=== PATIENT | male | born 1960 | race Caucasian/White ===

== ENCOUNTER 2018-05-14 10:48 | Emergency (ER) | payer OTHER ==
[~2018-05-14] VITALS: Ht 182.9 cm; Wt 99.8 kg
[2018-05-14] MEDS ORDERED: IBUPROFEN600 MG PO (11:18)
[2018-05-14] MEDS ORDERED: KEFLEX500 MG PO (11:54)
== END 2018-05-14 12:45 | disposition home or self-care (01) ==
LOC: ED 10:48
DX: S61.032A Puncture wound without foreign body of left thumb without damage to nail, initial encounter (principal); F17.200 Nicotine dependence, unspecified, uncomplicated; X58.XXXA Exposure to other specified factors, initial encounter
CPT/HCPCS: 73140; 99283

== ENCOUNTER 2019-04-14 13:32 | Emergency (ER) | payer OTHER ==
[~2019-04-14] VITALS: Ht 182.9 cm; Wt 99.8 kg
[~2019-04-14 13:32] MED LIST: IBUPROFEN600 MG PO; KEFLEX500 MG PO
[2019-04-14] MEDS ORDERED: ASPIR 8181 MG PO (13:52)
[2019-04-14] MEDS ORDERED: LIPITOR80 MG PO (13:53)
[2019-04-14] MEDS ORDERED: AUGMENTIN 875-1 EACH PO (13:54)
[2019-04-14] MEDS ORDERED: AMOXICILLIN500 MG (13:54)
[2019-04-14] MEDS ORDERED: LISINOPRIL20 MG PO (13:54)
== END 2019-04-14 14:12 | disposition home or self-care (01) ==
LOC: ED 13:32
DX: S40.022A Contusion of left upper arm, initial encounter (principal); F17.200 Nicotine dependence, unspecified, uncomplicated; Z79.82 Long term (current) use of aspirin; Z79.899 Other long term (current) drug therapy; X58.XXXA Exposure to other specified factors, initial encounter
CPT/HCPCS: 93005; 93010; 99283-25

== ENCOUNTER 2019-08-11 13:45 | Emergency (ER) | payer SELFPAY ==
[~2019-08-11] VITALS: Ht 182.9 cm; Wt 99.8 kg
--- OUTSIDE RECORDS SUMMARY | ~2019-08-11 | XMS | Encounter Summary ---
Demographics + + + | Address | NEED ADDRESS | | | [place] [address] | + + + | Home Phone | | + + + | Preferred Language | Unknown | + + + | Marital Status | Single | + + + | Restorationism Affiliation | Unknown | + + + | Race | Unknown | + + + | Ethnic Group | Unknown | + + + Author + + + | Author | [facility] | | | and [place] | + + + | Organization | [facility] | | | and [place] | + + + | Address | Unknown | + + + | Phone | Unavailable | + + + Support + + +---------+ + | Name | Relationship | Address | Phone | + + +---------+ + | Deb Beachceci | ECON | Unknown | | + + +---------+ + | Bong Finley | ECON | Unknown | | + + +---------+ + Care Team Providers + +------+ + | Care Cloth Shrinker Name | Role | Phone | + +------+ + | No, Physician | PCP | Unavailable | + +------+ + Reason for Visit + + + | Reason | Comments | + + + | Chest Pain | | + + + | Dizziness | | + + + Encounter Details +--------+ + + + + | Date | Type | Department | Care Team | Description | +--------+ + + + + | 02/12/ | Emergency | [facility] | Walter Retana MD | Near syncope | | 2017 | | [facility] | [address] | (Primary Dx); | | | | CENTER [address] | [place] | Hyperventilation | | | | [place] | [address] | syndrome | | | | [address] | | | | | | [phone] | | | +--------+ + + + + Social History + +-------+ +--------+------+ | Tobacco Use | Types | Packs/Day | Years | Date | | | | | Used | | + +-------+ +--------+------+ | Current Every Day | | | | | | Smoker | | | | | + +-------+ +--------+------+ + + +---------+ + | Alcohol Use | Drinks/Week | oz/Week | Comments | + + +---------+ + | Yes | | | | + + +---------+ + + + + | Sex Assigned at | Date Recorded | | | | + + + | Not on file | | + + + + + + + | Job Start Date | Occupation | Industry | + + + + | Not on file | Not on file | Not on file | + + + + + + + + | Travel History | Travel Start | Travel End | + + + + + + | No recent travel history available. | + + documented as of this encounter Last Filed Vital Signs + + + + + | Vital Sign | Reading | Time Taken | Comments | + + + + + | Blood Pressure | 190/120 | 02/12/2017 12:12 PM | | | | | PDT | | + + + + + | Pulse | 108 | 02/12/2017 12:12 PM | | | | | PDT | | + + + + + | Temperature | 36.9 C (98.5 F) | 02/12/2017 10:00 AM | | | | | PDT | | + + + + + | Respiratory Rate | 20 | 02/12/2017 9:58 AM | | | | | PDT | | + + + + + | Oxygen Saturation | 97% | 02/12/2017 12:12 PM | | | | | PDT | | + + + + + | Inhaled Oxygen | - | - | | | Concentration | | | | + + + + + | Weight | 104.3 kg (230 lb) | 02/12/2017 9:58 AM | | | | | PDT | | + + + + + | Height | 182.9 cm (6') | 02/12/2017 9:58 AM | | | | | PDT | | + + + + + | Body Mass Index | 31.19 | 02/12/2017 9:58 AM | | | | | PDT | | + + + + + documented in this encounter Discharge Instructions Instructions Walter Retana MD - 02/12/2017Rest and fluids Return for worsening symptoms, not improving, the new complaints documented in this encounter Plan of Treatment Not on filedocumented as of this encounter Procedures + +--------+ + + + | Procedure Name | Priori | Date/Time | Associated Diagnosis | Comments | | | ty | | | | + +--------+ + + + | CT ANGIOGRAM | STAT | 02/12/2017 | | Results for this | | PULMONARY | | 11:06 AM | | procedure are in the | | | | PDT | | results section. | + +--------+ + + + | CT HEAD WO CONTRAST | STAT | 02/12/2017 | | Results for this | | | | 11:06 AM | | procedure are in the | | | | PDT | | results section. | + +--------+ + + + | RAINBOW BLOOD PANEL | STAT | 02/12/2017 | | Results for this | | | | 10:41 AM | | procedure are in the | | | | PDT | | results section. | + +--------+ + + + | EXTRA LAVENDER TOP | STAT | 02/12/2017 | | Results for this | | TUBE | | 10:41 AM | | procedure are in the | | | | PDT | | results section. | + +--------+ + + + | CBC W/AUTO | STAT | 02/12/2017 | | Results for this | | DIFFERENTIAL | | 10:35 AM | | procedure are in the | | | | PDT | | results section. | + +--------+ + + + | EXTRA GOLD TOP TUBE | Routin | 02/12/2017 | | Results for this | | | e | 10:35 AM | | procedure are in the | | | | PDT | | results section. | + +--------+ + + + | TROPONIN I | STAT | 02/12/2017 | | Results for this | | | | 10:35 AM | | procedure are in the | | | | PDT | | results section. | + +--------+ + + + | PROTIME INR | STAT | 02/12/2017 | | Results for this | | | | 10:35 AM | | procedure are in the | | | | PDT | | results section. | + +--------+ + + + | COMPREHENSIVE | STAT | 02/12/2017 | | Results for this | | METABOLIC PANEL | | 10:35 AM | | procedure are in the | | | | PDT | | results section. | + +--------+ + + + | ECG 12 LEAD | STAT | 02/12/2017 | | Results for this | | | | 9:57 AM | | procedure are in the | | | | PDT | | results section. | + +--------+ + + + documented in this encounter Results CT Angiogram Pulmonary (02/12/2017 11:06 AM PDT) + + | Specimen | + + | | + + + + + | Narrative | Performed At | + + + | CT ANGIOGRAM PULMONARY 02/12/2017 10:50 AM HISTORY: SOB. | [facility] | | COMPARISON: None. PROTOCOL: Thin section axial images of the chest | | | were obtained after uneventful administration of 55 mL Omnipaque | | | 350. Coronal and sagittal reformations were acquired. FINDINGS: | | | Neck base is normal. The heart is of normal size. Mild coronary | | | calcium is present. There is minimal atherosclerosis of the aorta. | | | The pulmonary arteries are unremarkable. SVC is normal. No | | | enlarged lymph nodes are seen in the mediastinum, yasmeen, or axillae. | | | Trachea and esophagus demonstrate no acute findings. There is | | | mild dependent atelectasis of the bilateral lungs. The upper | | | abdomen demonstrates no acute findings. Chest wall structures are | | | normal. There is mild spondylosis. IMPRESSION - No evidence for | | | pulmonary embolism, no acute findings. Dictated and Signed by: | | | Greg Wilburn MD Electronically signed: 02/12/2017 11:48 AM | | + + + + + | Procedure Note | + + | Kedar, Rad Results In - 02/12/2017 11:[address] ANGIOGRAM PULMONARY 02/12/2017 10:50 | | AMHISTORY: SOB.COMPARISON: None.PROTOCOL: Thin section axial images of the chest were | | obtained after uneventfuladministration of 55 mL Omnipaque 350. Coronal and sagittal | | reformations wereacquired.FINDINGS:Neck base is normal.The heart is of normal size. Mild | | coronary calcium is present. There is minimalatherosclerosis of the aorta. The | | pulmonary arteries are unremarkable. SVC isnormal.No enlarged lymph nodes are seen in | | the mediastinum, yasmeen, or axillae. Tracheaand esophagus demonstrate no acute | | findings.There is mild dependent atelectasis of the bilateral lungs.The upper abdomen | | demonstrates no acute findings.Chest wall structures are normal. There is mild | | spondylosis.IMPRESSION -No evidence for pulmonary embolism, no acute findings.Dictated | | and Signed by: Greg Wilburn MD Electronically signed: 02/12/2017 11:48 AM | |Neck base is normal. | | | |The heart is of normal size. Mild coronary calcium is present. There is minimal | |atherosclerosis of the aorta. The pulmonary arteries are unremarkable. SVC is | |normal. | | | |No enlarged lymph nodes are seen in the mediastinum, yasmeen, or axillae. Trachea | |and esophagus demonstrate no acute findings. | | | |There is mild dependent atelectasis of the bilateral lungs. | | | |The upper abdomen demonstrates no acute findings. | | | |Chest wall structures are normal. There is mild spondylosis. | | | |IMPRESSION - | |No evidence for pulmonary embolism, no acute findings. | | | |Dictated and Signed by: Greg Wilburn MD | | Electronically signed: 02/12/2017 11:48 AM | + + + +---------+ + + | Performing | Address | City/State/Zipcode | Phone Number | | Organization | | | | + +---------+ + + | [facility] | | | | + +---------+ + + CT Head wo Contrast (02/12/2017 11:06 AM PDT) + + | Specimen | + + | | + + + + + | Narrative | Performed At | + + + | CT HEAD WO CONTRAST 02/12/2017 10:50 AM HISTORY: Pain. | [facility] | | COMPARISON: None. PROTOCOL: Axial images of the head were obtained | | | along with coronal and sagittal reformations. FINDINGS: There | | | is minimal periventricular hypodensity consistent with small vessel | | | ischemic disease. The brain parenchyma demonstrates no evidence for | | | acute infarct, mass lesion, or hemorrhage. The brainstem is | | | unremarkable. The cerebellum is normal. The pituitary gland is | | | grossly normal. The ventricles, cisterns, and sulci are of normal | | | size and shape. Mild atherosclerosis is present of the carotid | | | arteries. The orbits show no acute findings. Paranasal sinuses are | | | clear. Mastoid air cells are normal. Calvarium, temporal bones, | | | and skull base structures are unremarkable. IMPRESSION - No acute | | | intracranial findings. Minimal small vessel ischemic disease. | | | Dictated and Signed by: Greg Wilburn MD Electronically signed: | | | 02/12/2017 11:42 AM | | + + + + + | Procedure Note | + + | Kedar, Rad Results In - 02/12/2017 11:[address] HEAD WO CONTRAST 02/12/2017 10:50 AM | | | | HISTORY: Pain. | | | | COMPARISON: None. | | | | PROTOCOL: Axial images of the head were obtained along with coronal and sagittal | | reformations. | | | | FINDINGS: | | There is minimal periventricular hypodensity consistent with small vessel | | ischemic disease. The brain parenchyma demonstrates no evidence for acute | | infarct, mass lesion, or hemorrhage. The brainstem is unremarkable. The | | cerebellum is normal. The pituitary gland is grossly normal. | | | | The ventricles, cisterns, and sulci are of normal size and shape. | | | | Mild atherosclerosis is present of the carotid arteries. | | | | The orbits show no acute findings. Paranasal sinuses are clear. Mastoid air | | cells are normal. | | | | Calvarium, temporal bones, and skull base structures are unremarkable. | | | | IMPRESSION - | | No acute intracranial findings. | | | | Minimal small vessel ischemic disease. | | | | Dictated and Signed by: Greg Wilburn MD | | Electronically signed: 02/12/2017 11:42 AM | + + + +---------+ + + | Performing | Address | City/State/Zipcode | Phone Number | | Organization | | | | + +---------+ + + | [facility] | | | | + +---------+ + + Extra Lavender Top Tube (02/12/2017 10:41 AM PDT) + +-------+ + + + | Component | Value | Ref Range | Performed | Pathologist | | | | | At | Signature | + +-------+ + + + | Extra | Done | | [facility] | | | Lavender | | | [facility] | | | Top Tube | | | MEDICAL | | | | | | CENTER - | | | | | | LABORATORY | | + +-------+ + + + + + | Specimen | + + | Blood | + + + + + + + | Performing | Address | City/State/Zipcode | Phone Number | | Organization | | | | + + + + + | [facility] | [address] | [place] | [phone] | | [facility] | | [address] | | | - LABORATORY | | | | + + + + + Extra Gold Top Tube (02/12/2017 10:35 AM PDT) + +-------+ + + + | Component | Value | Ref Range | Performed | Pathologist | | | | | At | Signature | + +-------+ + + + | Extra Gold | Done | | [facility] | | | Top Tube | | | [facility] | | | | | | MEDICAL | | | | | | CENTER - | | | | | | LABORATORY | | + +-------+ + + + + + | Specimen | + + | Blood | + + + + + + + | Performing | Address | City/State/Zipcode | Phone Number | | Organization | | | | + + + + + | [facility] | [address] | [place] | [phone] | | [facility] | | [address] | | | - LABORATORY | | | | + + + + + Protime INR (02/12/2017 10:35 AM PDT) + + + + + + | Component | Value | Ref Range | Performed | Pathologist | | | | | At | Signature | + + + + + + | Prothrombin | 12.7 | 11.3 - 13.9 | [facility] | | | Time | | seconds | [facility] | | | | | | MEDICAL | | | | | | CENTER - | | | | | | LABORATORY | | + + + + + + | INR | 0.93Comment: Usual Oral | 0.90 - 1.10 | [facility] | | | | Anticoagulation Range: | | [facility] | | | | 2.0 - 3.0High | | MEDICAL | | | | Level Oral | | CENTER - | | | | Anticoagulation Range: | | LABORATORY | | | | 2.5 - 3.5 | | | | + + + + + + + + | Specimen | + + | Blood | + + + + + + + | Performing | Address | City/State/Zipcode | Phone Number | | Organization | | | | + + + + + | [facility] | [address] | [place], [place] | [phone] | | [facility] | | [address] | | | - LABORATORY | | | | + + + + + Troponin I (02/12/2017 10:35 AM PDT) + + + + + + | Component | Value | Ref Range | Performed | Pathologist | | | | | At | Signature | + + + + + + | Troponin I | 0.02Comment: Reference | <0.06 ng/mL | [facility] | | | | Ranges:0.00-0.06 = | | [facility] | | | | NORMAL>0.06 = | | MEDICAL | | | | SUSPICIOUS FOR | | CENTER - | | | | MYOCARDIAL DAMAGE NOTE: | | LABORATORY | | | | Values greater than 0.50 | | | | | | ng/mL have been shown | | | | | | to be strongly | | | | | | associated with acute | | | | | | myocardial infarction. | | | | | | The [employer] | | | | | | Cardiology (ACC) | | | | | | recommends a decision | | | | | | limit of 0.06 ng/mL for | | | | | | this assay. Results | | | | | | greater than 0.06 can | | | | | | reflect a pre-infarct | | | | | | acute coronary syndrome, | | | | | | but can also reflect | | | | | | myocardial necrosis or | | | | | | injury that is not due | | | | | | to coronary artery | | | | | | disease. Some of these | | | | | | causes are sepsis, | | | | | | hypocolemia, atrial | | | | | | fibrillation, heart | | | | | | failure, pulmonary | | | | | | embolism, myocarditis, | | | | | | myocardial contusion, | | | | | | and renal failure. The | | | | | | diagnosis of myocardial | | | | | | infarction should be | | | | | | based on a combination | | | | | | of the patient's | | | | | | clinical presentation | | | | | | and the clinical | | | | | | laboratory test results | | | | | | (especially serial | | | | | | troponin levels). | | | | + + + + + + + + | Specimen | + + | Blood | + + + + + + + | Performing | Address | City/State/Zipcode | Phone Number | | Organization | | | | + + + + + | [facility] | [address] | [place], [place] | [phone] | | [facility] | | [address] | | | - LABORATORY | | | | + + + + + Comprehensive Metabolic Panel (02/12/2017 10:35 AM PDT) + + + + + + | Component | Value | Ref Range | Performed | Pathologist | | | | | At | Signature | + + + + + + | Na | 138 | 136 - 149 | [facility] | | | | | mmol/L | [facility] | | | | | | MEDICAL | | | | | | CENTER - | | | | | | LABORATORY | | + + + + + + | K | 3.5 | 3.5 - 5.1 | [facility] | | | | | mmol/L | [facility] | | | | | | MEDICAL | | | | | | CENTER - | | | | | | LABORATORY | | + + + + + + | Cl | 102 | 98 - 109 mmol/L | [facility] | | | | | | [facility] | | | | | | MEDICAL | | | | | | CENTER - | | | | | | LABORATORY | | + + + + + + | CO2 | 30 | 24 - 31 mmol/L | [facility] | | | | | | [facility] | | | | | | MEDICAL | | | | | | CENTER - | | | | | | LABORATORY | | + + + + + + | Anion Gap | 6 | 3 - 16 mmol/L | [facility] | | | | | | [facility] | | | | | | MEDICAL | | | | | | CENTER - | | | | | | LABORATORY | | + + + + + + | Glucose | 109 | 70 - 109 mg/dL | [facility] | | | | | | [facility] | | | | | | MEDICAL | | | | | | CENTER - | | | | | | LABORATORY | | + + + + + + | BUN | 10 | 7 - 18 mg/dL | [facility] | | | | | | [facility] | | | | | | MEDICAL | | | | | | CENTER - | | | | | | LABORATORY | | + + + + + + | Creatinine | 1.28 | 0.60 - 1.30 | [facility] | | | | | mg/dL | [facility] | | | | | | [facility]ICAL | | | | | | CENTER - | | | | | | LABORATORY | | + + + + + + | eGFR if not | 58 (L)Comment: | >=60 | [facility] | | | | GLOMERULAR FILTRATION | mL/min/1.73m2 | [facility] | | | [place]I | RATE,ESTIMATED | | MEDICAL | | | | mL/min/1.40o9Frvt than | | CENTER - | | | | 60 Chronic kidney | | LABORATORY | | | | disease,if found over a | | | | | | 3-month period.Less than | | | | | | 15 Kidney failureFor | | | | | | | | | | | | Americans,multiply the | | | | | | calculated GFR by 1.21. | | | | | | | | | | + + + + + + | Calcium | 9.0 | 8.3 - 10.5 | [facility] | | | | | mg/dL | [facility] | | | | | | MEDICAL | | | | | | CENTER - | | | | | | LABORATORY | | + + + + + + | Albumin | 4.1 | 3.2 - 5.0 g/dL | [facility] | | | | | | [facility] | | | | | | MEDICAL | | | | | | CENTER - | | | | | | LABORATORY | | + + + + + + | Bilirubin | 1.0 | 0.1 - 1.5 mg/dL | [facility] | | | Total | | | [facility] | | | | | | MEDICAL | | | | | | CENTER - | | | | | | LABORATORY | | + + + + + + | Total | 7.5 | 6.0 - 7.8 g/dL | [facility] | | | Protein | | | [facility] | | | | | | MEDICAL | | | | | | CENTER - | | | | | | LABORATORY | | + + + + + + | AST | 19 | 10 - 42 U/L | [facility] | | | | | | [facility] | | | | | | MEDICAL | | | | | | CENTER - | | | | | | LABORATORY | | + + + + + + | ALT | 20 | 6 - 45 U/L | [facility] | | | | | | [facility] | | | | | | MEDICAL | | | | | | CENTER - | | | | | | LABORATORY | | + + + + + + | Alkaline | 81 | 40 - 110 U/L | [facility] | | | Phosphatase | | | [facility] | | | | | | MEDICAL | | | | | | CENTER - | | | | | | LABORATORY | | + + + + + + | Globulin | 3.4 | 2.1 - 3.8 g/dL | [facility] | | | | | | [facility] | | | | | | MEDICAL | | | | | | CENTER - | | | | | | LABORATORY | | + + + + + + | Albumin/Clara | 1.2 | 0.8 - 2.0 | [facility] | | | bulin Ratio | | | [facility] | | | | | | MEDICAL | | | | | | CENTER - | | | | | | LABORATORY | | + + + + + + | BUN/Creatin | 7.8 | | [facility] | | | ine Ratio | | | [facility] | | | | | | MEDICAL | | | | | | CENTER - | | | | | | LABORATORY | | + + + + + + + + | Specimen | + + | Blood | + + + + + + + | Performing | Address | City/State/Zipcode | Phone Number | | Organization | | | | + + + + + | [facility] | [address] | [place] | [phone] | | [facility] | | [address] | | | - LABORATORY | | | | + + + + + CBC w/ Auto Differential (02/12/2017 10:35 AM PDT) + + + + + + | Component | Value | Ref Range | Performed | Pathologist | | | | | At | Signature | + + + + + + | WBC | 9.9 | 4.0 - 11.0 K/uL | [facility] | | | | | | [facility] | | | | | | MEDICAL | | | | | | CENTER - | | | | | | LABORATORY | | + + + + + + | RBC | 5.31 | 4.30 - 5.70 | [facility] | | | | | M/uL | [facility] | | | | | | MEDICAL | | | | | | CENTER - | | | | | | LABORATORY | | + + + + + + | Hemoglobin | 16.2 | 13.5 - 18.0 | [facility] | | | | | g/dL | [facility] | | | | | | MEDICAL | | | | | | CENTER - | | | | | | LABORATORY | | + + + + + + | Hematocrit | 48.3 | 40.0 - 51.0 % | [facility] | | | | | | [facility] | | | | | | MEDICAL | | | | | | CENTER - | | | | | | LABORATORY | | + + + + + + | MCV | 91.0 | 83.0 - 101.0 fL | [facility] | | | | | | [facility] | | | | | | MEDICAL | | | | | | CENTER - | | | | | | LABORATORY | | + + + + + + | MCH | 30.6 | 28.0 - 35.0 pg | [facility] | | | | | | [facility] | | | | | | MEDICAL | | | | | | CENTER - | | | | | | LABORATORY | | + + + + + + | MCHC | 33.6 | 32.0 - 36.0 | [facility] | | | | | g/dL | [facility] | | | | | | MEDICAL | | | | | | CENTER - | | | | | | LABORATORY | | + + + + + + | RDW-CV | 12.7 | <15.0 % | [facility] | | | | | | [facility] | | | | | | MEDICAL | | | | | | CENTER - | | | | | | LABORATORY | | + + + + + + | Platelet | 199 | 140 - 440 K/uL | [facility] | | | Count | | | [facility] | | | | | | MEDICAL | | | | | | CENTER - | | | | | | LABORATORY | | + + + + + + | MPV | 9.0 | fL | [facility] | | | | | | [facility] | | | | | | MEDICAL | | | | | | CENTER - | | | | | | LABORATORY | | + + + + + + | % | 73.2 | 45.0 - 82.0 % | [facility] | | | Neutrophils | | | [facility] | | | | | | MEDICAL | | | | | | CENTER - | | | | | | LABORATORY | | + + + + + + | % | 17.3 (L) | 20.0 - 45.0 % | [facility] | | | Lymphocytes | | | [facility] | | | | | | MEDICAL | | | | | | CENTER - | | | | | | LABORATORY | | + + + + + + | % Monocytes | 8.4 | 4.0 - 12.0 % | [facility] | | | | | | [facility] | | | | | | MEDICAL | | | | | | CENTER - | | | | | | LABORATORY | | + + + + + + | % | 0.6 | 0.0 - 5.0 % | [facility] | | | Eosinophils | | | [facility] | | | | | | MEDICAL | | | | | | CENTER - | | | | | | LABORATORY | | + + + + + + | % Basophils | 0.5 | 0.0 - 1.0 % | [facility] | | | | | | [facility] | | | | | | MEDICAL | | | | | | CENTER - | | | | | | LABORATORY | | + + + + + + | Absolute | 7.20 | 1.80 - 8.50 | [facility] | | | Neutrophils | | K/uL | [facility] | | | | | | MEDICAL | | | | | | CENTER - | | | | | | LABORATORY | | + + + + + + | Absolute | 1.70 | 0.60 - 3.20 | [facility] | | | Lymphocytes | | K/uL | [facility] | | | | | | MEDICAL | | | | | | CENTER - | | | | | | LABORATORY | | + + + + + + | Absolute | 0.80 | 0.00 - 1.00 | [facility] | | | Monocytes | | K/uL | [facility] | | | | | | MEDICAL | | | | | | CENTER - | | | | | | LABORATORY | | + + + + + + | Absolute | 0.10 | 0.00 - 0.40 | [facility] | | | Eosinophils | | K/uL | [facility] | | | | | | MEDICAL | | | | | | CENTER - | | | | | | LABORATORY | | + + + + + + | Absolute | 0.00 | 0.00 - 0.10 | [facility] | | | Basophils | | K/uL | [facility] | | | | | | MEDICAL | | | | | | CENTER - | | | | | | LABORATORY | | + + + + + + + + | Specimen | + + | Blood | + + + + + + + | Performing | Address | City/State/Zipcode | Phone Number | | Organization | | | | + + + + + | [facility] | [address] | [place] | [phone] | | [facility] | | [address] | | | - LABORATORY | | | | + + + + + ECG 12 lead (02/12/2017 9:57 AM PDT) + + + + + + | Component | Value | Ref Range | Performed | Pathologist | | | | | At | Signature | + + + + + + | VENTRICULAR | 113 | BPM | [facility] | | | RATE EKG | | | | | + + + + + + | ATRIAL RATE | 113 | BPM | [facility] | | + + + + + + | P-R | 130 | ms | [facility] | | | INTERVAL | | | | | + + + + + + | QRS | 84 | ms | [facility] | | | DURATION | | | | | + + + + + + | Q-T | 348 | ms | [facility] | | | INTERVAL | | | | | + + + + + + | Q-T | 477 | ms | [facility] | | | INTERVAL | | | | | | (CORRECTED) | | | | | + + + + + + | P WAVE AXIS | 57 | degrees | [facility] | | + + + + + + | QRS AXIS | -18 | degrees | [facility] | | + + + + + + | T AXIS | 75 | degrees | [facility] | | + + + + + + | INTERPRETAT | Sinus | | [facility] | | | ION TEXT | tachycardiaOtherwise | | | | | | normal ECGNo previous | | | | | | ECGs availableConfirmed | | | | | | by NINFA TORRES MD | | | | | | ([id number]) on 02/13/2017 | | | | | | 6:56:43 AM | | | | + + + + + + + + | Specimen | + + | | + + + + + | Narrative | Performed At | + + + | | | + + + + +---------+ + + | Performing | Address | City/State/Zipcode | Phone Number | | Organization | | | | + +---------+ + + | [facility] | | | | + +---------+ + + documented in this encounter Visit Diagnoses + + | Diagnosis | + + | Near syncope - Primary Syncope and collapse | + + | Hyperventilation syndrome Respiratory malfunction arising from mental factors | + + documented in this encounter Administered Medications + +--------+ +--------+------+------+ | Medication Order | MAR | Action | Dose | Rate | Site | | | Action | Date | | | | + +--------+ +--------+------+------+ | iohexol (OMNIPAQUE 350) 350 | Given | 02/13/20 | 55 mLs | | | | mg/mL injection 55 mL 55 mL, | | 17 11:00 | | | | | Intravenous, ONCE PRN, Other, for | | AM PDT | | | | | imaging CT study, Starting Jeanine | | | | | | | 02/12/17 at 1050, For 1 dose, | | | | | | | Radiology | | | | | | + +--------+ +--------+------+------+ +---+---+ | | | +---+---+ + +-------+ +--------+---+---+ | LORazepam (ATIVAN) injection | Given | 02/13/20 | 0.5 mg | | | | 0.5 mg 0.5 mg, Intravenous, | | 17 10:42 | | | | | ONCE, Jeanine 02/12/17 at 1015, For 1 | | AM PDT | | | | | dose | | | | | | + +-------+ +--------+---+---+ +---+---+ | | | +---+---+ + +---------+ +--------+-------+---+ | sodium chloride 0.9% (NS) bolus | New Bag | 02/13/20 | 1,000 | 1000 | | | 1,000 mL 1,000 mL, Intravenous, | | 17 11:14 | mLs | mL/hr | | | Administer over 1 Hours, ONCE, | | AM PDT | | | | | Jeanine 02/12/17 at 1015, For 1 dose | | | | | | + +---------+ +--------+-------+---+ +---+---+ | | | +---+---+ + +------+ +--------+-------+---+ | sodium chloride 0.9% (NS) bolus | Push | 02/13/20 | 45 mLs | 2700 | | | 45 mL 45 mL, Intravenous, | | 17 11:00 | | mL/hr | | | Administer over 1 Minutes, ONCE | | AM PDT | | | | | PRN, for imaging CT study, | | | | | | | Starting [facility] 02/12/17 at 1050, For | | | | | | | 1 dose, Radiology | | | | | | + +------+ +--------+-------+---+ +---+---+ | | | +---+---+ documented in this encounter"
--- OUTSIDE RECORDS SUMMARY | ~2019-08-11 | XMS | Encounter Summary ---
Demographics + + + | Address | NEED ADDRESS | | | [place] [address] | + + + | Home Phone | | + + + | Preferred Language | Unknown | + + + | Marital Status | Single | + + + | Restoration Affiliation | Unknown | + + + | Race | Unknown | + + + | Ethnic Group | Unknown | + + + Author + + + | Author | [facility] | | | and [place] | + + + | Organization | [facility] | | | and [...] Team Providers + +------+ + | Care Candy Counter Clerk Name | Role | Phone | + +------+ + | No, Physician | PCP | Unavailable | + +------+ + Reason for Visit + + + | Reason | Comments | + + + | Ankle Injury | | + + + Encounter Details +--------+ + + + + | Date | Type | Department | Care Team | Description | +--------+ + + + + | 08/31/ | Emergency | [facility] | [place], | Sprain of right | | 2018 | | [facility] | [address] [address] | medial ankle joint, | | | | CENTER [address] | [place] | initial encounter | | | | [place] | [address] | (Primary Dx) | | | | [address] | | | | | | [phone] | | | +--------+ + + + + Social History + + + +--------+------+ | Tobacco Use | Types | Packs/Day | Years | Date | | | | | Used | | + + + +--------+------+ | Current Every Day | Cigarettes | 0.04 | | | | Smoker | | | | | + + + +--------+------+ + +---+---+---+ | Smokeless Tobacco: | | | | | Never Used | | | | + +---+---+---+ + + +---------+ + | Alcohol Use | Drinks/Week | oz/Week | Comments | + + +---------+ + | Yes | 6 Cans of beer | 6.0 | week | + + +---------+ + + + [...] + + + | Blood Pressure | 155/97 | 08/31/2017 9:01 AM | | | | | PST | | + + + + + | Pulse | 101 | 08/31/2017 9:01 AM | | | | | PST | | + + + + + | Temperature | 36.4 C (97.5 F) | 08/31/2017 9:01 AM | | | | | PST | | + + + + + | Respiratory Rate | 18 | 08/31/2017 9:01 AM | | | | | PST | | + + + + + | Oxygen Saturation | 93% | 08/31/2017 9:01 AM | | | | | PST | | + + + + + | Inhaled Oxygen | - | - | | | Concentration | | | | + + + + + | Weight | 112.5 kg (248 lb) | 08/31/2017 9:01 AM | | | | | PST | | + + + + + | Height | 182.9 cm (6') | 08/31/2017 9:01 AM | | | | | PST | | + + + + + | Body Mass Index | 33.63 | 08/31/2017 9:01 AM | | | | | PST | | + + + + + documented in this encounter Discharge Instructions Instructions [place] MD - 08/31/2017Ice and elevate for 2 days, crutches and no we ight bearing until pain free. Ankle brace for 1 month. Recheck in one week to start rehab and range of motion exercises Tylenol and ibuprofen as needed for pain. We are committed to improving the emergency department experience for our patients, and reese althea love to hear your feedback. If you receive a customer satisfaction survey either by mail or email, please fill it out and let us know how we are doing! We love to hear about any p ositive experiences, and we need to hear about any areas we can improve upon. We appreciate you taking the time to fill out this survey so we can continue to serve our community in th e best way possible. documented in this encounter Medications at Time of Discharge + + + +---------+ + + | Medication | Sig | Dispensed | Refills | Start | End Date | | | | | | Date | | + + + +---------+ + + | lisinopril | Take 1 tablet by | 30 | 3 | 04/07/20 | | | (PRINIVIL, ZESTRIL) | mouth Daily. | tablet | | 17 | 9 | | 10 mg | | | | | | | tabletIndications: | | | | | | | Essential | | | | | | | hypertension with | | | | | | | goal blood pressure | | | | | | | less than 130/80 | | | | | | + + + +---------+ + + documented as of this encounter Plan of Treatment Not on filedocumented as of this encounter Procedures + +--------+ + + + | Procedure Name | Priori | Date/Time | Associated Diagnosis | Comments | | | ty | | | | + +--------+ + + + | XR ANKLE RIGHT 3 + | STAT | 08/31/2017 | | Results for this | | [facility]W | | 9:38 AM | | procedure are in the | | | | PST | | results section. | + +--------+ + + + documented in this encounter Results XR Ankle Right 3 + Vw (08/31/2017 9:38 AM PST) + + | Specimen | + + | | + + + + + | Narrative | Performed At | + + + | EXAM:XR ANKLE RIGHT 3 + [facility]W CLINICAL HISTORY: ANKLE INJURY | [facility] | | COMPARISON: None. FINDINGS: 4 nonweightbearing views of the right | | | ankle. There is diffuse soft tissue swelling. There are multiple | | | radiopaque densities projecting in the soft tissues of the inferior | | | and lateral hindfoot. Irregularities at the distal aspect of the | | | malleoli are consistent with remote trauma. No acute fracture. No | | | current malalignment. There is a small plantar calcaneal spur. | | | IMPRESSION - No acute osseous abnormality. Diffuse soft | | | tissue swelling. Multiple radiopaque densities in the soft tissues | | | of the lateral and inferior hindfoot. Dictated and Signed by: | | | Oskar Gutierrez MD Electronically signed: 08/31/2017 9:44 AM | | + + + + + | Procedure Note | + + | Bennett Thacker Results In - 08/31/2017 9:47 AM PST EXAM:XR ANKLE RIGHT 3 + [facility] | | | | CLINICAL HISTORY: ANKLE INJURY | | | | COMPARISON: None. | | | | FINDINGS: 4 nonweightbearing views of the right ankle. | | | | There is diffuse soft tissue swelling. There are multiple radiopaque densities | | projecting in the soft tissues of the inferior and lateral hindfoot. | | Irregularities at the distal aspect of the malleoli are consistent with remote | | trauma. No acute fracture. No current malalignment. There is a small plantar | | calcaneal spur. | | | | IMPRESSION - | | | | No acute osseous abnormality. | | | | Diffuse soft tissue swelling. | | | | Multiple radiopaque densities in the soft tissues of the lateral and inferior | | hindfoot. | | | | Dictated and Signed by: Oskar Gutierrez MD | | Electronically signed: 08/31/2017 9:44 AM | + + + +---------+ + + | Performing | Address | City/State/Zipcode | Phone Number | | Organization | | | | + +---------+ + + | [facility] | | | | + +---------+ + + documented in this encounter Visit Diagnoses + + | Diagnosis | + + | Sprain of right medial ankle joint, initial encounter - Primary | + + documented in this encounter Administered Medications + +--------+ +--------+------+------+ | Medication Order | MAR | Action | Dose | Rate | Site | | | Action | Date | | | | + +--------+ +--------+------+------+ | acetaminophen (TYLENOL) tablet | Given | 08/31/19 | 650 mg | | | | 650 mg 650 mg, Oral, ONCE PRN, | | 18 9:38 | | | | | Pain, Starting 08/31/17 at | | AM PST | | | | | 0914, For 1 dose | | | | | | + +--------+ +--------+------+------+ +---+---+ | | | +---+---+ + +-------+ +--------+---+---+ | ibuprofen (ADVIL,MOTRIN) tablet | Given | 08/31/19 | 600 mg | | | | 600 mg 600 mg, Oral, ONCE, Mon | | 18 9:38 | | | | | 08/31/17 at 0920, For 1 dose, Give | | AM PST | | | | | with food., | | | | | | + +-------+ +--------+---+---+ +---+---+ | | | +---+---+ documented in this encounter"
--- OUTSIDE RECORDS SUMMARY | ~2019-08-11 | XMS | Encounter Summary ---
Demographics + + + | Address | NEED ADDRESS | | | [place] [address] | + + + | Home Phone | | + + + | Preferred Language | Unknown | + + + | Marital Status | Single | + + + | Faith Affiliation | Unknown | + + + | Race | Unknown | + + + | Ethnic Group | Unknown | + + + Author + + + | Author | [facility] | | | and [place] | + + + | Organization | [facility] | | | and [place] | + + + | Address | Unknown | + + + | Phone | Unavailable | + + + Support + + +---------+ + | Name | Relationship | Address | Phone | + + +---------+ + | Deb Tabares | ECON | Unknown | | + + +---------+ + | Bong Finley | ECON | Unknown | | + + +---------+ + Care Team Providers + +------+ + | Care Chemical Process Operator Name | Role | Phone | + +------+ + | Marshall Sanchez PA-C | PCP | | + +------+ + Reason for Visit + + + | Reason | Comments | + + + | Weakness | | + + + | Slurred Speech | | + + + Auth/Cert +--------+--------+ + + + + | Status | Reason | Specialty | Diagnoses / | Referred By | Referred To | | | | | Procedures | Contact | Contact | +--------+--------+ + + + + | | | | Diagnoses | | | | | | | | | | | | | | Hyperglycemi | | | | | | | a | | | | | | | 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) | | | | | | | | | | | | | | Hypertensive | | | | | | | emergency | | | | | | | Essential | | | | | | | hypertension | | | | | | | with goal | | | | | | | blood | | | | | | | pressure | | | | | | | less than | | | | | | | 130/80 | | | | | | | Cerebrovascu | | | | | | | lar accident | | | | | | | (CVA), | | | | | | | unspecified | | | | | | | mechanism | | | | | | | (HCC) | | | | | | | | | | +--------+--------+ + + + + Encounter Details +--------+ + + + + | Date | Type | Department | Care Team | Description | +--------+ + + + + | 04/05/ | Hospital | [facility] | Greg Rick | Hyperglycemia | | 2019 - | Encounter | [facility] | MD León [address] | (Primary Dx); | | | | [address] | [address] | Cerebrovascular | | 04/12/ | | [place] [address] | [place] [address] | accident (CVA), | | 2019 | | [phone] | [phone] | unspecified | | | | | | mechanism (HCC); | | | | | Rachna Retana MD | Amphetamine abuse | | | | | [address] | (HCC); Hypertensive | | | | | [place], [place] | emergency; Essential | | | | | [id number] | hypertension with | | | | | | goal blood pressure | | | | | | less than 130/80 | +--------+ + + + + Social [...] 6 Cans of beer | 6.0 | | + + +---------+ + + [...] + + + | Blood Pressure | 158/96 | 04/12/2019 7:51 AM | | | | | PDT | | + + + + + | Pulse | 72 | 04/12/2019 7:51 AM | | | | | PDT | | + + + + + | Temperature | 36.4 C (97.5 F) | 04/12/2019 7:51 AM | | | | | PDT | | + + + + + | Respiratory Rate | 18 | 04/12/2019 7:51 AM | | | | | PDT | | + + + + + | Oxygen Saturation | 96% | 04/12/2019 7:51 AM | | | | | PDT | | + + + + + | Inhaled Oxygen | - | - | | | Concentration | | | | + + + + + | Weight | 84.4 kg (186 lb 1.1 | 04/06/2019 2:41 AM | | | | oz) | PDT | | + + + + + | Height | 182.9 cm (6') | 04/06/2019 2:41 AM | | | | | PDT | | + + + + + | Body Mass Index | 25.24 | 04/06/2019 2:41 AM | | | | | PDT | | + + + + + documented in this encounter Discharge Summaries Matthew Davies MD - 04/11/2019 4:06 PM PDTFormatting of this note might be different from t he original. [place], [place] HOSPITALIST DISCHARGE SUMMARY Pt. Name/Age/: Dannie Win 58 y.o. 1960 Date of Admission: 04/05/2019 Date of Discharge: 04/11/2019 Admitting Physician: Rachna Retana MD Primary Care Provider: Marshall Sanchez PA-C Discharging Physician: Matthew Davies MD DISCHARGE DIAGNOSES: Active Hospital Problems Diagnosis Stroke (cerebrum) Resolved Hospital Problems No resolved problems to display. DISCHARGE MEDICATIONS: Discharge Medications New Medications Details amoxicillin-clavulanate 875-125 mg per tablet Take 1 tablet by mouth 2 times daily. Follow up with dentist for extraction of right upper teeth causing right sinusitis Indications: sinusitis dental infection aka: AUGMENTIN aspirin 81 MG EC tablet Take 1 tablet by mouth Daily. For stroke prevention. Follow with family doctor for refills aka: ASPIRIN ADULT LOW STRENGTH atorvaSTATin 80 MG tablet Take 0.5 tablets by mouth Daily. For stroke prevention. Follow with family doctor for refi lls aka: LIPITOR Changed Medications Details lisinopril 20 mg tablet Take 1 tablet by mouth Daily. Follow with family doctor What changed: medication strength how much to take additional instructions aka: [facility] HOSPITAL COURSE: Please refer to the H&P for full details and the most recent rounding rounding (progress) n ote. In short, Dannie Win is a 58 y.o. m w/ Left sided facial droop, slurred speech a nd unable to move or feel left sided extremities, and hypertensive, w/ Meth + on tox screen consistent w/ Right cerebral CVA acute, declined MRI to confirm. Somnolent initially, improv ed throughout hospitalization w/ improved but ongoing left sided/facial weakness, treated w/ ASA/statin. HTN treated w/ increasing home lisinopril. Right maxillary sinusitis likely due to poor right maxillary dentition and communication, f ever/malaise resolved w/ unasyn then discharge w/ augmentin, needs dentist follow up/extract ions to prevent recurrent sinusitis. Patient was ambulating w/ mild limp/tolerating diet with much snacking/having BM prior to d ischarge. Pending SNF placement for ongoing rehab for left sided weakness. In detail Total duration of encounter: 6 days R CVA acute, ongoing stable improving left sided mobility, resolved somnolence Right handed --initial CTA neg and subsequent CT head neg / CTA carotid neg / tele neg Refused MRI / echo w/ bubble negative --hdl41 ldl 48/ A1c 5 --permissive HTN --asa does not take at baseline, started, started statin -- repeat CT w/o expectant acute right ischemia HTN emergency resolved Off nicardipine gtt, s/p labetolol overnight x 1 --resumed home and increased lisinopril Right maxillary sinusitis/bronchittis due to connecting Poor dentition unasyn --> augmentin / prn duonebs Needs dentist for extraction Meth/smoker/ Homelessness Banana bag Untreated hep C DVT prophylaxis - lovenox / Disposition - snf per PT/OT Plan discussed with patient. 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 04/09 ongoing left sided weakness mild, able to ambulate w/ assist in room w/ limp, declined nebs. Discussed nebs to be helpful for sinusitis 04/10 no issues overnight, ambulates w/ limp, continues to refuse duoneb / administration 04/11 ambulated, less weak Treatment log Off nicardipine 2100 04/05 04/07 lisinopril, unasyn 04/08 duonebs BID 04/09 augmentin, dc unasyn 04/10 change nebs to PRN 04/11 no change Most recent weight: Input and output for last 24hrs: Wt Readings from Last 1 Encounters: 04/06/19 84.4 kg (186 lb 1.1 oz) I/O last 24 Hours: In: 940 [P.O.:940] Out: 1275 [Urine:1275] Vitals Ranges: Temp: [35.8 C (96.4 F)-36.4 C (97.5 F)] 35.8 C (96.4 F) Pulse: [70-75] 70 Resp: [16-20] 16 BP: (142-198)/(80-92) 144/92 Vitals: Temp: 35.8 C (96.4 F) BP: (!) 144/92 Pulse: 70 Resp: 16 SpO2: 96 % SpO2 96 % on room air at flow rate L/min Labs last 24 hours No results found for this or any previous visit (from the past 24 hour(s)). Micro results Microbiology Results (72 hrs) No results found for the last 72 hours. Radiology results Echo 04/06/19 1. This is a technically very limited study due to a poor acoustic window. 2. Normal left ventricular size, wall thickness and motion. Preserved left ventricular systolic function. LVEF is 55%. 3. Grade 1 left ventricular diastolic dysfunction. 4. Not well visualized valvular structure. 5. Not able to assess right-sided pressure. 6. Not well visualized IVC. 7. Negative agitated saline bubble study at rest, during Valsalva and coughing maneuver. 04/05/19 CTa No acute intracranial abnormality identified. Negative CTA of the head and neck or any acute occlusion or dissection. 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 Multiple severe/large periapical root abscesses. One of the periapical root abscesses is seen to erode through the floor of the right maxillary sinus and may be a cause for the severe right-sided maxillary sinus and ethmoid air cell mucosal thickening/inflammatory changes. 04/08/19 CT head noncontrast 1. NO EVIDENCE OF EVOLVING ISCHEMIA OR OTHER ACUTE INTRACRANIAL DISEASE. 2. 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 3. SLIGHT IMPROVEMENT IN RIGHT MAXILLARY SINUS OPACIFICATION WITH PERSISTENT ETHMOID SINUS DISEASE AND INCREASED MILD PARANASAL SINUS DISEASE OTHERWISE DESCRIBED. PERIAPICAL LUCENCIES INVOLVING RESIDUAL ERODED MAXILLARY TEETH ARE AGAIN NOTED, AND POTENTIAL COMMUNICATION WITH THE RIGHT MAXILLARY SINUS IS AGAIN SUGGESTED. PROCEDURES AND CONSULTS: albina PENDING RESULTS: na DISPOSITION AND DISCHARGE INSTRUCTIONS: Follow-up Information Marshall Sanchez PA-C. Go on 04/15/2019. 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 Contact information: [address] [place] [phone] Condition: Patient being discharged with condition improved Diet: For your reference, current, active order is: Diet fat and cholesterol modified; dental soft; thin liquids allowed; Effective Now greater than 30 minutes were spent on discharge and coordination of post-hospital care. Electronically signed by: Matthew Davies MD, 04/11/2019 7:58 [facility] documented in this enco unter Medications at Time of Discharge + + + +---------+ + + | Medication | Sig | Dispensed | Refills | Start | End Date | | | | | | Date | | + + + +---------+ + + | | Take 1 tablet by | 10 | 0 | 04/10/20 | | | amoxicillin-clavulan | mouth 2 times daily. | tablet | | 19 | | | ate (AUGMENTIN) | Follow up with | | | | | | 875-125 mg per | dentist for | | | | | | tabletIndications: | extraction of right | | | | | | sinusitis dental | upper teeth causing | | | | | | infection | right sinusitis | | | | | | | Indications: | | | | | | | sinusitis dental | | | | | | | infection | | | | | + + + +---------+ + + | aspirin (ASPIRIN | Take 1 tablet by | 30 | 0 | 04/10/20 | | | ADULT LOW STRENGTH) | mouth Daily. For | tablet | | 19 | | | 81 MG EC tablet | stroke prevention. | | | | | | | Follow with family | | | | | | | doctor for refills | | | | | + + + +---------+ + + | atorvaSTATin | Take 0.5 tablets by | 30 | 0 | 04/11/20 | | | (LIPITOR) 80 MG | mouth Daily. For | tablet | | 19 | | | tablet | stroke prevention. | | | | | | | Follow with family | | | | | | | doctor for refills | | | | | + + + +---------+ + + | lisinopril | Take 1 tablet by | 30 | 0 | 04/11/20 | | | (PRINIVIL, ZESTRIL) | mouth Daily. Follow | tablet | | 19 | | | 20 mg tablet | with family doctor | | | | | + + + +---------+ + + documented as of this encounter Progress Notes Rohan Gaines RN - 04/12/2019 11:17 AM PDTPatient discharge instructions reviewe d, all prescriptions given to and reminded to fill at [facility] in [facility], remin ded to stay off of drugs and alcohol for his health and well being, reminded that she has a follow-up with a new PCP, all questions answered. Electronically signed by: Rohan Hobson RN 04/12/2019 11:19 Matthew Petersen MD - 04/11/2019 4:08 PM PDT [facility] PROGRESS NOTE Patient: Dannie Win : 1960: Age: 58 y.o. MedRec: [id number] Admission date: 04/05/2019 Hospital day # : 5 Physician author: Matthew Davies MD Today: 04/11/2019 Reason for hospitalization Left sided facial droop, slurred speech and unable to move or feel left sided extremities, and hypertensive Meth + Echo 04/06/19 1. This is a technically very limited study due to a poor acoustic window. 2. Normal left ventricular size, wall thickness and motion. Preserved left ventricular sy stolic function. LVEF is 55%. 3. Grade 1 left ventricular diastolic dysfunction. 4. Not well visualized valvular structure. 5. Not able to assess right-sided pressure. 6. Not well visualized IVC. 7. Negative agitated saline bubble study at rest, during Valsalva and coughing maneuver. Assessment and Plan Active Hospital Problems Diagnosis Stroke (cerebrum) Poor dentition Acute recurrent maxillary sinusitis Resolved Hospital Problems No resolved problems to display. Hospital Day: 7 R CVA acute, ongoing stable improving left sided mobility, resolved somnolence Right handed --initial CTA neg and subsequent CT head neg / CTA carotid neg / tele neg Refused MRI / echo w/ bubble negative --hdl41 ldl 48/ A1c 5 --permissive HTN --asa does not take at baseline, started, started statin -- repeat CT w/o expectant acute right ischemia HTN emergency resolved Off nicardipine gtt, s/p labetolol overnight x 1 --resumed home and increased lisinopril Right maxillary sinusitis/bronchittis due to connecting Poor dentition unasyn --> augmentin / prn duonebs Needs dentist for extraction Meth/smoker/ Homelessness Banana bag Untreated hep C DVT prophylaxis - lovenox / Disposition - snf per PT/OT Plan discussed with patient. 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 04/09 ongoing left sided weakness mild, able to ambulate w/ assist in room w/ limp, declined nebs. Discussed nebs to be helpful for sinusitis 04/10 no issues overnight, ambulates w/ limp, continues to refuse duoneb 1/2 administration 04/11 ambulated, less weak Treatment log Off nicardipine 2100 04/05 04/07 lisinopril, unasyn 04/08 duonebs BID 04/09 augmentin, dc unasyn 04/10 change nebs to PRN 04/11 no change Exam On room air General NAD still found awake, tanned skin, poor dentition Cardiac S1 S2 RRR 2+ radial pulses Lung CTAB, coarse coughing, sinus congestion quality of voice Abdominal soft nt nd + BS Neuro no dysarthria, adentulous, 5-/5 left upper/lower extremity, 5/5 right lower/upper ext remity strengths CN2-12 grossly symmetrical intact /ongoing left facial nasolabial weakness, tongue deviate to right, Left visual deficits, left upper dysmetria Extremities no hargrove edema Vitals Ranges: Temp: [35.8 C (96.4 F)-36.4 C (97.5 F)] 35.8 C (96.4 F) Pulse: [67-75] 67 Resp: [16-20] 18 BP: (144-198)/(80-94) 146/94 Vitals: Temp: 35.8 C (96.4 F) BP: (!) 146/94 Pulse: 67 Resp: 18 SpO2: 98 % SpO2 98 % on room air at flow rate L/min Objective Data Point of care glucose Recent Labs Lab 04/10/19 0702 04/09/19 1951 04/08/19 2024 04/08/19 1156 04/08/19 0625 04/07/19 2111 POCGLU 135* 112* 90 108 96 127* Labs last 24 hours No results found for this or any previous visit (from the past 24 hour(s)). Micro results Microbiology Results (72 hrs) No results found for the last 72 hours. Radiology results No results found. Current Medications: Current Facility-Administered Medications Medication Dose Route Frequency Provider Last Rate Last Dose acetaminophen (TYLENOL) tablet 650 mg 650 mg Oral Q4H PRN Matthew Davies MD 650 mg at 04/09/19 0031 amoxicillin-clavulanate (AUGMENTIN) 875-125 mg per tablet 1 tablet 1 tablet Oral BID N Moon Dvaies MD 1 tablet at 04/11/19 0915 aspirin EC tablet 325 mg 325 mg Oral Daily Matthew Davies MD 325 mg at 04/11/19 0916 atorvaSTATin (LIPITOR) tablet 80 mg 80 mg Oral Daily Matthew Davies MD 80 mg at 0915 enoxaparin (LOVENOX) 40 mg/0.4 mL injection 40 mg 40 mg Subcutaneous Daily Matthew Davies MD 40 mg at 04/11/19 0916 famotidine (PEPCID) tablet 20 mg 20 mg Oral BID Matthew Davies MD 20 mg at 04/11/19 09 15 lisinopril (PRINIVIL, ZESTRIL) tablet 20 mg 20 mg Oral Daily Matthew Davies MD 20 mg a t 04/11/19 0915 LORazepam (ATIVAN) injection 1-4 mg 1-4 mg Intravenous PRN Matthew Davies MD polyethylene glycol (MIRALAX) powder 17 g 17 g Oral Daily PRN Matthew Davies MD Current Infusions: Matthew Davies MD 04/11/2019 16:08 [facility] im, MD Matthew - 04/10 11:44 AM PDT [facility] HOSPITALIST PROGRESS NOTE Patient: Dannie Win : 1960: Age: 58 y.o. MedRec: [id number] Admission date: 04/05/2019 Hospital day # : 4 Physician author: Matthew Davies MD Today: 04/10/2019 Reason for hospitalization Left sided facial droop, slurred speech and unable to move or feel left sided extremities, and hypertensive Meth + Echo 04/06/19 1. This is a technically very limited study due to a poor acoustic window. 2. Normal left ventricular size, wall thickness and motion. Preserved left ventricular sy stolic function. LVEF is 55%. 3. Grade 1 left ventricular diastolic dysfunction. 4. Not well visualized valvular structure. 5. Not able to assess right-sided pressure. 6. Not well visualized IVC. 7. Negative agitated saline bubble study at rest, during Valsalva and coughing maneuver. Assessment and Plan Active Hospital Problems Diagnosis Stroke (cerebrum) Resolved Hospital Problems No resolved problems to display. Hospital Day: 6 R CVA/TIA acute, ongoing stable improving left sided mobility, resolved somnolence Right handed --initial CTA neg and subsequent CT head neg / CTA carotid neg / tele neg Refused MRI / echo w/ bubble negative --hdl41 ldl 48/ A1c 5 --permissive HTN --asa does not take at baseline --statin -- repeat CT w/o expectant acute right ischemia HTN emergency resolved Off nicardipine gtt --resumed home and increased lisinopril Right maxillary sinusitis/bronchittis due to connecting Poor dentition unasyn --> augmentin / prn duonebs Needs dentist for extraction Meth/smoker/ Homelessness Banana bag Untreated hep C DVT prophylaxis - lovenox / Disposition - snf per PT/OT Plan discussed with patient. 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 04/09 ongoing left sided weakness mild, able to ambulate w/ assist in room w/ limp, declined nebs. Discussed nebs to be helpful for sinusitis 04/10 no issues overnight, ambulates w/ limp, continues to refuse duoneb 08/25 administration Treatment log Off nicardipine 2100 04/05 04/07 lisinopril, unasyn 04/08 duonebs BID 04/09 augmentin, dc unasyn 04/10 change nebs to PRN Exam On room air General NAD still found awake, tanned skin, poor dentition Cardiac S1 S2 RRR 2+ radial pulses Lung CTAB, coarse coughing, sinus congestion quality of voice Abdominal soft nt nd + BS Neuro no dysarthria, adentulous, 5-/5 left upper/lower extremity, 5/5 right lower/upper ext remity strengths CN2-12 grossly symmetrical intact /ongoing left facial nasolabial weakness, tongue deviate to right Extremities no hargrove edema Vitals Ranges: Temp: [35.7 C (96.3 F)-36.4 C (97.5 F)] 36 C (96.8 F) Pulse: [70-79] 72 Resp: [16-20] 18 BP: (134-140)/(72-86) 140/82 Vitals: Temp: 36 C (96.8 F) BP: 140/82 Pulse: 72 Resp: 18 SpO2: 94 % SpO2 94 % on room air at flow rate L/min Objective Data Point of care glucose Recent Labs Lab 04/10/19 0702 04/09/19 19504/08/194 04/08/19 1156 04/08/19 0625 04/07/19 2111 POCGLU 135* 112* 90 108 96 127* Labs last 24 hours Recent Results (from the past 24 hour(s)) POC Glucose Collection Time: 04/09/19 19:51 Result Value Ref Range Glucose, POC 112 (H) 70 - 109 mg/dL POC Glucose Collection Time: 04/10/19 7:02 Result Value Ref Range Glucose, POC 135 (H) 70 - 109 mg/dL Micro results Microbiology Results (72 hrs) Procedure Component Value Units Date/Time Culture, Blood [[id number]] Collected: 04/07/192153 Order Status: Completed Lab Status: Preliminary result Updated: 04/08/19 1301 Specimen: Peripheral Blood Culture No growth: Monitored continually by instrument for 5 days Culture, Blood [[id number]] Collected: 04/07/192151 Order Status: Completed Lab Status: Preliminary result Updated: 04/08/19 1301 Specimen: Peripheral Blood Culture No growth: Monitored continually by instrument for [address] Head Wo Contrast Result Date: 04/08/[address] 04/08/2019 2:44 PM CLINICAL HISTORY: evaluate right sided CVA (improvin g left sided weakness started 3 days ago), evaluate sinusitis COMPARISON: CTA April 05 and more remote imaging TECHNIQUE: Axial unenhanced images are performed through the head, along with coronal and sagittal reformations. FINDINGS: Mild cerebral atrophy and minimal hypoattenuation of the periventricular white matter persist. Leo-white differentiation is maintained. A small rounded hypodensity in the left thalamus and tiny hypodensities elsewhe re in the basal ganglia are long-term stable and consistent with chronic lacunar infarcts. The ventricles, brainstem and cerebellum are unremarkable. There is no mass effect, evidence of recent intracranial hemorrhage or extra-axial fluid collection. Calcified plaque is pre sent in the terminal internal carotid arteries. Pharyngeal lymphoid hypertrophy is again sug gested, with asymmetric partial effacement of the right vallecula. Near complete opacificat ion of the right maxillary sinus is minimally improved from imaging of April 05. Mucous mem brane thickening persists within bilateral ethmoid air cells, and mildly involves the left m axillary sinus as well. Mild mucous membrane thickening is now evident within the frontal s inuses and anterior aspects of the sphenoid sinuses. Periapical lucency involving the resid ual eroded appearing maxillary teeth is again apparent, along with potential communication w ith the floor of the right maxillary sinus. The middle ear cavities and mastoid air cells a re well aerated. Incomplete fusion of the posterior arch of C1 is again evident. IMPRESSIO N - 1. NO EVIDENCE OF EVOLVING ISCHEMIA OR OTHER ACUTE INTRACRANIAL DISEASE. 2. SIMILAR M ILD ATROPHY WITH PROBABLE CHRONIC, MICROVASCULAR ISCHEMIC CHANGE OF THE PERIVENTRICULAR WHIT E MATTER AND CHRONIC LACUNAR INFARCTS IN THE LEFT THALAMUS AND BASAL GANGLIA, IN THE SETTING OF VASCULAR CALCIFICATION. 3. SLIGHT IMPROVEMENT IN RIGHT MAXILLARY SINUS OPACIFICATION WI TH PERSISTENT ETHMOID SINUS DISEASE AND INCREASED MILD PARANASAL SINUS DISEASE OTHERWISE DESCRIBED. PERIAPICAL LUCENCIES INVOLVING RESIDUAL ERODED MAXILLARY TEETH ARE AGAIN NOTED, AND POTENTIAL COMMUNICATION WITH THE RIGHT MAXILLARY SINUS IS AGAIN SUGGESTED. Dictated and Signed by: Rajeev Lewis MD Electronically signed: 04/08/2019 3:22 PM Current Medications: Current Facility-Administered Medications Medication Dose Route Frequency Provider Last Rate Last Dose acetaminophen (TYLENOL) tablet 650 mg 650 mg Oral Q4H PRN Matthew Davies MD 650 mg at 04/09/19 0031 adult multivitamin with minerals/iron tablet 1 tablet 1 tablet Oral Daily Matthew Davies MD 1 tablet at 04/10/19 0835 albuterol-ipratropium 2.5-0.5 mg/3 mL nebulizer solution 3 mL 3 mL Nebulization RT BID Matthew Davies MD 3 mL at 04/10/19 0748 amoxicillin-clavulanate (AUGMENTIN) 875-125 mg per tablet 1 tablet 1 tablet Oral BID Madelin Davies MD 1 tablet at 04/10/19 0835 aspirin EC tablet 325 mg 325 mg Oral Daily Matthew Davies MD 325 mg at 04/10/19 0835 atorvaSTATin (LIPITOR) tablet 80 mg 80 mg Oral Daily Matthew Davies MD 80 mg at 0835 enoxaparin (LOVENOX) 40 mg/0.4 mL injection 40 mg 40 mg Subcutaneous Daily Matthew Davies MD 40 mg at 04/10/19 0835 famotidine (PEPCID) tablet 20 mg 20 mg Oral BID Matthew Davies MD 20 mg at 04/10/19 08 35 folic acid tablet 1 mg 1 mg Oral Daily Matthew Davies MD 1 mg at 04/10/19 0835 lisinopril (PRINIVIL, ZESTRIL) tablet 10 mg 10 mg Oral Daily Matthew Davies MD 10 mg a t 04/10/19 0835 LORazepam (ATIVAN) injection 1-4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 4.02 cm LVPW Systolic Thickness MM 1.24 cm AV Cusp Seperation MM 2.96 cm LA Systolic Diameter MM 4.5 cm TAPSE 2.2 cm LVEF-TTE TRANSTHORACIC ECHO 55 % RA PRESSURE 15 mmHg POC Glucose Collection Time: 04/06/19 11:36 Result Value Ref Range Glucose, POC 175 (H) 70 - 109 mg/dL POC Glucose Collection Time: 04/06/19 17:01 Result Value Ref Range Glucose, POC 145 (H) 70 - 109 mg/dL POC Glucose Collection Time: 04/06/19 20:37 Result Value Ref Range Glucose, POC 138 (H) 70 - 109 mg/dL POC Glucose Collection Time: 04/07/19 7:05 Result Value Ref Range Glucose, POC 140 (H) 70 - 109 mg/dL Micro results Microbiology Results (72 hrs) Procedure Component Value Units Date/Time Culture, MRSA [[id number]] Collected: 04/06/19 0243 Order Status: Completed Lab Status: Final result Updated: 04/07/19 0659 Specimen: Tissue from Nares Culture Negative for MRSA by chromogenic agar method 3+ Coagulase positive Staphylococcus Radiology results Ct Angiogram Head Neck Acute Stroke Result Date: 04/05/2019 CT ANGIOGRAM HEAD NECK ACUTE STROKE 04/05/2019 8:48 PM HISTORY: stroke. COMPARISON: 7 PROTOCOL: Axial CT images of the head were obtained precontrast. Thin section axial CTA im ages of the head and neck were acquired after 105 mL Omnipaque 350. Coronal and sagittal ref ormations were obtained. HEAD FINDINGS: BRAIN: No areas of increased attenuation to suggest intracranial hemorrhage. There is no mass, mass effect, or midline shift. There are no abn ormal extra-axial fluid or air collections. There is preservation of the leo-white differe ntiation at this time. Ventricles, sulci and cisterns are unremarkable for age. There is no significant white matter disease. Remote appearing infarct is seen in the left basal gangli a/thalamus. SCALP/ CALVARIUM: The scalp and skull are intact and are unremarkable. SINUSES / ORBITS/ MASTOIDS: Severe mucosal inflammatory disease involving the ethmoid air cells and r ight maxillary sinus. Mastoid air cells are patent. The globes and retroconal contents are i ntact and without evidence of acute abnormality. CTA HEAD FINDINGS: Right Carotid: The stella us, cavernous, and supraclinoid segments are patent. There is normal branching of the MCA an d SAUMYA. Left Carotid: The petrous, cavernous, and supraclinoid segments are patent. There is normal branching of the MCA and SAUMYA. 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 No evidence of dissection or occlusion. CTA NECK FINDINGS: Aorta and Branches: The aorta and proximal b ranches are patent. Right Carotid: The common, internal, and external carotid arteries are p atent with no significant stenosis. Left Carotid: The common, internal, and external carotid arteries are patent with no significant stenosis. Vertebrals: The bilateral vertebral arter ies are patent. The nasopharynx, oropharynx, epiglottis, hypopharynx, and larynx are normal. Multiple severe/large periapical root abscesses. One of the periapical root abscesses is se en to erode through the floor of the right maxillary sinus and may be a cause for the severe right-sided maxillary sinus disease. Extensive dental caries. The parapharyngeal, retrophar yngeal, and college specialist spaces are normal. The parotid glands and submandibular glands are no rmal. The thyroid is unremarkable. No enlarged lymph nodes are visualized of the neck. There are no acute osseous abnormalities. The upper chest shows no acute findings. IMPRESSION - N o acute intracranial abnormality identified. Negative CTA of the head and neck or any acute occlusion or dissection. Small 3.1 mm saccular aneurysm is seen at the origin of the left PI CA from the left V4 segment . Multiple severe/large periapical root abscesses. One of the pe riapical root abscesses is seen to erode through the floor of the right maxillary sinus and may be a cause for the severe right-sided maxillary sinus and ethmoid air cell mucosal thick ening/inflammatory changes. Dictated and Signed by: Lennox Dejesus MD Electronically signed : 04/05/2019 9:13 PM Current Medications: Current Facility-Administered Medications Medication Dose Route Frequency Provider Last Rate Last Dose acetaminophen (TYLENOL) tablet 650 mg 650 mg Oral Q4H PRN Matthew Davies MD adult multivitamin with minerals/iron tablet 1 tablet 1 tablet Oral Daily Matthew Davies MD 1 tablet at 04/06/19 0831 aspirin EC tablet 325 mg 325 mg Oral Daily Matthew Davies MD 325 mg at 04/06/19 0307 atorvaSTATin (LIPITOR) tablet 80 mg 80 mg Oral Daily Matthew Davies MD 80 mg at 0831 enoxaparin (LOVENOX) 40 mg/0.4 mL injection 40 mg 40 mg Subcutaneous Daily Matthew Davies MD 40 mg at 04/06/19 0831 famotidine (PEPCID) tablet 20 mg 20 mg Oral BID Matthew Davies MD 20 mg at 04/06/19 20 36 folic acid tablet 1 mg 1 mg Oral Daily Matthew Davies MD LORazepam (ATIVAN) injection 1-4 mg 1-4 mg Intravenous PRN Matthew Davies MD polyethylene glycol (MIRALAX) powder 17 g 17 g Oral Daily PRN Matthew Davies MD thiamine (VITAMIN B-1) tablet 100 mg 100 mg Oral Daily Matthew Davies MD Current Infusions: Matthew Davies MD 04/07/2019 7:42 [facility] Suad Conway RN - 10:29 PM PDTArrived to 331 at approx 2120. SBA w/transfer from w/c to bed, cued f or safety precautions. Pleasant and cooperative. Requesting snack items-given. Pt currently sleeping Matthew Petersen M D - 04/06/2019 10:15 AM PDT [facility] HOSPITALIST PROGRESS NOTE Patient: Dannie Win : 1960: Age: 58 y.o. MedRec: [id number] Admission date: 04/05/2019 Hospital day # : 0 Physician author: Matthew Davies MD Today: 04/06/2019 Reason for hospitalization Left sided facial droop, slurred speech and unable to move or feel left sided extremities, and hypertensive Meth + Assessment and Plan Active Hospital Problems Diagnosis Stroke (cerebrum) Resolved Hospital Problems No resolved problems to display. 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 Subjective by date drowsy Treatment log Off nicardipine 2100 04/05 Exam On room air General NAD easily awakened watns ice cream Cardiac S1 S2 RRR 2+ radial pulse Lung CTAB Abdominal soft nt nd + BS Neuro no dysarthria, adentulous, 4/5 left upper/lower extremity, 5/5 right lower/upper extr emity strengths CN2-12 grossly symmetrical intact, no overt left facial droop Extremities no hargrove edema Vitals Ranges: Temp: [36.1 C (97 F)-37 C (98.6 F)] 36.1 C (97 F) Pulse: [63-107] 67 Resp: [14-20] 16 BP: (154-192)/(89-115) 154/93 Vitals: Temp: 36.1 C (97 F) BP: (!) 154/93 Pulse: 67 Resp: 16 SpO2: 94 % SpO2 94 % on room air at flow rate L/min Objective Data Point of care glucose Recent Labs Lab 04/05/192103 POCGLU 151* Labs last 24 hours Recent Results (from the past 24 hour(s)) POC Glucose Collection Time: 04/05/19 21:04 Result Value Ref Range Glucose, POC 151 (H) 70 - 109 mg/dL ECG 12 lead Collection Time: 04/05/19 21:06 Result Value Ref Range INTERPRETATION TEXT Not Confirmed CBC with Differential Collection Time: 04/05/19 21:13 Result Value Ref Range WBC 5.6 4.0 - 11.0 K/uL RBC 3.55 (L) 4.30 - 5.70 M/uL Hemoglobin 11.0 (L) 13.5 - 18.0 g/dL Hematocrit 33.7 (L) 40.0 - 51.0 % MCV 94.9 83.0 - 101.0 fL MCH 31.0 28.0 - 35.0 pg MCHC 32.6 32.0 - 36.0 g/dL RDW-CV 12.1 <15.0 % RDW-SD 42.4 35.1 - 46.3 fL Platelet Count 143 140 - 440 K/uL MPV 10.8 6.5 - 12.4 fL % Neutrophils 53.6 45.0 - 82.0 % % Lymphocytes 27.9 20.0 - 45.0 % % Monocytes 14.3 (H) 4.0 - 12.0 % % Eosinophils 3.4 0.0 - 5.0 % % Basophils 0.4 0.0 - 1.0 % % Immature Granulocytes 0.4 0.0 - 0.4 % Absolute Neutrophils 3.01 1.80 - 8.50 K/uL Absolute Lymphocytes 1.56 0.60 - 3.20 K/uL Absolute Monocytes 0.80 0.00 - 1.00 K/uL Absolute Eosinophils 0.19 0.00 - 0.40 K/uL Absolute Basophils 0.02 0.00 - 0.10 K/uL Absolute Immature Granulocytes 0.02 0.00 - 0.03 K/uL % nRBC 0 0 - 2 per 100 WBCs Absolute nRBC 0.00 0.00 - 0.01 K/uL Comprehensive Metabolic Panel Collection Time: 04/05/19 21:13 Result Value Ref Range Na 135 (L) 136 - 145 mmol/L K 3.5 3.4 - 5.1 mmol/L Cl 104 98 - 107 mmol/L CO2 28 20 - 31 mmol/L Anion Gap 3 3 - 16 mmol/L Glucose 91 60 - 106 mg/dL BUN 10 9 - 23 mg/dL Creatinine 0.97 0.70 - 1.30 mg/dL eGFR if not >60 >=60 mL/min/1.73m2 Ca 8.4 (L) 8.7 - 10.4 mg/dL Albumin 3.3 3.2 - 4.8 g/dL Bilirubin Total 0.4 0.3 - 1.2 mg/dL Total Protein 5.2 (L) 5.7 - 8.2 g/dL AST 22 0 - 34 U/L ALT 31 10 - 49 U/L Alkaline Phosphatase 85 46 - 116 U/L Globulin 1.9 (L) 2.1 - 3.8 g/dL Albumin/Globulin Ratio 1.7 0.8 - 1.9 BUN/Creatinine Ratio 10.3 Troponin I Collection Time: 04/05/19 21:13 Result Value Ref Range Troponin I 0.01 <0.06 ng/mL B Type Natriuretic Peptide Collection Time: 04/05/19 21:13 Result Value Ref Range BNP 90 <100 pg/mL Protime INR Collection Time: 04/05/19 21:13 Result Value Ref Range Prothrombin Time 13.0 11.3 - 13.9 seconds INR 1.0 0.9 - 1.1 Ethanol Collection Time: 04/05/19 21:13 Result Value Ref Range ALCOHOL, SERUM/PLASMA 7 (H) <=6 mg/dL TSH Collection Time: 04/05/19 21:13 Result Value Ref Range TSH 0.64 0.55 - 4.78 uIU/mL Magnesium Collection Time: 04/05/19 21:13 Result Value Ref Range Magnesium 1.7 1.6 - 2.6 mg/dL Type and Screen Collection Time: 04/05/19 21:25 Result Value Ref Range ABO O Rh Type Positive Antibody Screen Negative Urinalysis with Microscopic with Culture if Indicated Collection Time: 04/05/19 21:26 Result Value Ref Range Color Straw Light Yellow, Yellow, Straw Clarity Clear Clear pH, Urine 6.0 5.0 - 8.0 Specific [place] 1.018 1.001 - 1.030 Protein, Urine Negative Negative Blood, Urine Negative Negative Glucose, Urine Negative Negative Ketones, Urine Negative Negative Bilirubin, Urine Negative Negative Nitrite, Urine Negative Negative Leukocyte Esterase, Urine Negative Negative Urobilinogen, Urine Negative 0.2 mg/dL, 1.0 mg/dL, Negative WBC UA 0-2 0 - 2 /HPF RBC UA 0-2 0 - 2 /HPF SQUAMOUS EPITHELIAL UA 0-2 0 - 2 /LPF BACTERIA UA Negative Negative /HPF URINE COMMENT Urine Culture Not Indicated Drugs of Abuse, Screen, Urine Collection Time: 04/05/19 21:26 Result Value Ref Range Amphetamine Screen, Urine Positive (A) Negative Barbiturates Screen, Urine Negative Negative Benzodiazepines Screen, Urine Negative Negative Cannabinoids Screen, Urine Negative Negative Cocaine Screen, Urine Negative Negative Methadone Screen, Urine Negative Negative Opiates Screen, Urine Negative Negative HIV Type 1 and 2 Ab Screen, Rapid Collection Time: 04/05/19 21:49 Result Value Ref Range HIV 1 and 2 Ab, Rapid Non-Reactive Non-Reactive HIV-1 P24 Ag Non-Reactive Non-Reactive Comprehensive Metabolic Panel Collection Time: 04/06/19 5:13 Result Value Ref Range Na 138 136 - 145 mmol/L K 3.4 3.4 - 5.1 mmol/L Cl 102 98 - 107 mmol/L CO2 31 20 - 31 mmol/L Anion Gap 5 3 - 16 mmol/L Glucose 140 (H) 60 - 106 mg/dL BUN 7 (L) 9 - 23 mg/dL Creatinine 0.94 0.70 - 1.30 mg/dL eGFR if not >60 >=60 mL/min/1.73m2 Ca 9.1 8.7 - 10.4 mg/dL Albumin 3.8 3.2 - 4.8 g/dL Bilirubin Total 0.4 0.3 - 1.2 mg/dL Total Protein 6.0 5.7 - 8.2 g/dL AST 22 0 - 34 U/L ALT 32 10 - 49 U/L Alkaline Phosphatase 97 46 - 116 U/L Globulin 2.2 2.1 - 3.8 g/dL Albumin/Globulin Ratio 1.7 0.8 - 1.9 BUN/Creatinine Ratio 7.4 Hemoglobin A1C Collection Time: 04/06/19 5:13 Result Value Ref Range Hemoglobin A1c 5.0 4.3 - 6.0 % Estimated Average Glucose 97 mg/dL Magnesium Collection Time: 04/06/19 5:13 Result Value Ref Range Magnesium 1.8 1.6 - 2.6 mg/dL Phosphorus Collection Time: 04/06/19 5:13 Result Value Ref Range Phosphorus 3.5 2.4 - 5.1 mg/dL Lipid Panel Collection Time: 04/06/19 5:13 Result Value Ref Range Triglycerides 78 <=150 mg/dL Cholesterol 105 <=200 mg/dL HDL 41 40 - 60 mg/dL Chol/HDL Ratio 2.6 LDL, Calculated 48 <=130 mg/dL CBC with Differential Collection Time: 04/06/19 5:14 Result Value Ref Range WBC 7.1 4.0 - 11.0 K/uL RBC 4.06 (L) 4.30 - 5.70 M/uL Hemoglobin 12.4 (L) 13.5 - 18.0 g/dL Hematocrit 38.4 (L) 40.0 - 51.0 % MCV 94.6 83.0 - 101.0 fL MCH 30.5 28.0 - 35.0 pg MCHC 32.3 32.0 - 36.0 g/dL RDW-CV 12.4 <15.0 % RDW-SD 42.8 35.1 - 46.3 fL Platelet Count 158 140 - 440 K/uL MPV 11.3 6.5 - 12.4 fL % Neutrophils 62.6 45.0 - 82.0 % % Lymphocytes 21.8 20.0 - 45.0 % % Monocytes 12.3 (H) 4.0 - 12.0 % % Eosinophils 2.6 0.0 - 5.0 % % Basophils 0.4 0.0 - 1.0 % % Immature Granulocytes 0.3 0.0 - 0.4 % Absolute Neutrophils 4.41 1.80 - 8.50 K/uL Absolute Lymphocytes 1.54 0.60 - 3.20 K/uL Absolute Monocytes 0.87 0.00 - 1.00 K/uL Absolute Eosinophils 0.18 0.00 - 0.40 K/uL Absolute Basophils 0.03 0.00 - 0.10 K/uL Absolute Immature Granulocytes 0.02 0.00 - 0.03 K/uL % nRBC 0 0 - 2 per 100 WBCs Absolute nRBC 0.00 0.00 - 0.01 K/uL Micro results Microbiology Results (72 hrs) Procedure Component Value Units Date/Time Culture, MRSA [[id number]] Collected: 04/06/19242 Order Status: Sent Lab Status: In process Updated: 04/06/19258 Specimen: Tissue from Nares Radiology results Ct Angiogram Head Neck Acute Stroke Result Date: 04/05/2019 CT ANGIOGRAM HEAD NECK ACUTE STROKE 04/05/2019 8:48 PM HISTORY: stroke. COMPARISON: 7 PROTOCOL: Axial CT images of the head were obtained precontrast. Thin section axial CTA im ages of the head and neck were acquired after 105 mL Omnipaque 350. Coronal and sagittal ref ormations were obtained. HEAD FINDINGS: BRAIN: No areas of increased attenuation to suggest intracranial hemorrhage. There is no mass, mass effect, or midline shift. There are no abn ormal extra-axial fluid or air collections. There is preservation of the elo-white differe ntiation at this time. Ventricles, sulci and cisterns are unremarkable for age. There is no significant white matter disease. Remote appearing infarct is seen in the left basal gangli a/thalamus. SCALP/ CALVARIUM: The scalp and skull are intact and are unremarkable. SINUSES / ORBITS/ MASTOIDS: Severe mucosal inflammatory disease involving the ethmoid air cells and r ight maxillary sinus. Mastoid air cells are patent. The globes and retroconal contents are i ntact and without evidence of acute abnormality. CTA HEAD FINDINGS: Right Carotid: The stelal us, cavernous, and supraclinoid segments are patent. There is normal branching of the MCA an d SAUMYA. Left Carotid: The petrous, cavernous, and supraclinoid segments are patent. There is normal branching of the MCA and SAUMYA. 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 No evidence of dissection or occlusion. CTA NECK FINDINGS: Aorta and Branches: The aorta and proximal b ranches are patent. Right Carotid: The common, internal, and external carotid arteries are p atent with no significant stenosis. Left Carotid: The common, internal, and external carotid arteries are patent with no significant stenosis. Vertebrals: The bilateral vertebral arter ies are patent. The nasopharynx, oropharynx, epiglottis, hypopharynx, and larynx are normal. Multiple severe/large periapical root abscesses. One of the periapical root abscesses is se en to erode through the floor of the right maxillary sinus and may be a cause for the severe right-sided maxillary sinus disease. Extensive dental caries. The parapharyngeal, retrophar yngeal, and college specialist spaces are normal. The parotid glands and submandibular glands are no rmal. The thyroid is unremarkable. No enlarged lymph nodes are visualized of the neck. There are no acute osseous abnormalities. The upper chest shows no acute findings. IMPRESSION - N o acute intracranial abnormality identified. Negative CTA of the head and neck or any acute occlusion or dissection. Small 3.1 mm saccular aneurysm is seen at the origin of the left PI CA from the left V4 segment . Multiple severe/large periapical root abscesses. One of the pe riapical root abscesses is seen to erode through the floor of the right maxillary sinus and may be a cause for the severe right-sided maxillary sinus and ethmoid air cell mucosal thick ening/inflammatory changes. Dictated and Signed by: Lennox Dejesus MD Electronically signed : 04/05/2019 9:13 PM Current Medications: Current Facility-Administered Medications Medication Dose Route Frequency Provider Last Rate Last Dose acetaminophen (TYLENOL) 160 mg/5 mL liquid 650 mg 650 mg Per NG tube Q4H PRN Rachna perera MD Or acetaminophen (TYLENOL) tablet 650 mg 650 mg Oral Q4H PRN Rachna Retana MD Or acetaminophen (TYLENOL) suppository 650 mg 650 mg Rectal Q4H PRN Rachna Retana MD adult multivitamin with minerals/iron tablet 1 tablet 1 tablet Oral Daily Rachna ramires MD 1 tablet at 04/06/19830 aspirin EC tablet 325 mg 325 mg Oral Daily Rachna Retana MD 325 mg at 04/06/19 0307 Or aspirin suppository 300 mg 300 mg Rectal Daily Rachna Retana MD atorvaSTATin (LIPITOR) tablet 80 mg 80 mg Oral Daily Rachna Retana MD 80 mg at 03/2431 bisacodyl (DULCOLAX) suppository 10 mg 10 mg Rectal Daily PRN Rachna Retana MD docusate sodium (COLACE) capsule 100 mg 100 mg Oral BID PRN Rachna Retana MD enoxaparin (LOVENOX) 40 mg/0.4 mL injection 40 mg 40 mg Subcutaneous Daily Rachna stark MD 40 mg at 04/06/1931 famotidine (PEPCID) tablet 20 mg 20 mg Oral BID Rachna Retana MD 20 mg at 04/06/19 0831 Or famotidine (PEPCID) injection 20 mg 20 mg Intravenous BID Rachna Retana MD folic acid 1 mg, thiamine (VITAMIN B-1) 100 mg in sodium chloride 0.9% 50 mL IVPB 1 mg Intravenous Daily Rachna Retana MD 102.4 mL/hr at 04/06/19918 1 mg at 04/06/19918 LORazepam (ATIVAN) injection 1-4 mg 1-4 mg Intravenous PRN Rachna Retana MD niCARdipine in saline (CARDENE) 0.2 mg/mL infusion 0-15 mg/hr Intravenous Titrated Noemy Retana MD Stopped at 04/05/192299 ondansetron (ZOFRAN) injection 4 mg 4 mg Intravenous Q6H PRN Rachna Retana MD polyethylene glycol (MIRALAX) powder 17 g 17 g Oral Daily PRN Rachna Retana MD senna (SENOKOT) tablet 8.6 mg 8.6 mg Oral BID PRN Rachna Retana MD Current Infusions: niCARdipine Stopped (04/05/192299) Matthew Davies MD 04/06/2019 10:16 [facility] documented in this encou nter Plan of Treatment Not on filedocumented as of this encounter Procedures + +--------+ + + + | Procedure Name | Priori | Date/Time | Associated Diagnosis | Comments | | | ty | | | | + +--------+ + + + | POC GLUCOSE | Routin | 04/10/2019 | | Results for this | | | e | 7:02 AM | | procedure are in the | | | | PDT | | results section. | + +--------+ + + + | POC GLUCOSE | Routin | 04/09/2019 | | Results for this | | | e | 7:51 PM | | procedure are in the | | | | PDT | | results section. | + +--------+ + + + | CBC NO DIFFERENTIAL | Routin | 04/09/2019 | | Results for this | | | e | 5:38 AM | | procedure are in the | | | | PDT | | results section. | + +--------+ + + + | BASIC METABOLIC | Routin | 04/09/2019 | | Results for this | | PANEL | e | 5:38 AM | | procedure are in the | | | | PDT | | results section. | + +--------+ + + + | POC GLUCOSE | Routin | 04/08/2019 | | Results for this | | | e | 8:24 PM | | procedure are in the | | | | PDT | | results section. | + +--------+ + + + | CT HEAD WO CONTRAST | Routin | 04/08/2019 | | Results for this | | | e | 2:45 PM | | procedure are in the | | | | PDT | | results section. | + +--------+ + + + | POC GLUCOSE | Routin | 04/08/2019 | | Results for this | | | e | 11:56 AM | | procedure are in the | | | | PDT | | results section. | + +--------+ + + + | POC GLUCOSE | Routin | 04/08/2019 | | Results for this | | | e | 6:25 AM | | procedure are in the | | | | PDT | | results section. | + +--------+ + + + | URINALYSIS WITH | Routin | 04/07/2019 | | Results for this | | MICROSCOPIC WITH | e | 11:25 PM | | procedure are in the | | CULTURE IF INDICATED | | PDT | | results section. | + +--------+ + + + | CULTURE, BLOOD | STAT | 04/07/2019 | | Results for this | | | | 9:54 PM | | procedure are in the | | | | PDT | | results section. | + +--------+ + + + | CULTURE, BLOOD | STAT | 04/07/2019 | | Results for this | | | | 9:52 PM | | procedure are in the | | | | PDT | | results section. | + +--------+ + + + | XR CHEST AP PORTABLE | STAT | 04/07/2019 | | Results for this | | | | 9:41 PM | | procedure are in the | | | | PDT | | results section. | + +--------+ + + + | POC GLUCOSE | Routin | 04/07/2019 | | Results for this | | | e | 9:11 PM | | procedure are in the | | | | PDT | | results section. | + +--------+ + + + | POC GLUCOSE | Routin | 04/07/2019 | | Results for this | | | e | 4:37 PM | | procedure are in the | | | | PDT | | results section. | + +--------+ + + + | POC GLUCOSE | Routin | 04/07/2019 | | Results for this | | | e | 11:43 AM | | procedure are in the | | | | PDT | | results section. | + +--------+ + + + | POC GLUCOSE | Routin | 04/07/2019 | | Results for this | | | e | 7:05 AM | | procedure are in the | | | | PDT | | results section. | + +--------+ + + + | POC GLUCOSE | Routin | 04/06/2019 | | Results for this | | | e | 8:37 PM | | procedure are in the | | | | PDT | | results section. | + +--------+ + + + | POC GLUCOSE | Routin | 04/06/2019 | | Results for this | | | e | 5:01 PM | | procedure are in the | | | | PDT | | results section. | + +--------+ + + + | POC GLUCOSE | Routin | 04/06/2019 | | Results for this | | | e | 11:36 AM | | procedure are in the | | | | PDT | | results section. | + +--------+ + + + | ECHO COMPLETE | Routin | 04/06/2019 | | Results for this | | | e | 9:33 AM | | procedure are in the | | | | PDT | | results section. | + +--------+ + + + | CBC WITH | Routin | 04/06/2019 | | Results for this | | DIFFERENTIAL | e | 5:14 AM | | procedure are in the | | | | PDT | | results section. | + +--------+ + + + | LIPID PANEL | Routin | 04/06/2019 | | Results for this | | | e | 5:13 AM | | procedure are in the | | | | PDT | | results section. | + +--------+ + + + | PHOSPHORUS | Routin | 04/06/2019 | | Results for this | | | e | 5:13 AM | | procedure are in the | | | | PDT | | results section. | + +--------+ + + + | MAGNESIUM | Routin | 04/06/2019 | | Results for this | | | e | 5:13 AM | | procedure are in the | | | | PDT | | results section. | + +--------+ + + + | HEMOGLOBIN A1C | Routin | 04/06/2019 | | Results for this | | | e | 5:13 AM | | procedure are in the | | | | PDT | | results section. | + +--------+ + + + | COMPREHENSIVE | Routin | 04/06/2019 | | Results for this | | METABOLIC PANEL | e | 5:13 AM | | procedure are in the | | | | PDT | | results section. | + +--------+ + + + | CULTURE, MRSA | Routin | 04/06/2019 | | Results for this | | | e | 2:43 AM | | procedure are in the | | | | PDT | | results section. | + +--------+ + + + | HEPATITIS PANEL, | STAT | 04/05/2019 | | Results for this | | ACUTE | | 9:50 PM | | procedure are in the | | | | PDT | | results section. | + +--------+ + + + | HIV TYPE 1 AND 2 AB | STAT | 04/05/2019 | | Results for this | | SCREEN, RAPID | | 9:49 PM | | procedure are in the | | | | PDT | | results section. | + +--------+ + + + | URINALYSIS WITH | STAT | 04/05/2019 | | Results for this | | MICROSCOPIC WITH | | 9:26 PM | | procedure are in the | | CULTURE IF INDICATED | | PDT | | results section. | + +--------+ + + + | DRUGS OF ABUSE, | STAT | 04/05/2019 | | Results for this | | SCREEN, URINE | | 9:26 PM | | procedure are in the | | | | PDT | | results section. | + +--------+ + + + | TYPE AND SCREEN | STAT | 04/05/2019 | | Results for this | | | | 9:25 PM | | procedure are in the | | | | PDT | | results section. | + +--------+ + + + | TROPONIN I | STAT | 04/05/2019 | | Results for this | | | | 9:13 PM | | procedure are in the | | | | PDT | | results section. | + +--------+ + + + | PROTIME INR | STAT | 04/05/2019 | | Results for this | | | | 9:13 PM | | procedure are in the | | | | PDT | | results section. | + +--------+ + + + | CBC WITH | STAT | 04/05/2019 | | Results for this | | DIFFERENTIAL | | 9:13 PM | | procedure are in the | | | | PDT | | results section. | + +--------+ + + + | TSH | STAT | 04/05/2019 | | Results for this | | | | 9:13 PM | | procedure are in the | | | | PDT | | results section. | + +--------+ + + + | B TYPE NATRIURETIC | STAT | 04/05/2019 | | Results for this | | PEPTIDE | | 9:13 PM | | procedure are in the | | | | PDT | | results section. | + +--------+ + + + | MAGNESIUM | STAT | 04/05/2019 | | Results for this | | | | 9:13 PM | | procedure are in the | | | | PDT | | results section. | + +--------+ + + + | ALCOHOL | STAT | 04/05/2019 | | Results for this | | | | 9:13 PM | | procedure are in the | | | | PDT | | results section. | + +--------+ + + + | COMPREHENSIVE | STAT | 04/05/2019 | | Results for this | | METABOLIC PANEL | | 9:13 PM | | procedure are in the | | | | PDT | | results section. | + +--------+ + + + | ECG 12 LEAD | STAT | 04/05/2019 | | Results for this | | | | 9:07 PM | | procedure are in the | | | | PDT | | results section. | + +--------+ + + + | POC GLUCOSE | Routin | 04/05/2019 | | Results for this | | | e | 9:04 PM | | procedure are in the | | | | PDT | | results section. | + +--------+ + + + | CT ANGIOGRAM HEAD | STAT | 04/05/2019 | | Results for this | | NECK ACUTE STROKE | | 8:59 PM | | procedure are in the | | | | PDT | | results section. | + +--------+ + + + documented in this encounter Results POC Glucose (04/10/2019 7:02 AM PDT) + +---------+ + + + | Component | Value | Ref Range | Performed | Pathologist | | | | | At | Signature | + +---------+ + + + | Glucose, | 135 (H) | 70 - 109 mg/dL | [facility] | | | P[facility] | | | [facility] | | | | | | [facility] | | | | | | CENTER - | | | | | | LABORATORY | | + +---------+ + + + + + | Specimen | + + | Blood | + + + + + + + | Performing | Address | City/State/Zipcode | Phone Number | | Organization | | | | + + + + + | [facility] | [address] | [place] | [phone] | | [facility] | | [address] | | | - LABORATORY | | | | + + + + + POC Glucose (04/09/2019 7:51 PM PDT) + +---------+ + + + | Component | Value | Ref Range | Performed | Pathologist | | | | | At | Signature | + +---------+ + + + | Glucose, | 112 (H) | 70 - 109 mg/dL | [facility] | | | POC | | | [facility] | | | | | | MED[facility] | | | | | | CENTER - | | | | | | LABORATORY | | + +---------+ + + + + + | Specimen | + + | Blood | + + + + + + + | Performing | Address | City/State/Zipcode | Phone Number | | Organization | | | | + + + + + | [facility] | [address] | [place] | [phone] | | [facility] | | [address] | | | - LABORATORY | | | | + + + + + Basic Metabolic Panel (04/09/2019 5:38 AM PDT) + + + + + + | Component | Value | Ref Range | Performed | Pathologist | | | | | At | Signature | + + + + + + | Na | 139 | 136 - 145 | [facility] | | | | | mmol/L | [facility] | | | | | | MEDICAL | | | | | | CENTER - | | | | | | LABORATORY | | + + + + + + | K | 4.0 | 3.4 - 5.1 | [facility] | | | | | mmol/L | [facility] | | | | | | MEDICAL | | | | | | CENTER - | | | | | | LABORATORY | | + + + + + + | Cl | 102 | 98 - 107 mmol/L | [facility] | | | | | | [facility] | | | | | | MEDICAL | | | | | | CENTER - | | | | | | LABORATORY | | + + + + + + | CO2 | 32 (H) | 20 - 31 mmol/L | [facility] | | | | | | [facility] | | | | | | MEDICAL | | | | | | CENTER - | | | | | | LABORATORY | | + + + + + + | Anion Gap | 5 | 3 - 16 mmol/L | [facility] | | | | | | [facility] | | | | | | MEDICAL | | | | | | CENTER - | | | | | | LABORATORY | | + + + + + + | Glucose | 98 | 60 - 106 mg/dL | [facility] | | | | | | [facility] | | | | | | MEDICAL | | | | | | CENTER - | | | | | | LABORATORY | | + + + + + + | BUN | 12 | 9 - 23 mg/dL | [facility] | | | | | | [facility] | | | | | | MEDICAL | | | | | | CENTER - | | | | | | LABORATORY | | + + + + + + | Creatinine | 0.98 | 0.70 - 1.30 | [facility] | | | | | mg/dL | [facility] | | | | | | MEDICAL | | | | | | CENTER - | | | | | | LABORATORY | | + + + + + + | eGFR if not | >60Comment: GLOMERULAR | >=60 | [facility] | | | | FILTRATION | mL/min/1.73m2 | [facility] | | | TURKISH | RATE,ESTIMATED | | MEDICAL | | | | mL/min/1.67o4Anqa than | | CENTER - | | [...] + + + + | Calcium | 8.7 | 8.7 - 10.4 | [facility] | | | | | mg/dL | [facility] | | | | | | MEDICAL | | | | | | CENTER - | | | | | | LABORATORY | | + + + + + + | BUN/Creatin | 12.2 | | [facility] | | | ine Ratio | | | [facility] | | | | | | MEDICAL [...] + | [facility] | [address] | [place] | [phone] | | [facility] | | [address] | | | - LABORATORY | | | | + + + + + CBC no Differential (04/09/2019 5:38 AM PDT) + +-------+ + + + | Component | Value | Ref Range | Performed | Pathologist | | | | | At | Signature | + +-------+ + + + | WBC | 5.7 | 4.0 - 11.0 K/uL | [facility] | | | | | | [facility] | | | | | | MEDICAL | | | | | | CENTER - | | | | | | LABORATORY | | + +-------+ + + + | RBC | 4.47 | 4.30 - 5.70 | [facility] | | | | | M/uL | [facility] | | | | | | MEDICAL | | | | | | CENTER - | | | | | | LABORATORY | | + +-------+ + + + | Hemoglobin | 13.7 | 13.5 - 18.0 | [facility] | | | | | g/dL | [facility] | | | | | | MEDICAL | | | | | | CENTER - | | | | | | LABORATORY | | + +-------+ + + + | Hematocrit | 42.2 | 40.0 - 51.0 % | [facility] | | | | | | [facility] | | | | | | MEDICAL | | | | | | CENTER - | | | | | | LABORATORY | | + +-------+ + + + | MCV | 94.4 | 83.0 - 101.0 fL | [facility] | | | | | | [facility] | | | | | | MEDICAL | | | | | | CENTER - | | | | | | LABORATORY | | + +-------+ + + + | MCH | 30.6 | 28.0 - 35.0 pg | [facility] | | | | | | [facility] | | | | | | MEDICAL | | | | | | CENTER - | | | | | | LABORATORY | | + +-------+ + + + | MCHC | 32.5 | 32.0 - 36.0 | [facility] | | | | | g/dL | [facility] | | | | | | MEDICAL | | | | | | CENTER - | | | | | | LABORATORY | | + +-------+ + + + | RDW-CV | 11.8 | <15.0 % | [facility] | | | | | | [facility] | | | | | | MEDICAL | | | | | | CENTER - | | | | | | LABORATORY | | + +-------+ + + + | RDW-SD | 40.9 | 35.1 - 46.3 fL | [facility] | | | | | | [facility] | | | | | | MEDICAL | | | | | | CENTER - | | | | | | LABORATORY | | + +-------+ + + + | Platelet | 152 | 140 - 440 K/uL | [facility] | | | Count | | | [facility] | | | | | | MEDICAL | | | | | | CENTER - | | | | | | LABORATORY | | + +-------+ + + + | MPV | 10.9 | 6.5 - 12.4 fL | [facility] | | | | | | [facility] | | | | | | MEDICAL | | | | | | CENTER - | | | | | | LABORATORY | | + +-------+ + + + | % nRBC | 0 | 0 - 2 per 100 | [facility] | | | | | WBCs | [facility] | | | | | | MEDICAL | | | | | | CENTER - | | | | | | LABORATORY | | + +-------+ + + + | Absolute | 0.00 | 0.00 - 0.01 | [facility] | | | nRBC | | K/uL | [facility] | | | | | | MEDICAL [...] | + + + + + | [facility] | [address] | [place], [place] | [phone] | | [facility] | | [address] | | | - LABORATORY | | | | + + + + + POC Glucose (04/08/2019 8:24 PM PDT) + +-------+ + + + | Component | Value | Ref Range | Performed | Pathologist | | | | | At | Signature | + +-------+ + + + | Glucose, | 90 | 70 - 109 mg/dL | [facility] | | | POC | | | [facility] | | [...] | [address] | [place] | [phone] | | [facility] | | [address] | | | - LABORATORY | | | | + + + + + CT Head wo Contrast (04/08/2019 2:45 PM PDT) + + | Specimen | + + | | + + + + + | Narrative | Performed At | + + + | UNENHANCED HEAD CT 04/08/2019 2:44 PM CLINICAL HISTORY: | [facility] | | evaluate right sided CVA (improving left sided weakness started 3 | | | days ago), evaluate sinusitis COMPARISON: CTA April 05 and | | | more remote imaging TECHNIQUE: Axial unenhanced images are | | | performed through the head, along with coronal and sagittal | | | reformations. FINDINGS: Mild cerebral atrophy and minimal | | | hypoattenuation of the periventricular white matter persist. | | | Leo-white differentiation is maintained. A small rounded | | | hypodensity in the left thalamus and tiny hypodensities elsewhere in | | | the basal ganglia are long-term stable and consistent with chronic | | | lacunar infarcts. The ventricles, brainstem and cerebellum are | | | unremarkable. There is no mass effect, evidence of recent | | | intracranial hemorrhage or extra-axial fluid collection. Calcified | | | plaque is present in the terminal internal carotid arteries. | | | Pharyngeal lymphoid hypertrophy is again suggested, with asymmetric | | | partial effacement of the right vallecula. Near complete | | | opacification of the right maxillary sinus is minimally improved from | | | imaging of April 05. Mucous membrane thickening persists within | | | bilateral ethmoid air cells, and mildly involves the left maxillary | | | sinus as well. Mild mucous membrane thickening is now evident | | | within the frontal sinuses and anterior aspects of the sphenoid | | | sinuses. Periapical lucency involving the residual eroded appearing | | | maxillary teeth is again apparent, along with potential communication | | | with the floor of the right maxillary sinus. The middle ear | | | cavities and mastoid air cells are well aerated. Incomplete fusion | | | of the posterior arch of C1 is again evident. IMPRESSION - 1. | | | NO EVIDENCE OF EVOLVING ISCHEMIA OR OTHER ACUTE INTRACRANIAL | | | DISEASE. 2. 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 3. SLIGHT IMPROVEMENT IN | | | RIGHT MAXILLARY SINUS OPACIFICATION WITH PERSISTENT ETHMOID SINUS | | | DISEASE AND INCREASED MILD PARANASAL SINUS DISEASE OTHERWISE | | | DESCRIBED. PERIAPICAL LUCENCIES INVOLVING RESIDUAL ERODED MAXILLARY | | | TEETH ARE AGAIN NOTED, AND POTENTIAL COMMUNICATION WITH THE RIGHT | | | MAXILLARY SINUS IS AGAIN SUGGESTED. Dictated and Signed by: Rajeev | | | MD Joshua Electronically signed: 04/08/2019 3:22 PM | | + + + + + | Procedure Note | + + | K[facility], Rad Results In - 04/08/2019 3:25 PM PDT UNENHANCED HEAD CT 04/08/2019 2:44 PM | | | | CLINICAL HISTORY: evaluate right sided CVA (improving left sided weakness | | started 3 days ago), evaluate sinusitis | | | | COMPARISON: CTA April 05 and more remote imaging | | | | TECHNIQUE: Axial unenhanced images are performed through the head, along with | | coronal and sagittal reformations. | | | | FINDINGS: Mild cerebral atrophy and minimal hypoattenuation of the | | periventricular white matter persist. Leo-white differentiation is maintained. | | A small rounded hypodensity in the left thalamus and tiny hypodensities | | elsewhere in the basal ganglia are long-term stable and consistent with chronic | | lacunar infarcts. The ventricles, brainstem and cerebellum are unremarkable. | | There is no mass effect, evidence of recent intracranial hemorrhage or | | extra-axial fluid collection. Calcified plaque is present in the terminal | | internal carotid arteries. | | | | Pharyngeal lymphoid hypertrophy is again suggested, with asymmetric partial | | effacement of the right vallecula. Near complete opacification of the right | | maxillary sinus is minimally improved from imaging of April 05. | | | | Mucous membrane thickening persists within bilateral ethmoid air cells, and | | mildly involves the left maxillary sinus as well. Mild mucous membrane | | thickening is now evident within the frontal sinuses and anterior aspects of the | | sphenoid sinuses. Periapical lucency involving the residual eroded appearing | | maxillary teeth is again apparent, along with potential communication with the | | floor of the right maxillary sinus. The middle ear cavities and mastoid air | | cells are well aerated. Incomplete fusion of the posterior arch of C1 is again | | evident. | | | | IMPRESSION - | | 1. NO EVIDENCE OF EVOLVING ISCHEMIA OR OTHER ACUTE INTRACRANIAL DISEASE. | | | | 2. 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 | | | | 3. SLIGHT IMPROVEMENT IN RIGHT MAXILLARY SINUS OPACIFICATION WITH PERSISTENT | | ETHMOID SINUS DISEASE AND INCREASED MILD PARANASAL SINUS DISEASE OTHERWISE | | DESCRIBED. PERIAPICAL LUCENCIES INVOLVING RESIDUAL ERODED MAXILLARY TEETH ARE | | AGAIN NOTED, AND POTENTIAL COMMUNICATION WITH THE RIGHT MAXILLARY SINUS IS AGAIN | | SUGGESTED. | | | | Dictated and Signed by: Rajeev Lewis MD | | Electronically signed: 04/08/2019 3:22 PM | + + + +---------+ + + | Performing | Address | City/State/Zipcode | Phone Number | | Organization | | | | + +---------+ + + | [facility] | | | | + +---------+ + + POC Glucose (04/08/2019 11:56 AM PDT) + +-------+ + + + | Component | Value | Ref Range | Performed | Pathologist | | | | | At | Signature | + +-------+ + + + | Glucose, | 108 | 70 - 109 mg/dL | [facility] | | | POC | | | [facility] | | | | | | MEDICAL [...] + | [facility] | [address] | [place] | [phone] | | [facility] | | [address] | | | - LABORATORY | | | | + + + + + POC Glucose (04/08/2019 6:25 AM PDT) + +-------+ + + + | Component | Value | Ref Range | Performed | Pathologist | | | | | At | Signature | + +-------+ + + + | Glucose, | 96 | 70 - 109 mg/dL | [facility] | | | POC | | | [facility] | | [...] + | [facility] | [address] | [place] | [phone] | | [facility] | | [address] | | | - LABORATORY | | | | + + + + + Urinalysis with Microscopic with Culture if Indicated (04/07/2019 11:25 PM PDT) + + + + + + | Component | Value | Ref Range | Performed | Pathologist | | | | | At | Signature | + + + + + + | Color | Straw | Light Yellow, | [facility] | | | | | Yellow, Straw | [facility] | | | | | | MEDICAL | | | | | | CENTER - | | | | | | LABORATORY | | + + + + + + | Clarity | Clear | Clear | [facility] | | | | | | [facility] | | | | | | MEDICAL | | | | | | CENTER - | | | | | | LABORATORY | | + + + + + + | pH, Urine | 6.0 | 5.0 - 8.0 | [facility] | | | | | | [facility] | | | | | | MEDICAL | | | | | | CENTER - | | | | | | LABORATORY | | + + + + + + | Specific | 1.005 | 1.001 - 1.030 | [facility] | | | [place] | | | [facility] | | | | | | MEDICAL | | | | | | CENTER - | | | | | | LABORATORY | | + + + + + + | Protein, | Negative | Negative | [facility] | | | Urine | | | [facility] | | | | | | MEDICAL | | | | | | CENTER - | | | | | | LABORATORY | | + + + + + + | Blood, | Negative | Negative | [facility] | | | Urine | | | [facility] | | | | | | MEDICAL | | | | | | CENTER - | | | | | | LABORATORY | | + + + + + + | Glucose, | Negative | Negative | [facility] | | | Urine | | | [facility] | | | | | | MEDICAL | | | | | | CENTER - | | | | | | LABORATORY | | + + + + + + | Ketones, | Negative | Negative | [facility] | | | Urine | | | [facility] | | | | | | MEDICAL | | | | | | CENTER - | | | | | | LABORATORY | | + + + + + + | Bilirubin, | Negative | Negative | [facility] | | | Urine | | | [facility] | | | | | | MEDICAL | | | | | | CENTER - | | | | | | LABORATORY | | + + + + + + | Nitrite, | Negative | Negative | [facility] | | | Urine | | | [facility] | | | | | | MEDICAL | | | | | | CENTER - | | | | | | LABORATORY | | + + + + + + | Leukocyte | Negative | Negative | [facility] | | | Esterase, | | | [facility] | | | Urine | | | MEDICAL | | | | | | CENTER - | | | | | | LABORATORY | | + + + + + + | Urobilinoge | Negative | 0.2 mg/dL, 1.0 | [facility] | | | n, Urine | | mg/dL, Negative | [facility] | | | | | | MEDICAL | | | | | | CENTER - | | | | | | LABORATORY | | + + + + + + | WBC UA | 0-2 | 0 - 2 /HPF | [facility] | | | | | | [facility] | | | | | | MEDICAL | | | | | | CENTER - | | | | | | LABORATORY | | + + + + + + | RBC UA | 0-2 | 0 - 2 /HPF | [facility] | | | | | | [facility] | | | | | | MEDICAL | | | | | | CENTER - | | | | | | LABORATORY | | + + + + + + | SQUAMOUS | 0-2 | 0 - 2 /LPF | [facility] | | | EPITHELIAL | | | [facility] | | | UA | | | MEDICAL | | | | | | CENTER - | | | | | | LABORATORY | | + + + + + + | BACTERIA UA | Negative | Negative /HPF | [facility] | | | | | | [facility] | | | | | | MEDICAL | | | | | | CENTER - | | | | | | LABORATORY | | + + + + + + + + | Specimen | + + | Urine - Urine | | specimen obtained by | | clean catch | | procedure (specimen) | + + + + + + + | Performing | Address | City/State/Zipcode | Phone Number | | Organization | | | | + + + + + | [facility] | [address] | [place] | [phone] | | [facility] | | [address] | | | - LABORATORY | | | | + + + + + Culture, Blood (04/07/2019 9:54 PM PDT) + + + + + + | Component | Value | Ref Range | Performed | Pathologist | | | | | At | Signature | + + + + + + | Culture | No growth after 5 days | | [facility] | | | | incubation. | | [facility] | | | | | | MEDICAL | | | | | | CENTER - | | | | | | LABORATORY | | + + + + + + + + | Specimen | + + | Blood - Peripheral | | blood specimen | | (specimen) | + + + + + + + | Performing | Address | City/State/Zipcode | Phone Number | | Organization | | | | + + + + + | [facility] | [address] | [place] | [phone] | | [facility] | | [address] | | | - LABORATORY | | | | + + + + + Culture, Blood (04/07/2019 9:52 PM PDT) + + + + + + | Component | Value | Ref Range | Performed | Pathologist | | | | | At | Signature | + + + + + + | Culture | No growth after 5 days | | [facility] | | | | incubation. | | [facility] | | | | | | MEDICAL | | | | | | CENTER - | | | | | | LABORATORY | | + + + + + + + + | Specimen | + + | Blood - Peripheral | | blood specimen | | (specimen) | + + + + + + + | Performing | Address | City/State/Zipcode | Phone Number | | Organization | | | | + + + + + | [facility] | [address] | [place], [place] | [phone] | | [facility] | | [address] | | | - LABORATORY | | | | + + + + + XR Chest AP Portable (04/07/2019 9:41 PM PDT) + + | Specimen | + + | | + + + + + | Narrative | Performed At | + + + | EXAM: XR CHEST AP PORTABLE dated 04/07/2019 9:41 PM HISTORY: | [facility] | | fever, r/o pna Comparison: 01/02/2019 TECHNIQUE: A single | | | portable view of the chest. FINDINGS: The lungs are | | | symmetrically aerated. There is a rounded density projecting over | | | the left cardiac shadow. This is unchanged. There are no large | | | pleural effusions. There is no pneumothorax. The cardiac and | | | mediastinal contours are not enlarged. No acute osseous | | | abnormalities. IMPRESSION - No radiographic evidence for | | | acute disease in the chest. Dictated and Signed by: Oskar Medrano | | MD Matt Electronically signed: 04/08/2019 7:30 AM | | + + + + + | Procedure Note | + + | Kedar, Rad Results In - 04/08/2019 7:33 AM PDT EXAM: XR CHEST AP PORTABLE dated | | 04/07/2019 9:41 PMHISTORY: fever, r/o pnaComparison: 01/02/2019TECHNIQUE: A single | | portable view of the chest.FINDINGS:The lungs are symmetrically aerated. There is a | | rounded density projecting overthe left cardiac shadow. This is unchanged. There are | | no large pleuraleffusions. There is no pneumothorax. The cardiac and mediastinal | | contours arenot enlarged. No acute osseous abnormalities. IMPRESSION -No radiographic | | evidence for acute disease in the chest.Dictated and Signed by: Oskar Gutierrez MD | | Electronically signed: 04/08/2019 7:30 AM | |FINDINGS: | | | |The lungs are symmetrically aerated. There is a rounded density projecting over | |the left cardiac shadow. This is unchanged. There are no large pleural | |effusions. There is no pneumothorax. The cardiac and mediastinal contours are | |not enlarged. No acute osseous abnormalities. | | | |IMPRESSION - | | | |No radiographic evidence for acute disease in the chest. | | | |Dictated and Signed by: Oksar Gutierrez MD | | Electronically signed: 04/08/2019 7:30 AM | + + + +---------+ + + | Performing | Address | City/State/Zipcode | Phone Number | | Organization | | | | + +---------+ + + | [facility] | | | | + +---------+ + + POC Glucose (04/07/2019 9:11 PM PDT) + +---------+ + + + | Component | Value | Ref Range | Performed | Pathologist | | | | | At | Signature | + +---------+ + + + | Glucose, | 127 (H) | 70 - 109 mg/dL | [facility] | | | POC | | | [facility] | | | | | | MEDICAL | | | | | | CENTER - | | | | | | LABORATORY | | + +---------+ + + + + + | Specimen | + + | Blood | + + + + + + + | Performing | Address | City/State/Zipcode | Phone Number | | Organization | | | | + + + + + | [facility] | [address] | [place] | [phone] | | [facility] | | [address] | | | - LABORATORY | | | | + + + + + POC Glucose (04/07/2019 4:37 PM PDT) + +---------+ + + + | Component | Value | Ref Range | Performed | Pathologist | | | | | At | Signature | + +---------+ + + + | Glucose, | 111 (H) | 70 - 109 mg/dL | [facility] | | | POC | | | [facility] | | | | | | MEDICAL | | | | | | CENTER - | | | | | | LABORATORY | | + +---------+ + + + + + | Specimen | + + | Blood | + + + + + + + | Performing | Address | City/State/Zipcode | Phone Number | | Organization | | | | + + + + + | [facility] | [address] | [place] | [phone] | | [facility] | | [address] | | | - LABORATORY | | | | + + + + + POC Glucose (04/07/2019 11:43 AM PDT) + +-------+ + + + | Component | Value | Ref Range | Performed | Pathologist | | | | | At | Signature | + +-------+ + + + | Glucose, | 102 | 70 - 109 mg/dL | [facility] | | | POC | | | [facility] | | [...] [facility] | [address] | [place] | [phone] | | [facility] | | [address] | | | - LABORATORY | | | | + + + + + POC Glucose (04/07/2019 7:05 AM PDT) + +---------+ + + + | Component | Value | Ref Range | Performed | Pathologist | | | | | At | Signature | + +---------+ + + + | Glucose, | 140 (H) | 70 - 109 mg/dL | [facility] | | | POC | | | [facility] | | | | | | MEDICAL | | | | | | CENTER - | | | | | | LABORATORY | | + +---------+ + + + + + | Specimen | + + | Blood | + + + + + + + | Performing | Address | City/State/Zipcode | Phone Number | | Organization | | | | + + + + + | [facility] | [address] | [place] | [phone] | | [facility] | | [address] | | | - LABORATORY | | | | + + + + + POC Glucose (04/06/2019 8:37 PM PDT) + +---------+ + + + | Component | Value | Ref Range | Performed | Pathologist | | | | | At | Signature | + +---------+ + + + | Glucose, | 138 (H) | 70 - 109 mg/dL | [facility] | | | POC | | | [facility] | | | | | | MEDICAL | | | | | | CENTER - | | | | | | LABORATORY | | + +---------+ + + + + + | Specimen | + + | Blood | + + + + + + + | Performing | Address | City/State/Zipcode | Phone Number | | Organization | | | | + + + + + | [facility] | [address] | [place] | [phone] | | [facility] | | [id number] | | | - LABORATORY | | | | + + + + + POC Glucose (04/06/2019 5:01 PM PDT) + +---------+ + + + | Component | Value | Ref Range | Performed | Pathologist | | | | | At | Signature | + +---------+ + + + | Glucose, | 145 (H) | 70 - 109 mg/dL | [facility] | | | [facility] | | [facility] | [facility] | | | | | | [facility] - | | | | | | LABORATORY | | + +---------+ + + + + + | Specimen | + + | Blood | + + + + + + + | Performing | Address | City/State/Zipcode | Phone Number | | Organization | | | | + + + + + | [facility] | [address] | [place] | [phone] | | [facility] | | [id number] | | | - LABORATORY | | | | + + + + + POC Glucose (04/06/2019 11:36 AM PDT) + +---------+ + + + | Component | Value | Ref Range | Performed | Pathologist | | | | | At | Signature | + +---------+ + + + | Glucose, | 175 (H) | 70 - 109 mg/dL | [facility] | | | [facility] | | [facility] | | | | | [facility] | | | | | | [facility] - | | | | | | LABORATORY | | + +---------+ + + + + + | Specimen | + + | Blood | + + + + + + + | Performing | Address | City/State/Zipcode | Phone Number | | Organization | | | | + + + + + | [facility] | [address] | [place] | [phone] | | [facility] | | [address] | | | - LABORATORY | | | | + + + + + ECHO Complete (04/06/2019 9:33 AM PDT) + +--------+ + + + | Component | Value | Ref Range | Performed | Pathologist | | | | | At | Signature | + +--------+ + + + | BASELINE | 154/93 | mmHg | [facility] | | | BLOOD | | | | | | PRESSURE | | | | | + +--------+ + + + | Patient | 186 | | [facility] | | | Weight | | | | | | (lbs) | | | | | + +--------+ + + + | Patient | 6'0" | | [facility] | | | Height | | | | | + +--------+ + + + | LVIDd | 4.92 | cm | [facility] | | + +--------+ + + + | FS | 18 | % | [facility] | | + +--------+ + + + | LA volume | 76.4 | mL | [facility] | | + +--------+ + + + | Aortic arch | 2.99 | cm | [facility] | | + +--------+ + + + | AV mean | 4.52 | mmHg | [facility] | | | gradient | | | | | + +--------+ + + + | MV mean | 1.2 | mmHg | [facility] | | | gradient | | | | | + +--------+ + + + | MV Area by | 2.47 | cm2 | [facility] | | | P 1/2 | | | | | | method | | | | | + +--------+ + + + | IVRT | 114.19 | msec | [facility] | | + +--------+ + + + | LVOT peak | 89.08 | cm/s | [facility] | | | erica | | | | | + +--------+ + + + | LVOT peak | 17.21 | cm | [facility] | | | VTI | | | | | + +--------+ + + + | AV peak erica | 136.8 | cm/s | [facility] | | + +--------+ + + + | AV VTI | 24.88 | cm | [facility] | | + +--------+ + + + | AV peak | 7.49 | mmHg | [facility] | | | gradient | | | | | + +--------+ + + + | MV peak | 4.35 | mmHg | [facility] | | | gradient | | | | | + +--------+ + + + | MV Pressure | 89.23 | msec | [facility] | | | 1/2 time | | | | | + +--------+ + + + | LA Volume | 37 | mL/m2 | [facility] | | | Index | | | | | + +--------+ + + + | AV LVOT | 3.17 | mmHg | [facility] | | | Peak | | | | | | Gradient | | | | | + +--------+ + + + | AV LVOT | 1.61 | mmHg | [facility] | | | Mean | | | | | | Gradient | | | | | + +--------+ + + + | LV | 8.51 | cm | [facility] | | | Diastolic | | | | | | Length 4C | | | | | + +--------+ + + + | LV | 50 | % | [facility] | | | Jnoes's | | | | | | Biplane EF | | | | | + +--------+ + + + | LV ED | 76.8 | ml | [facility] | | | Volume | | | | | | (Jones's) | | | | | + +--------+ + + + | LV ED | 37 | ml/m2 | [facility] | | | Volume | | | | | | Index | | | | | + +--------+ + + + | LV ES | 40.67 | ml | [facility] | | | Volume | | | | | + +--------+ + + + | LVOT Mean | 59.2 | cm/s | [facility] | | | Velocity | | | | | + +--------+ + + + | MV E' | 8 | cm/s | [facility] | | | Septal | | | | | | Velocity | | | | | + +--------+ + + + | MV | 181.84 | cm/s2 | [facility] | | | Deceleratio | | | | | | n [place] | | | | | + +--------+ + + + | MV | 307.7 | msec | [facility] | | | Deceleratio | | | | | | n Time | | | | | + +--------+ + + + | MV E/A | 0.77 | | [facility] | | | Ratio | | | | | + +--------+ + + + | MV Mean | 51.01 | cm/s | [facility] | | | Velocity | | | | | + +--------+ + + + | MV Peak | 72.61 | cm/s | [facility] | | | A-Wave | | | | | + +--------+ + + + | MV Peak | 55.95 | cm/s | [facility] | | | E-Wave | | | | | + +--------+ + + + | AV Mean | 102.73 | cm/s | [facility] | | | Velocity | | | | | + +--------+ + + + | LA/Aorta | 1.01 | | [facility] | | | Ratio | | | | | + +--------+ + + + | LA Area | 23.6 | cm2 | [facility] | | + +--------+ + + + | MV E/E | 6.99 | | [facility] | | | SEPTAL | | | | | + +--------+ + + + | LA Major | 0.2488 | cm | [facility] | | + +--------+ + + + | LV ES | 20 | ml/m2 | [facility] | | | Volume | | | | | | Index | | | | | + +--------+ + + + | Aortic Root | 4.44 | cm | [facility] | | | Diameter | | | | | + +--------+ + + + | IVS | 0.79 | cm | [facility] | | | Diastolic | | | | | | Thickness | | | | | | MM | | | | | + +--------+ + + + | LVPW | 1.01 | cm | [facility] | | | Diastolic | | | | | | Thickness | | | | | | MM | | | | | + +--------+ + + + | IVS | 1.26 | cm | [facility] | | | Systolic | | | | | | Thickness | | | | | | MM | | | | | + +--------+ + + + | LV Systolic | 4.02 | cm | [facility] | | | Diameter | | | | | | MM | | | | | + +--------+ + + + | LVPW | 1.24 | cm | [facility] | | | Systolic | | | | | | Thickness | | | | | | MM | | | | | + +--------+ + + + | AV Cusp | 2.96 | cm | [facility] | | | Seperation | | | | | | MM | | | | | + +--------+ + + + | LA Systolic | 4.5 | cm | [facility] | | | Diameter | | | | | | MM | | | | | + +--------+ + + + | TAPSE | 2.2 | cm | [facility] | | + +--------+ + + + | LVEF-TTE | 55 | % | [facility] | | | TRANSTHORAC | | | | | | IC ECHO | | | | | + +--------+ + + + | RA PRESSURE | 15 | mmHg | [facility] | | + +--------+ + + + + + | Specimen | + + | | + + + + + | Narrative | Performed At | + + + | 1. This is a | [facility] | | technically very limited study due to a poor acoustic window.2. | | | Normal left ventricular size, wall thickness and motion. Preserved | | | left ventricular systolic function. LVEF is 55%.3. Grade 1 left | | | ventricular diastolic dysfunction.4. Not well visualized valvular | | | structure.5. Not able to assess right-sided pressure.6. Not well | | | visualized IVC.7. Negative agitated saline bubble study at rest, | | | during Valsalva and coughing maneuver. | | |7. Negative agitated saline bubble study at rest, during Valsalva and | | |coughing maneuver. | | + + + + +---------+ + + | Performing | Address | City/State/Zipcode | Phone Number | | Organization | | | | + +---------+ + + | [facility] | | | | + +---------+ + + CBC with Differential (04/06/2019 5:14 AM PDT) + + + + + + | Component | Value | Ref Range | Performed | Pathologist | | | | | At | Signature | + + + + + + | WBC | 7.1 | 4.0 - 11.0 K/uL | [facility] | | | | | | [facility] | | | | | | [facility]ICAL | | | | | | CENTER - | | | | | | LABORATORY | | + + + + + + | RBC | 4.06 (L) | 4.30 - 5.70 | [facility] | | | | | M/uL | [facility] | | | | | | MEDICAL | | | | | | CENTER - | | | | | | LABORATORY | | + + + + + + | Hemoglobin | 12.4 (L) | 13.5 - 18.0 | [facility] | | | | | g/dL | [facility] | | | | | | MEDICAL | | | | | | CENTER - | | | | | | LABORATORY | | + + + + + + | Hematocrit | 38.4 (L) | 40.0 - 51.0 % | [facility] | | | | | | [facility] | | | | | | MEDICAL | | | | | | CENTER - | | | | | | LABORATORY | | + + + + + + | MCV | 94.6 | 83.0 - 101.0 fL | [facility] | | | | | | [facility] | | | | | | MEDICAL | | | | | | CENTER - | | | | | | LABORATORY | | + + + + + + | MCH | 30.5 | 28.0 - 35.0 pg | [facility] | | | | | | [facility] | | | | | | MEDICAL | | | | | | CENTER - | | | | | | LABORATORY | | + + + + + + | MCHC | 32.3 | 32.0 - 36.0 | [facility] | | | | | g/dL | [facility] | | | | | | MEDICAL | | | | | | CENTER - | | | | | | LABORATORY | | + + + + + + | RDW-CV | 12.4 | <15.0 % | [facility] | | | | | | [facility] | | | | | | MEDICAL | | | | | | CENTER - | | | | | | LABORATORY | | + + + + + + | RDW-SD | 42.8 | 35.1 - 46.3 fL | [facility] | | | | | | [facility] | | | | | | MEDICAL | | | | | | CENTER - | | | | | | LABORATORY | | + + + + + + | Platelet | 158 | 140 - 440 K/uL | [facility] | | | Count | | | [facility] | | | | | | MEDICAL | | | | | | CENTER - | | | | | | LABORATORY | | + + + + + + | MPV | 11.3 | 6.5 - 12.4 fL | [facility] | | | | | | [facility] | | | | | | MEDICAL | | | | | | CENTER - | | | | | | LABORATORY | | + + + + + + | % | 62.6 | 45.0 - 82.0 % | [facility] | | | Neutrophils | | | [facility] | | | | | | MEDICAL | | | | | | CENTER - | | | | | | LABORATORY | | + + + + + + | % | 21.8 | 20.0 - 45.0 % | [facility] | | | Lymphocytes | | | [facility] | | | | | | MEDICAL | | | | | | CENTER - | | | | | | LABORATORY | | + + + + + + | % Monocytes | 12.3 (H) | 4.0 - 12.0 % | [facility] | | | | | | [facility] | | | | | | MEDICAL | | | | | | CENTER - | | | | | | LABORATORY | | + + + + + + | % | 2.6 | 0.0 - 5.0 % | [facility] | | | Eosinophils | | | [facility] | | | | | | MEDICAL | | | | | | CENTER - | | | | | | LABORATORY | | + + + + + + | % Basophils | 0.4 | 0.0 - 1.0 % | [facility] | | | | | | [facility] | | | | | | MEDICAL | | | | | | CENTER - | | | | | | LABORATORY | | + + + + + + | % Immature | 0.3 | 0.0 - 0.4 % | [facility] | | | Granulocyte | | | [facility] | | | s | | | MEDICAL | | | | | | CENTER - | | | | | | LABORATORY | | + + + + + + | Absolute | 4.41 | 1.80 - 8.50 | [facility] | | | Neutrophils | | K/uL | [facility] | | | | | | MEDICAL | | | | | | CENTER - | | | | | | LABORATORY | | + + + + + + | Absolute | 1.54 | 0.60 - 3.20 | [facility] | | | Lymphocytes | | K/uL | [facility] | | | | | | MEDICAL | | | | | | CENTER - | | | | | | LABORATORY | | + + + + + + | Absolute | 0.87 | 0.00 - 1.00 | [facility] | | | Monocytes | | K/uL | [facility] | | | | | | MEDICAL | | | | | | CENTER - | | | | | | LABORATORY | | + + + + + + | Absolute | 0.18 | 0.00 - 0.40 | [facility] | | | Eosinophils | | K/uL | [facility] | | | | | | MEDICAL | | | | | | CENTER - | | | | | | LABORATORY | | + + + + + + | Absolute | 0.03 | 0.00 - 0.10 | [facility] | | | Basophils | | K/uL | [facility] | | | | | | MEDICAL | | | | | | CENTER - | | | | | | LABORATORY | | + + + + + + | Absolute | 0.02 | 0.00 - 0.03 | [facility] | | | Immature | | K/uL | [facility] | | | Granulocyte | | | MEDICAL | | | s | | | CENTER - | | | | | | LABORATORY | | + + + + + + | % nRBC | 0 | 0 - 2 per 100 | [facility] | | | | | WBCs | [facility] | | | | | | MEDICAL | | | | | | CENTER - | | | | | | LABORATORY | | + + + + + + | Absolute | 0.00 | 0.00 - 0.01 | [facility] | | | nRBC | | K/uL | [facility] | | | | [...] | + + + + + | [facility] | [address] | [place], [place] | [phone] | | [facility] | | [address] | | | - LABORATORY | | | | + + + + + Lipid Panel (04/06/2019 5:13 AM PDT) + +-------+ + + + | Component | Value | Ref Range | Performed | Pathologist | | | | | At | Signature | + +-------+ + + + | Triglycerid | 78 | <=150 mg/dL | [facility] | | | es | | | [facility] | | | | | | MEDICAL | | | | | | CENTER - | | | | | | LABORATORY | | + +-------+ + + + | Cholesterol | 105 | <=200 mg/dL | [facility] | | | | | | [facility] | | | | | | MEDICAL | | | | | | CENTER - | | | | | | LABORATORY | | + +-------+ + + + | HDL | 41 | 40 - 60 mg/dL | [facility] | | | | | | [facility] | | | | | | MEDICAL | | | | | | CENTER - | | | | | | LABORATORY | | + +-------+ + + + | Chol/HDL | 2.6 | | [facility] | | | Ratio | | | [facility] | | | | | | MEDICAL | | | | | | CENTER - | | | | | | LABORATORY | | + +-------+ + + + | LDL, | 48 | <=130 mg/dL | [facility] | | | Calculated | | | [facility] | | | | | | MEDICAL [...] | [address] | [place] | [phone] | | [facility] | | [address] | | | - LABORATORY | | | | + + + + + Phosphorus (04/06/2019 5:13 AM PDT) + +-------+ + + + | Component | Value | Ref Range | Performed | Pathologist | | | | | At | Signature | + +-------+ + + + | Phosphorus | 3.5 | 2.4 - 5.1 mg/dL | [facility] | | | | | | [facility] | | | | | | MEDICAL [...] + + | [facility] | [address] | [place] | [phone] | | [facility] | | [address] | | | - LABORATORY | | | | + + + + + Magnesium (04/06/2019 5:13 AM PDT) + +-------+ + + + | Component | Value | Ref Range | Performed | Pathologist | | | | | At | Signature | + +-------+ + + + | Magnesium | 1.8 | 1.6 - 2.6 mg/dL | [facility] | | | | [...] | [address] | [place] | [phone] | | [facility] | | [address] | | | - LABORATORY | | | | + + + + + Hemoglobin A1C (04/06/2019 5:13 AM PDT) + +-------+ + + + | Component | Value | Ref Range | Performed | Pathologist | | | | | At | Signature | + +-------+ + + + | Hemoglobin | 5.0 | 4.3 - 6.0 % | [facility] | | | A1c | | | [facility] | | | | | | MEDICAL | | | | | | CENTER - | | | | | | LABORATORY | | + +-------+ + + + | Estimated | 97 | mg/dL | [facility] | | | Average | | | [facility] | | | Glucose | | | MEDICAL | | | [...] | [address] | [place] | [phone] | | [facility] | | [address] | | | - LABORATORY | | | | + + + + + Comprehensive Metabolic Panel (04/06/2019 5:13 AM PDT) + + + + + + | Component | Value | Ref Range | Performed | Pathologist | | | | | At | Signature | + + + + + + | Na | 138 | 136 - 145 | [facility] | | | | | mmol/L | [facility] | | | | | | MEDICAL | | | | | | CENTER - | | | | | | LABORATORY | | + + + + + + | K | 3.4 | 3.4 - 5.1 | [facility] | | | | | mmol/L | [facility] | | | | | | MEDICAL | | | | | | CENTER - | | | | | | LABORATORY | | + + + + + + | Cl | 102 | 98 - 107 mmol/L | [facility] | | | | | | [facility] | | | | | | MEDICAL | | | | | | CENTER - | | | | | | LABORATORY | | + + + + + + | CO2 | 31 | 20 - 31 mmol/L | [facility] | | | | | | [facility] | | | | | | MEDICAL | | | | | | CENTER - | | | | | | LABORATORY | | + + + + + + | Anion Gap | 5 | 3 - 16 mmol/L | [facility] | | | | | | [facility] | | | | | | MEDICAL | | | | | | CENTER - | | | | | | LABORATORY | | + + + + + + | Glucose | 140 (H) | 60 - 106 mg/dL | [facility] | | | | | | [facility] | | | | | | MEDICAL | | | | | | CENTER - | | | | | | LABORATORY | | + + + + + + | BUN | 7 (L) | 9 - 23 mg/dL | [facility] | | | | | | [facility] | | | | | | MEDICAL | | | | | | CENTER - | | | | | | LABORATORY | | + + + + + + | Creatinine | 0.94 | 0.70 - 1.30 | [facility] | | | | | mg/dL | [facility] | | | | | | MEDICAL | | | | | | CENTER - | | | | | | LABORATORY | | + + + + + + | eGFR if not | >60Comment: GLOMERULAR | >=60 | [facility] | | | | FILTRATION | mL/min/1.73m2 | [facility] | | | TURKISH | RATE,ESTIMATED | | MEDICAL | | | | mL/min/1.92h4Fpzk than | | CENTER - | | [...] + + + + | Calcium | 9.1 | 8.7 - 10.4 | [facility] | | | | | mg/dL | [facility] | | | | | | MEDICAL | | | | | | CENTER - | | | | | | LABORATORY | | + + + + + + | Albumin | 3.8 | 3.2 - 4.8 g/dL | [facility] | | | | | | [facility] | | | | | | MEDICAL | | | | | | CENTER - | | | | | | LABORATORY | | + + + + + + | Bilirubin | 0.4 | 0.3 - 1.2 mg/dL | [facility] | | | Total | | | [facility] | | | | | | MEDICAL | | | | | | CENTER - | | | | | | LABORATORY | | + + + + + + | Total | 6.0 | 5.7 - 8.2 g/dL | [facility] | | | Protein | | | [facility] | | | | | | MEDICAL | | | | | | CENTER - | | | | | | LABORATORY | | + + + + + + | AST | 22 | 0 - 34 U/L | [facility] | | | | | | [facility] | | | | | | MEDICAL | | | | | | CENTER - | | | | | | LABORATORY | | + + + + + + | ALT | 32 | 10 - 49 U/L | [facility] | | | | | | [facility] | | | | | | MEDICAL | | | | | | CENTER - | | | | | | LABORATORY | | + + + + + + | Alkaline | 97 | 46 - 116 U/L | [facility] | | | Phosphatase | | | [facility] | | | | | | MEDICAL | | | | | | CENTER - | | | | | | LABORATORY | | + + + + + + | Globulin | 2.2 | 2.1 - 3.8 g/dL | [facility] | | | | | | [facility] | | | | | | MEDICAL | | | | | | CENTER - | | | | | | LABORATORY | | + + + + + + | Albumin/Clara | 1.7 | 0.8 - 1.9 | [facility] | | | bulin Ratio | | | [facility] | | | | | | MEDICAL | | | | | | CENTER - | | | | | | LABORATORY | | + + + + + + | BUN/Creatin | 7.4 | | [facility] | | | ine Ratio | | | [facility] | | | | | | MEDICAL [...] ST. | [address] | [place] | [phone] | | [facility] | | [address] | | | - LABORATORY | | | | + + + + + Culture, MRSA (04/06/2019 2:43 AM PDT) + + + + + + | Component | Value | Ref Range | Performed | Pathologist | | | | | At | Signature | + + + + + + | Culture | Negative for MRSA by | | [facility] | | | | chromogenic agar method | | [facility] | | | | | | MEDICAL | | | | | | CENTER - | | | | | | LABORATORY | | + + + + + + | Culture | 3+ Coagulase positive | | [facility] | | | | Staphylococcus | | [facility] | | | | | | MEDICAL | | | | | | CENTER - | | | | | | LABORATORY | | + + + + + + + + | Specimen | + + | Tissue - Both | | anterior nares (body | | structure) | + + + + + + + | Performing | Address | City/State/Zipcode | Phone Number | | Organization | | | | + + + + + | [facility] | [address] | [place] | [phone] | | [facility] | | [address] | | | - LABORATORY | | | | + + + + + Hepatitis Panel, Acute (04/05/2019 9:50 PM PDT) + + + + + + | Component | Value | Ref Range | Performed | Pathologist | | | | | At | Signature | + + + + + + | HEP A IGM | Negative | Negative | [facility] | | | AB, REF | | | LAB [facility] | | | | | | - [facility] | | + + + + + + | Hepatitis B | Negative | Negative | [facility] | | | Surface Ag | | | [facility] | | | | | | - [facility] | | + + + + + + | HEP B Core | Negative | Negative | [facility] | | | IGM | | | [facility] | | | Antibody | | | - [facility] | | + + + + + + | Hepatitis C | >11.0 (H)Comment: | 0.0 - 0.9 s/co | [facility] | | | Ab | | ratio | LAB [facility] | | | | | | - [facility] | | | | Negative: < 0.8 | | | | | | | | | | | | | | | | | | Indeterminate: 0.8 - 0.9 | | | | | | | | | | | | | | | | | | Positive: > 0.9 | | | | | | The CDC recommends that | | | | | | a positive HCV antibody | | | | | | result be followed up | | | | | | with a HCV Nucleic Acid | | | | | | Amplification test | | | | | | ([id number]). | | | | + + + + + + + + | Specimen | + + | Blood | + + + + + | Narrative | Performed At | + + + | Performed at: [address] [facility] [address], | [facility] | | [place], [place] [id number] Online Advertising Manager: Darrel Waldron MD, Phone: | [facility] | | [phone] | | + + + + + + + + | Performing | Address | City/State/Zipcode | Phone Number | | Organization | | | | + + + + + | [facility] | [id number] | [place] [address] | [phone] | | [facility] | [address] | | | + + + + + HIV Type 1 and 2 Ab Screen, Rapid (04/05/2019 9:49 PM PDT) + + + + + + | Component | Value | Ref Range | Performed | Pathologist | | | | | At | Signature | + + + + + + | HIV 1 and 2 | Non-Reactive | Non-Reactive | [facility] | | | Ab, Rapid | | | [facility] | | | | | | MEDICAL | | | | | | CENTER - | | | | | | LABORATORY | | + + + + + + | HIV-1 P24 | Non-Reactive | Non-Reactive | [facility] | | | Ag | | | [facility] | | | | | | MEDICAL [...] + + | [facility] | [address] | [place], [place] | [phone] | | [facility] | | [address] | | | - LABORATORY | | | | + + + + + Drugs of Abuse, Screen, Urine (04/05/2019 9:26 PM PDT) + + + + + + | Component | Value | Ref Range | Performed | Pathologist | | | | | At | Signature | + + + + + + | Amphetamine | Positive (A) | Negative | [facility] | | | Screen, | | | [facility] | | | Urine | | | MEDICAL | | | | | | CENTER - | | | | | | LABORATORY | | + + + + + + | Barbiturate | Negative | Negative | [facility] | | | s Screen, | | | [facility] | | | Urine | | | MEDICAL | | | | | | CENTER - | | | | | | LABORATORY | | + + + + + + | Benzodiazep | Negative | Negative | [facility] | | | gabe | | | [facility] | | | Screen, | | | MEDICAL | | | Urine | | | CENTER - | | | | | | LABORATORY | | + + + + + + | Cannabinoid | Negative | Negative | [facility] | | | s Screen, | | | [facility] | | | Urine | | | MEDICAL | | | | | | CENTER - | | | | | | LABORATORY | | + + + + + + | Cocaine | Negative | Negative | [facility] | | | Screen, | | | [facility] | | | Urine | | | MEDICAL | | | | | | CENTER - | | | | | | LABORATORY | | + + + + + + | Methadone | Negative | Negative | [facility] | | | Screen, | | | [facility] | | | Urine | | | MEDICAL | | | | | | CENTER - | | | | | | LABORATORY | | + + + + + + | Opiates | Negative | Negative | [facility] | | | Screen, | | | [facility] | | | Urine | | | MEDICAL | | | | | | CENTER - | | | | | | LABORATORY | | + + + + + + + + | Specimen | + + | Urine | + + + + + + + | Performing | Address | City/State/Zipcode | Phone Number | | Organization | | | | + + + + + | [facility] | [address] | [place] | [phone] | | [facility] | | [address] | | | - LABORATORY | | | | + + + + + Urinalysis with Microscopic with Culture if Indicated (04/05/2019 9:26 PM PDT) + + + + + + | Component | Value | Ref Range | Performed | Pathologist | | | | | At | Signature | + + + + + + | Color | Straw | Light Yellow, | [facility] | | | | | Yellow, Straw | [facility] | | | | | | MEDICAL | | | | | | CENTER - | | | | | | LABORATORY | | + + + + + + | Clarity | Clear | Clear | [facility] | | | | | | [facility] | | | | | | [facility] | | | | | | [facility] - | | | | | | LABORATORY | | + + + + + + | pH, Urine | 6.0 | 5.0 - 8.0 | [facility] | | | | | | [facility] | | | | | | [facility] | | | | | | CENTER - | | | | | | LABORATORY | | + + + + + + | Specific | 1.018 | 1.001 - 1.030 | [facility] | | | [place] | | | [facility] | | | | | | MEDICAL | | | | | | CENTER - | | | | | | LABORATORY | | + + + + + + | Protein, | Negative | Negative | [facility] | | | Urine | | | [facility] | | | | | | MEDICAL | | | | | | CENTER - | | | | | | LABORATORY | | + + + + + + | Blood, | Negative | Negative | [facility] | | | Urine | | | [facility] | | | | | | [facility] | | | | | | CENTER - | | | | | | LABORATORY | | + + + + + + | Glucose, | Negative | Negative | [facility] | | | Urine | | | [facility] | | | | | | [facility]ICAL | | | | | | CENTER - | | | | | | LABORATORY | | + + + + + + | Ketones, | Negative | Negative | [facility] | | | Urine | | | [facility] | | | | | | MEDICAL | | | | | | CENTER - | | | | | | LABORATORY | | + + + + + + | Bilirubin, | Negative | Negative | [facility] | | | Urine | | | [facility] | | | | | | MEDICAL | | | | | | CENTER - | | | | | | LABORATORY | | + + + + + + | Nitrite, | Negative | Negative | [facility] | | | Urine | | | [facility] | | | | | | MEDICAL | | | | | | CENTER - | | | | | | LABORATORY | | + + + + + + | Leukocyte | Negative | Negative | [facility] | | | Esterase, | | | [facility] | | | Urine | | | MEDICAL | | | | | | CENTER - | | | | | | LABORATORY | | + + + + + + | Urobilinoge | Negative | 0.2 mg/dL, 1.0 | [facility] | | | n, Urine | | mg/dL, Negative | [facility] | | | | | | MEDICAL | | | | | | CENTER - | | | | | | LABORATORY | | + + + + + + | WBC UA | 0-2 | 0 - 2 /HPF | [facility] | | | | | | [facility] | | | | | | [facility] | | | | | | CENTER - | | | | | | LABORATORY | | + + + + + + | RBC UA | 0-2 | 0 - 2 /HPF | [facility] | | | | | | [facility] | | | | | | [facility]ICAL | | | | | | CENTER - | | | | | | LABORATORY | | + + + + + + | SQUAMOUS | 0-2 | 0 - 2 /LPF | [facility] | | | [facility] | | | [facility] | | | UA | | | MEDICAL | | | | | | CENTER - | | | | | | LABORATORY | | + + + + + + | BACTERIA UA | Negative | Negative /HPF | [facility] | | | | | | [facility] | | | | | | MEDICAL | | | | | | CENTER - | | | | | | LABORATORY | | + + + + + + | URINE | Urine Culture Not | | [facility] | | | COMMENT | Indicated | [facility] | | | | | | [facility] | | | | | | CENTER - | | | | | | LABORATORY | | + + + + + + + + | Specimen | + + | Urine | + + + + + + + | Performing | Address | City/State/Zipcode | Phone Number | | Organization | | | | + + + + + | [facility] | [address] | [place] | [phone] | | [facility] | | [id number] | | | - LABORATORY | | | | + + + + + Type and Screen (04/05/2019 9:25 PM PDT) + + + + + + | Component | Value | Ref Range | Performed | Pathologist | | | | | At | Signature | + + + + + + | ABO | O | | [facility] | | | | | | [facility] | | | | | | MEDICAL | | | | | | CENTER - | | | | | | BLOOD BANK | | + + + + + + | Rh Type | Positive | | [facility] | | | | | | [facility] | | | | | | MEDICAL | | | | | | CENTER - | | | | | | BLOOD BANK | | + + + + + + | Antibody | Negative | | [facility] | | | Screen | | | [facility] | | | | | | MEDICAL | | | | | | CENTER - | | | | | | BLOOD BANK | | + + + + + + + + | Specimen | + + | Blood | + + + + + + + | Performing | Address | City/State/Zipcode | Phone Number | | Organization | | | | + + + + + | [facility] | [address] | [place] | | | [facility] | | [id number] | | | - BLOOD BANK | | | | + + + + + Magnesium (04/05/2019 9:13 PM PDT) + +-------+ + + + | Component | Value | Ref Range | Performed | Pathologist | | | | | At | Signature | + +-------+ + + + | Magnesium | 1.7 | 1.6 - 2.6 mg/dL | [facility] | | | | | | [facility] | | [...] | + + + + + | [facility] | [address] | [place] | [phone] | | [facility] | | [address] | | | - LABORATORY | | | | + + + + + TSH (04/05/2019 9:13 PM PDT) + +-------+ + + + | Component | Value | Ref Range | Performed | Pathologist | | | | | At | Signature | + +-------+ + + + | TSH | 0.64 | 0.55 - 4.78 | [facility] | | | | | uIU/mL | [facility] | | | | | | MEDICAL [...] | + + + + + | [facility] | [address] | [place] | [phone] | | [facility] | | [address] | | | - LABORATORY | | | | + + + + + Ethanol (04/05/2019 9:13 PM PDT) + +-------+ + + + | Component | Value | Ref Range | Performed | Pathologist | | | | | At | Signature | + +-------+ + + + | ALCOHOL, | 7 (H) | <=6 mg/dL | [facility] | | | SERUM/PLASM | | | [facility] | | | A | | | MEDICAL | | | [...] ST. | [address] | [place], [place] | [phone] | | [facility] | | [address] | | | - LABORATORY | | | | + + + + + Protime INR (04/05/2019 9:13 PM PDT) + + + + + + | Component | Value | Ref Range | Performed | Pathologist | | | | | At | Signature | + + + + + + | Prothrombin | 13.0 | 11.3 - 13.9 | [facility] | | | Time | | seconds | [facility] | | | | | | MEDICAL | | | | | | CENTER - | | | | | | LABORATORY | | + + + + + + | INR | 1.0Comment: Usual Oral | 0.9 - 1.1 | [facility] | | | | Anticoagulation Range: | | [facility] | | | | 2.0 - 3.0High [...] | + + + + + | [facility] | [address] | [place] | [phone] | | [facility] | | [address] | | | - LABORATORY | | | | + + + + + B Type Natriuretic Peptide (04/05/2019 9:13 PM PDT) + +-------+ + + + | Component | Value | Ref Range | Performed | Pathologist | | | | | At | Signature | + +-------+ + + + | BNP | 90 | <100 pg/mL | [facility] | | | | | | [facility] | | [...] ST. | [address] | [place] | [phone] | | [facility] | | [address] | | | - LABORATORY | | | | + + + + + Troponin I (04/05/2019 9:13 PM PDT) + + + + + + | Component | Value | Ref Range | Performed | Pathologist | | | | | At | Signature | + + + + + + | Troponin I | 0.01Comment: | <0.06 ng/mL | [facility] | | | | Comment:Reference | | [facility] | | | | Ranges: 0.00-0.06 = | | MEDICAL | | | | NORMAL >0.06 = | | CENTER - | | | | SUSPICIOUS FOR | | LABORATORY | | | | MYOCARDIAL DAMAGE NOTE: | | | | | | Values greater than | | | | | | 0.78 ng/mL have been | | | | | | shown to be strongly | | | | | | associated with acute | | | | | | myocardial infarction. | | | | | | [employer] | | | | | [...] | + + + + + | [facility] | [address] | [place] | [phone] | | [facility] | | [address] | | | - LABORATORY | | | | + + + + + Comprehensive Metabolic Panel (04/05/2019 9:13 PM PDT) + + + + + + | Component | Value | Ref Range | Performed | Pathologist | | | | | At | Signature | + + + + + + | Na | 135 (L) | 136 - 145 | [facility] | | | | | mmol/L | [facility] | | | | | | MEDICAL | | | | | | CENTER - | | | | | | LABORATORY | | + + + + + + | K | 3.5 | 3.4 - 5.1 | [facility] | | | | | mmol/L | [facility] | | | | | | MEDICAL | | | | | | CENTER - | | | | | | LABORATORY | | + + + + + + | Cl | 104 | 98 - 107 mmol/L | [facility] | | | | | | [facility] | | | | | | MEDICAL | | | | | | CENTER - | | | | | | LABORATORY | | + + + + + + | CO2 | 28 | 20 - 31 mmol/L | [facility] | | | | | | [facility] | | | | | | MEDICAL | | | | | | CENTER - | | | | | | LABORATORY | | + + + + + + | Anion Gap | 3 | 3 - 16 mmol/L | [facility] | | | | | | [facility] | | | | | | MEDICAL | | | | | | CENTER - | | | | | | LABORATORY | | + + + + + + | Glucose | 91 | 60 - 106 mg/dL | [facility] | | | | | | [facility] | | | | | | MEDICAL | | | | | | CENTER - | | | | | | LABORATORY | | + + + + + + | BUN | 10 | 9 - 23 mg/dL | [facility] | | | | | | [facility] | | | | | | MEDICAL | | | | | | CENTER - | | | | | | LABORATORY | | + + + + + + | Creatinine | 0.97 | 0.70 - 1.30 | [facility] | | | | | mg/dL | [facility] | | | | | | MEDICAL | | | | | | CENTER - | | | | | | LABORATORY | | + + + + + + | eGFR if not | >60Comment: GLOMERULAR | >=60 | [facility] | | | | FILTRATION | mL/min/1.73m2 | [facility] | | | TURKISH | RATE,ESTIMATED | | MEDICAL | | | | mL/min/1.54g4Hesh than | | CENTER - | | [...] + + + + | Calcium | 8.4 (L) | 8.7 - 10.4 | [facility] | | | | | mg/dL | [facility] | | | | | | MEDICAL | | | | | | CENTER - | | | | | | LABORATORY | | + + + + + + | Albumin | 3.3 | 3.2 - 4.8 g/dL | [facility] | | | | | | [facility] | | | | | | MEDICAL | | | | | | CENTER - | | | | | | LABORATORY | | + + + + + + | Bilirubin | 0.4 | 0.3 - 1.2 mg/dL | [facility] | | | Total | | | [facility] | | | | | | MEDICAL | | | | | | CENTER - | | | | | | LABORATORY | | + + + + + + | Total | 5.2 (L) | 5.7 - 8.2 g/dL | [facility] | | | Protein | | | [facility] | | | | | | MEDICAL | | | | | | CENTER - | | | | | | LABORATORY | | + + + + + + | AST | 22 | 0 - 34 U/L | [facility] | | | | | | [facility] | | | | | | MEDICAL | | | | | | CENTER - | | | | | | LABORATORY | | + + + + + + | ALT | 31 | 10 - 49 U/L | [facility] | | | | | | [facility] | | | | | | MEDICAL | | | | | | CENTER - | | | | | | LABORATORY | | + + + + + + | Alkaline | 85 | 46 - 116 U/L | [facility] | | | Phosphatase | | | [facility] | | | | | | MEDICAL | | | | | | CENTER - | | | | | | LABORATORY | | + + + + + + | Globulin | 1.9 (L) | 2.1 - 3.8 g/dL | [facility] | | | | | | [facility] | | | | | | MEDICAL | | | | | | CENTER - | | | | | | LABORATORY | | + + + + + + | Albumin/Clara | 1.7 | 0.8 - 1.9 | [facility] | | | bulin Ratio | | | [facility] | | | | | | MEDICAL | | | | | | CENTER - | | | | | | LABORATORY | | + + + + + + | BUN/Creatin | 10.3 | | [facility] | | | ine Ratio | | | [facility] | | | | | | MEDICAL [...] | [address] | [place] | [phone] | | [facility] | | [address] | | | - LABORATORY | | | | + + + + + CBC with Differential (04/05/2019 9:13 PM PDT) + + + + + + | Component | Value | Ref Range | Performed | Pathologist | | | | | At | Signature | + + + + + + | WBC | 5.6 | 4.0 - 11.0 K/uL | [facility] | [facility] | | | | | | CENTER - | | | | | | LABORATORY | | + + + + + + | RBC | 3.55 (L) | 4.30 - 5.70 | [facility] | | | | | M/uL | [facility] | | | | | | MEDICAL | | | | | | CENTER - | | | | | | LABORATORY | | + + + + + + | Hemoglobin | 11.0 (L) | 13.5 - 18.0 | [facility] | | | | | g/dL | [facility] | | | | | | MEDICAL | | | | | | CENTER - | | | | | | LABORATORY | | + + + + + + | Hematocrit | 33.7 (L) | 40.0 - 51.0 % | [facility] | | | | | | [facility] | | | | | | MEDICAL | | | | | | CENTER - | | | | | | LABORATORY | | + + + + + + | MCV | 94.9 | 83.0 - 101.0 fL | [facility] | | | | | | [facility] | | | | | | MEDICAL | | | | | | CENTER - | | | | | | LABORATORY | | + + + + + + | MCH | 31.0 | 28.0 - 35.0 pg | [facility] | | | | | | [facility] | | | | | | MEDICAL | | | | | | CENTER - | | | | | | LABORATORY | | + + + + + + | MCHC | 32.6 | 32.0 - 36.0 | [facility] | | | | | g/dL | [facility] | | | | | | MEDICAL | | | | | | CENTER - | | | | | | LABORATORY | | + + + + + + | RDW-CV | 12.1 | <15.0 % | [facility] | | | | | | [facility] | | | | | | MEDICAL | | | | | | CENTER - | | | | | | LABORATORY | | + + + + + + | RDW-SD | 42.4 | 35.1 - 46.3 fL | [facility] | | | | | | [facility] | | | | | | MEDICAL | | | | | | CENTER - | | | | | | LABORATORY | | + + + + + + | Platelet | 143 | 140 - 440 K/uL | [facility] | | | Count | | | [facility] | | | | | | MEDICAL | | | | | | CENTER - | | | | | | LABORATORY | | + + + + + + | MPV | 10.8 | 6.5 - 12.4 fL | [facility] | | | | | | [facility] | | | | | | MEDICAL | | | | | | CENTER - | | | | | | LABORATORY | | + + + + + + | % | 53.6 | 45.0 - 82.0 % | [facility] | | | Neutrophils | | | [facility] | | | | | | MEDICAL | | | | | | CENTER - | | | | | | LABORATORY | | + + + + + + | % | 27.9 | 20.0 - 45.0 % | [facility] | | | Lymphocytes | | | [facility] | | | | | | MEDICAL | | | | | | CENTER - | | | | | | LABORATORY | | + + + + + + | % Monocytes | 14.3 (H) | 4.0 - 12.0 % | [facility] | | | | | | [facility] | | | | | | MEDICAL | | | | | | CENTER - | | | | | | LABORATORY | | + + + + + + | % | 3.4 | 0.0 - 5.0 % | [facility] | | | Eosinophils | | | [facility] | | | | | | MEDICAL | | | | | | CENTER - | | | | | | LABORATORY | | + + + + + + | % Basophils | 0.4 | 0.0 - 1.0 % | [facility] | | | | | | [facility] | | | | | | MEDICAL | | | | | | CENTER - | | | | | | LABORATORY | | + + + + + + | % Immature | 0.4 | 0.0 - 0.4 % | [facility] | | | Granulocyte | | | [facility] | | | s | | | MEDICAL | | | | | | CENTER - | | | | | | LABORATORY | | + + + + + + | Absolute | 3.01 | 1.80 - 8.50 | [facility] | | | Neutrophils | | K/uL | [facility] | | | | | | MEDICAL | | | | | | CENTER - | | | | | | LABORATORY | | + + + + + + | Absolute | 1.56 | 0.60 - 3.20 | [facility] | | | Lymphocytes | | K/uL | [facility] | | | | | | MEDICAL | | | | | | CENTER - | | | | | | LABORATORY | | + + + + + + | Absolute | 0.80 | 0.00 - 1.00 | [facility] | | | Monocytes | | K/uL | [facility] | | | | | | MEDICAL | | | | | | CENTER - | | | | | | LABORATORY | | + + + + + + | Absolute | 0.19 | 0.00 - 0.40 | [facility] | | | Eosinophils | | K/uL | [facility] | | | | | | MEDICAL | | | | | | CENTER - | | | | | | LABORATORY | | + + + + + + | Absolute | 0.02 | 0.00 - 0.10 | [facility] | | | Basophils | | K/uL | [facility] | | | | | | MEDICAL | | | | | | CENTER - | | | | | | LABORATORY | | + + + + + + | Absolute | 0.02 | 0.00 - 0.03 | [facility] | | | Immature | | K/uL | [facility] | | | Granulocyte | | | MEDICAL | | | s | | | CENTER - | | | | | | LABORATORY | | + + + + + + | % nRBC | 0 | 0 - 2 per 100 | [facility] | | | | | WBCs | [facility] | | | | | | MEDICAL | | | | | | CENTER - | | | | | | LABORATORY | | + + + + + + | Absolute | 0.00 | 0.00 - 0.01 | [facility] | | | nRBC | | K/uL | [facility] | | | | | | MEDICAL [...] + + | [facility] | [address] | [place] | [phone] | | [facility] | | [address] | | | - LABORATORY | | | | + + + + + ECG 12 lead (04/05/2019 9:07 PM PDT) + + + + + + | Component | Value | Ref Range | Performed | Pathologist | | | | | At | Signature | + + + + + + | VENTRICULAR | 77 | BPM | [facility] | | | RATE EKG | | | | | + + + + + + | ATRIAL RATE | 77 | BPM | [facility] | | + + + + + + | P-R | 132 | ms | [facility] | | | INTERVAL | | | | | + + + + + + | QRS | 86 | ms | [facility] | | | DURATION | | | | | + + + + + + | Q-T | 398 | ms | [facility] | | | INTERVAL | | | | | + + + + + + | Q-T | 450 | ms | [facility] | | | INTERVAL | | | | | | (CORRECTED) | | | | | + + + + + + | P WAVE AXIS | 70 | degrees | [facility] | | + + + + + + | QRS AXIS | 40 | degrees | [facility] | | + + + + + + | T AXIS | 74 | degrees | [facility] | | + + + + + + | INTERPRETAT | Normal sinus | | [facility] | | | ION TEXT | rhythmNormal ECGWhen | | | | | | compared with ECG of | | | | | | 15-NOV-2018 14:20,QRS | | | | | | axis has shifted | | | | | | rightwardConfirmed by | | | | | | NINFA TORRES MD ([id number]) | | | | | | on 04/07/2019 6:53:41 AM | | | | + + [...] | | | + +---------+ + + POC Glucose (04/05/2019 9:04 PM PDT) + +---------+ + + + | Component | Value | Ref Range | Performed | Pathologist | | | | | At | Signature | + +---------+ + + + | Glucose, | 151 (H) | 70 - 109 mg/dL | [facility] | | | POC | | | [facility] | | | | | | MEDICAL | | | | | | CENTER - | | | | | | LABORATORY | | + +---------+ + + + + + | Specimen | + + | Blood | + + + + + + + | Performing | Address | City/State/Zipcode | Phone Number | | Organization | | | | + + + + + | [facility] | [address] | [place] | [phone] | | [facility] | | [address] | | | - LABORATORY | | | | + + + + + CT Angiogram Head Neck Acute Stroke (04/05/2019 8:59 PM PDT) + + | Specimen | + + | | + + + + + | Narrative | Performed At | + + + | CT ANGIOGRAM HEAD NECK ACUTE STROKE 04/05/2019 8:48 PM HISTORY: | [facility] | | stroke. COMPARISON: 02/12/2017 PROTOCOL: Axial CT images of the | | | head were obtained precontrast. Thin section axial CTA images of the | | | head and neck were acquired after 105 mL Omnipaque 350. Coronal and | | | sagittal reformations were obtained. HEAD FINDINGS: BRAIN: | | | No areas of increased attenuation to suggest intracranial | | | hemorrhage. There is no mass, mass effect, or midline shift. There | | | are no abnormal extra-axial fluid or air collections. There is | | | preservation of the leo-white differentiation at this time. | | | Ventricles, sulci and cisterns are unremarkable for age. There is | | | no significant white matter disease. Remote appearing infarct is seen | | | in the left basal ganglia/thalamus. SCALP/ CALVARIUM: The scalp | | | and skull are intact and are unremarkable. SINUSES / ORBITS/ | | | MASTOIDS: Severe mucosal inflammatory disease involving the ethmoid | | | air cells and right maxillary sinus. Mastoid air cells are patent. | | | The globes and retroconal contents are intact and without evidence of | | | acute abnormality. CTA HEAD FINDINGS: Right Carotid: The | | | petrous, cavernous, and supraclinoid segments are patent. There is | | | normal branching of the MCA and SAUMYA. Left Carotid: The petrous, | | | cavernous, and supraclinoid segments are patent. There is normal | | | branching of the MCA and SAUMYA. Vertebrobasilar: Small 3.1 mm | | | saccular aneurysm is seen at the origin of the left PICA from the | | | left V4 segment on series 6, image 157. No evidence of dissection or | | | occlusion. CTA NECK FINDINGS: Aorta and Branches: The aorta and | | | proximal branches are patent. Right Carotid: The common, internal, | | | and external carotid arteries are patent with no significant | | | stenosis. Left Carotid: The common, internal, and external carotid | | | arteries are patent with no significant stenosis. Vertebrals: | | | The bilateral vertebral arteries are patent. The nasopharynx, | | | oropharynx, epiglottis, hypopharynx, and larynx are normal. Multiple | | | severe/large periapical root abscesses. One of the periapical root | | | abscesses is seen to erode through the floor of the right maxillary | | | sinus and may be a cause for the severe right-sided maxillary sinus | | | disease. Extensive dental caries. The parapharyngeal, | | | retropharyngeal, and college specialist spaces are normal. The parotid glands | | | and submandibular glands are normal. The thyroid is unremarkable. No | | | enlarged lymph nodes are visualized of the neck. There are no | | | acute osseous abnormalities. The upper chest shows no acute | | | findings. IMPRESSION - No acute intracranial abnormality | | | identified. Negative CTA of the head and neck or any acute | | | occlusion or dissection. Small 3.1 mm saccular aneurysm is seen at | | | the origin of the left PICA from the left V4 segment . Multiple | | | severe/large periapical root abscesses. One of the periapical root | | | abscesses is seen to erode through the floor of the right maxillary | | | sinus and may be a cause for the severe right-sided maxillary sinus | | | and ethmoid air cell mucosal thickening/inflammatory changes. | | | Dictated and Signed by: Lennox Dejesus MD Electronically signed: | | | 04/05/2019 9:13 PM | | + + + + + | Procedure Note | + + | [facility], Rad Results In - 04/05/2019 9:[address] ANGIOGRAM HEAD NECK ACUTE STROKE | | 04/05/2019 8:48 PMHISTORY: stroke.COMPARISON: 02/12/2017PROTOCOL: Axial CT images of the | | head were obtained precontrast. Thin sectionaxial CTA images of the head and neck were | | acquired after 105 mL Omnipaque 350.Coronal and sagittal reformations were obtained.HEAD | | FINDINGS:BRAIN: No areas of increased attenuation to suggest intracranial hemorrhage. | | There is no mass, mass effect, or midline shift. There are no abnormalextra-axial fluid | | or air collections. There is preservation of the leo-whitedifferentiation at this | | time. Ventricles, sulci and cisterns are unremarkablefor age. There is no significant | | white matter disease. Remote appearing infarctis seen in the left basal | | ganglia/thalamus.SCALP/ CALVARIUM: The scalp and skull are intact and are | | unremarkable.SINUSES / ORBITS/ MASTOIDS: Severe mucosal inflammatory disease involving | | theethmoid air cells and right maxillary sinus. Mastoid air cells are patent.The globes | | and retroconal contents are intact and without evidence of acuteabnormality. CTA HEAD | | FINDINGS:Right Carotid: The petrous, cavernous, and supraclinoid segments are | | patent.There is normal branching of the MCA and SAUMYA.Left Carotid: The petrous, | | cavernous, and supraclinoid segments are patent.There is normal branching of the MCA and | | SAUMYA.Vertebrobasilar: Small 3.1 mm saccular aneurysm is seen at the origin of theleft | | PICA from the left V4 segment on series 6, image 157. No evidence ofdissection or | | occlusion.CTA NECK FINDINGS:Aorta and Branches: The aorta and proximal branches are | | patent.Right Carotid: The common, internal, and external carotid arteries are patentwith | | no significant stenosis.Left Carotid: The common, internal, and external carotid | | arteries are patentwith no significant stenosis.Vertebrals: The bilateral vertebral | | arteries are patent.The nasopharynx, oropharynx, epiglottis, hypopharynx, and larynx are | | normal.Multiple severe/large periapical root abscesses. One of the periapical | | rootabscesses is seen to erode through the floor of the right maxillary sinus andmay be | | a cause for the severe right-sided maxillary sinus disease. Extensivedental caries. The | | parapharyngeal, retropharyngeal, and college specialist spaces arenormal. The parotid glands and | | submandibular glands are normal. The thyroid isunremarkable. No enlarged lymph nodes | | are visualized of the neck.There are no acute osseous abnormalities.The upper chest | | shows no acute findings.IMPRESSION -No acute intracranial abnormality | | identified.Negative CTA of the head and neck or any acute occlusion or dissection.Small | | 3.1 mm saccular aneurysm is seen at the origin of the left PICA from theleft V4 segment | | .Multiple severe/large periapical root abscesses. One of the periapical rootabscesses is | | seen to erode through the floor of the right maxillary sinus andmay be a cause for the | | severe right-sided maxillary sinus and ethmoid air cellmucosal thickening/inflammatory | | changes.Dictated and Signed by: Lennox Dejesus MD Electronically signed: 04/05/2019 9:13 | | PM | | | |CTA NECK FINDINGS: | |Aorta and Branches: The aorta and proximal branches are patent. | | | |Right Carotid: The common, internal, and external carotid arteries are patent | |with no significant stenosis. | | | |Left Carotid: The common, internal, and external carotid arteries are patent | |with no significant stenosis. | | | |Vertebrals: The bilateral vertebral arteries are patent. | | | |The nasopharynx, oropharynx, epiglottis, hypopharynx, and larynx are normal. | |Multiple severe/large periapical root abscesses. One of the periapical root | |abscesses is seen to erode through the floor of the right maxillary sinus and | |may be a cause for the severe right-sided maxillary sinus disease. Extensive | |dental caries. The parapharyngeal, retropharyngeal, and college specialist spaces are | |normal. The parotid glands and submandibular glands are normal. The thyroid is | |unremarkable. No enlarged lymph nodes are visualized of the neck. | | | |There are no acute osseous abnormalities. | | | |The upper chest shows no acute findings. | | | |IMPRESSION - | |No acute intracranial abnormality identified. | | | |Negative CTA of the head and neck or any acute occlusion or dissection. 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 | | | |Multiple severe/large periapical root abscesses. One of the periapical root | |abscesses is seen to erode through the floor of the right maxillary sinus and | |may be a cause for the severe right-sided maxillary sinus and ethmoid air cell | |mucosal thickening/inflammatory changes. 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, unspecified | + + | Hypertensive emergency Unspecified essential hypertension | + + | Essential hypertension with goal blood pressure less than 130/80 | + + | Poor dentition Unspecified disorder of the teeth and supporting structures | + + | Acute recurrent maxillary sinusitis Acute maxillary sinusitis | + + documented in this encounter Administered Medications + +--------+ +--------+------+------+ | Medication Order | MAR | Action | Dose | Rate | Site | | | Action | Date | | | | + +--------+ +--------+------+------+ | acetaminophen (TYLENOL) tablet | Given | 04/09/20 | 650 mg | | | | 650 mg 650 mg, Oral, EVERY 4 | | 19 12:31 | | | | | HOURS PRN, Pain, Fever, | | AM PDT | | | | | temperature > or equal to 38.0 C | | | | | | | (100.4 F), Starting 04/06/19 | | | | | | | at 0240 | | | | | | + +--------+ +--------+------+------+ +-------+ +--------+---+---+ | Given | 04/08/20 | 650 mg | | | | | 19 8:19 | | | | | | PM PDT | | | | +-------+ +--------+---+---+ | Given | 04/08/20 | 650 mg | | | | | 19 4:17 | | | | | | AM PDT | | | | +-------+ +--------+---+---+ +---+---+ | | | +---+---+ + +-------+ + +---+---+ | adult multivitamin with | Given | 04/10/20 | 1 tablet | | | | minerals/iron tablet 1 tablet 1 | | 19 8:35 | | | | | tablet, Oral, DAILY, First dose | | AM PDT | | | | | on Thu04/06/19 at 0900 | | | | | | + +-------+ + +---+---+ +-------+ + +---+---+ | Given | 04/09/20 | 1 tablet | | | | | 19 9:00 | | | | | | AM PDT | | | | +-------+ + +---+---+ | Given | 04/08/20 | 1 tablet | | | | | 19 10:26 | | | | | | AM PDT | | | | +-------+ + +---+---+ +---+---+ | | | +---+---+ + +-------+ +-------+---+---+ | albuterol-ipratropium 2.5-0.5 | Given | 04/10/20 | 3 mLs | | | | mg/3 mL nebulizer solution 3 mL | | 19 7:48 | | | | | 3 mL, Nebulization, RT BID, First | | AM PDT | | | | | dose on Thu04/08/19 at 2100, | | | | | | | Sinus congestion/bronchitis, | | | | | | + +-------+ +-------+---+---+ +-------+ +-------+---+---+ | Given | 04/09/20 | 3 mLs | | | | | 19 8:53 | | | | | | PM PDT | | | | +-------+ +-------+---+---+ | Given | 04/09/20 | 3 mLs | | | | | 19 8:59 | | | | | | AM PDT | | | | +-------+ +-------+---+---+ +---+---+ | | | +---+---+ + +-------+ + +---+---+ | amoxicillin-clavulanate | Given | 04/12/20 | 1 tablet | | | | (AUGMENTIN) 875-125 mg per tablet | | 19 8:27 | | | | | 1 tablet 1 tablet, Oral, 2 | | AM PDT | | | | | TIMES DAILY, First dose on Sat | | | | | | | 04/09/19 at 1100, Indications: | | | | | | | sinusitis dental infection | | | | | | + +-------+ + +---+---+ +-------+ + +---+---+ | Given | 04/11/20 | 1 tablet | | | | | 19 8:29 | | | | | | PM PDT | | | | +-------+ + +---+---+ | Given | 04/11/20 | 1 tablet | | | | | 19 9:15 | | | | | | AM PDT | | | | +-------+ + +---+---+ +---+---+ | | | +---+---+ + +---------+ +-----+-------+---+ | ampicillin-sulbactam (UNASYN) 3 | New Bag | 04/09/20 | 3 g | 200 | | | g in sodium chloride 0.9% 100 mL | | 19 5:30 | | mL/hr | | | IVPB 3 g, Intravenous, | | AM PDT | | | | | Administer over 30 Minutes, EVERY | | | | | | | 6 HOURS INTERVAL, First dose on | | | | | | | [facility] 04/07/19 at 2300, Pharmacist | | | | | | | may adjust Activate system and | | | | | | | mix before use., Indications: | | | | | | | Dental Disease, sinusitis | | | | | | + +---------+ +-----+-------+---+ +---------+ +-----+-------+---+ | New Bag | 04/08/20 | 3 g | 200 | | | | 19 11:55 | | mL/hr | | | | PM PDT | | | | +---------+ +-----+-------+---+ | New Bag | 04/08/20 | 3 g | 200 | | | | 19 6:13 | | mL/hr | | | | PM PDT | | | | +---------+ +-----+-------+---+ +---+---+ | | | +---+---+ + +-------+ +--------+---+---+ | aspirin EC tablet 325 mg 325 | Given | 04/12/20 | 325 mg | | | | mg, Oral, DAILY, First dose on | | 19 8:27 | | | | | 04/06/19 at 0300, Do not cut | | AM PDT | | | | | or crush., | | | | | | + +-------+ +--------+---+---+ +-------+ +--------+---+---+ | Given | 04/11/20 | 325 mg | | | | | 19 9:16 | | | | | | AM PDT | | | | +-------+ +--------+---+---+ | Given | 04/10/20 | 325 mg | | | | | 19 8:35 | | | | | | AM PDT | | | | +-------+ +--------+---+---+ +---+---+ | | | +---+---+ + +-------+ +-------+---+---+ | atorvaSTATin (LIPITOR) tablet | Given | 04/12/20 | 80 mg | | | | 80 mg 80 mg, Oral, DAILY, First | | 19 8:27 | | | | | dose on Thu04/06/19 at 0900 | | AM PDT | | | | + +-------+ +-------+---+---+ +-------+ +-------+---+---+ | Given | 04/11/20 | 80 mg | | | | | 19 9:15 | | | | | | AM PDT | | | | +-------+ +-------+---+---+ | Given | 04/10/20 | 80 mg | | | | | 19 8:35 | | | | | | AM PDT | | | | +-------+ +-------+---+---+ +---+---+ | | | +---+---+ + +-------+ +-------+---+ + | enoxaparin (LOVENOX) 40 mg/0.4 | Given | 04/12/20 | 40 mg | | Abdomen- | | mL injection 40 mg 40 mg, | | 19 8:27 | | | RUQ | | Subcutaneous, EVERY 24 HOURS | | AM PDT | | | | | (Daily), First dose on Thu | | | | | | | 04/06/19 at 0900 | | | | | | + +-------+ +-------+---+ + +-------+ +-------+---+ + | Given | 04/11/20 | 40 mg | | Abdomen- | | | 19 9:16 | | | LUQ | | | AM PDT | | | | +-------+ +-------+---+ + | Given | 04/10/20 | 40 mg | | Abdomen- | | | 19 8:35 | | | LLQ | | | AM PDT | | | | +-------+ +-------+---+ + +---+---+ | | | +---+---+ + +-------+ +-------+---+---+ | famotidine (PEPCID) tablet 20 | Given | 04/12/20 | 20 mg | | | | mg 20 mg, Oral, 2 TIMES DAILY, | | 19 8:27 | | | | | First dose on Thu04/06/19 at 0900 | | AM PDT | | | | + +-------+ +-------+---+---+ +-------+ +-------+---+---+ | Given | 04/11/20 | 20 mg | | | | | 19 8:29 | | | | | | PM PDT | | | | +-------+ +-------+---+---+ | Given | 04/11/20 | 20 mg | | | | | 19 9:15 | | | | | | AM PDT | | | | +-------+ +-------+---+---+ +---+---+ | | | +---+---+ + +---------+ +------+--------+---+ | folic acid 1 mg, thiamine | New Bag | 04/06/20 | 1 mg | 102.4 | | | (VITAMIN B-1) 100 mg in sodium | | 19 9:19 | | mL/hr | | | chloride 0.9% 50 mL IVPB 1 mg, | | AM PDT | | | | | Intravenous, Administer over 30 | | | | | | | Minutes, DAILY, First dose on Thu | | | | | | | 04/06/19 at 0900, For 3 doses, | | | | | | | give 1st dose prior to any food | | | | | | | or dextrose containing IV., | | | | | | + +---------+ +------+--------+---+ +---+---+ | | | +---+---+ + +-------+ +------+---+---+ | folic acid tablet 1 mg 1 mg, | Given | 04/10/20 | 1 mg | | | | Oral, DAILY, First dose on Jeanine | | 19 8:35 | | | | | 04/07/19 at 0900 | | AM PDT | | | | + +-------+ +------+---+---+ +-------+ +------+---+---+ | Given | 04/09/20 | 1 mg | | | | | 19 8:55 | | | | | | AM PDT | | | | +-------+ +------+---+---+ | Given | 04/08/20 | 1 mg | | | | | 19 10:26 | | | | | | AM PDT | | | | +-------+ +------+---+---+ +---+---+ | | | +---+---+ + +-------+ +---------+---+---+ | iohexol (OMNIPAQUE 350) 350 | Given | 04/05/20 | 105 mLs | | | | mg/mL injection 105 mL 105 mL, | | 19 8:59 | | | | | Intravenous, ONCE PRN, Other, | | PM PDT | | | | | Starting [facility] 04/05/19 at 2058, For | | | | | | | 1 dose, Cat Scanner | | | | | | + +-------+ +---------+---+---+ +---+---+ | | | +---+---+ + +-------+ +-------+---+---+ | labetalol (TRANDATE) 5 mg/mL | Given | 04/05/20 | 10 mg | | | | injection 10 mg 10 mg, | | 19 9:07 | | | | | Intravenous, EVERY 10 MIN PRN, | | PM PDT | | | | | systolic greater than 180, | | | | | | | Starting [facility] 04/05/19 at 2047, For | | | | | | | 5 doses | | | | | | + +-------+ +-------+---+---+ +---+---+ | | | +---+---+ + +-------+ +-------+---+---+ | labetalol (TRANDATE) 5 mg/mL | Given | 04/11/20 | 10 mg | | | | injection 10-20 mg 10-20 mg, | | 19 2:17 | | | | | Intravenous, EVERY 6 HOURS PRN, | | AM PDT | | | | | for sbp>180 or dbp>100, hold for | | | | | | | HR<60, Starting 04/11/19 at | | | | | | | 0205 | | | | | | + +-------+ +-------+---+---+ +---+---+ | | | +---+---+ + +-------+ +-------+---+---+ | lisinopril (PRINIVIL, ZESTRIL) | Given | 04/10/20 | 10 mg | | | | tablet 10 mg 10 mg, Oral, DAILY, | | 19 8:35 | | | | | First dose (after last | | AM PDT | | | | | modification) on Thu04/08/19 at | | | | | | | 0900, Hold for sbp < 125, | | | | | | + +-------+ +-------+---+---+ +-------+ +-------+---+---+ | Given | 04/09/20 | 10 mg | | | | | 19 8:55 | | | | | | AM PDT | | | | +-------+ +-------+---+---+ | Given | 04/08/20 | 10 mg | | | | | 19 10:26 | | | | | | AM PDT | | | | +-------+ +-------+---+---+ +---+---+ | | | +---+---+ + +-------+ +-------+---+---+ | lisinopril (PRINIVIL, ZESTRIL) | Given | 04/12/20 | 20 mg | | | | tablet 20 mg 20 mg, Oral, DAILY, | | 19 8:27 | | | | | First dose (after last | | AM PDT | | | | | modification) on Thu04/11/19 at | | | | | | | 0900, Hold for sbp < 125, | | | | | | + +-------+ +-------+---+---+ +-------+ +-------+---+---+ | Given | 04/11/20 | 20 mg | | | | | 19 9:15 | | | | | | AM PDT | | | | +-------+ +-------+---+---+ +---+---+ | | | +---+---+ + +-------+ +------+---+---+ | lisinopril (PRINIVIL, ZESTRIL) | Given | 04/07/20 | 5 mg | | | | tablet 5 mg 5 mg, Oral, DAILY, | | 19 4:35 | | | | | First dose on Thu04/07/19 at | | PM PDT | | | | | 1600, Hold for sbp < 150, | | | | | | + +-------+ +------+---+---+ + +---+ | | | + +---+ | LORazepam (ATIVAN) injection | | | 1-4 mg 1-4 mg, Intravenous, PRN, | | | Withdrawal Symptoms, Starting | | | Thu04/06/19 at 0240, CIWA less | | | than 9: No dose, reassess in 4 | | | hours CIWA 9-14: Give 1 mg, | | | reassess in 2 hours CIWA 15-20: | | | Give 2 mg, reassess in 1 hour | | | CIWA 21-25: Give 3 mg, reassess | | | in 30 minutes CIWA greater than | | | 25: 4 mg, reassess in 30 minutes, | | | | | + +---+ | | | + +---+ + +-------+ +------+---+---+ | LORazepam (ATIVAN) injection 2 | Given | 04/08/20 | 2 mg | | | | mg 2 mg, Intravenous, ONCE PRN, | | 19 2:19 | | | | | CT / MRI, Starting 04/08/19 at | | PM PDT | | | | | 1410, For 1 dose | | | | | | + +-------+ +------+---+---+ +---+---+ | | | +---+---+ + +---------+ +-------+-------+---+ | niCARdipine in saline (CARDENE) | New Bag | 04/05/20 | 2.5 | 12.5 | | | 0.2 mg/mL infusion 0-15 mg/hr | | 19 9:19 | mg/hr | mL/hr | | | (0-75 mL/hr), at 0-75 mL/hr, | | PM PDT | | | | | Intravenous, TITRATED, Starting | | | | | | | 8/13/19 at 2055, Protect from | | | | | | | light., Titration Instruction: | | | | | | | See below, Goal: SBP less than | | | | | | | 160, Initial dose: 5 mg/hr, | | | | | | | Increase rate by: 2.5 mg/hr every | | | | | | | 5 minutes., Decrease rate by: | | | | | | | 2.5 mg/hr every 5 minutes., *: | | | | | | | Titrate drug per order as | | | | | | | tolerated. Titration may vary | | | | | | | based on the patient | | | | | | | | | | | | | | s critical condition. | | | | | | + +---------+ +-------+-------+---+ +---+---+ | | | +---+---+ + + + +---------+---------+---+ | niCARdipine in saline (CARDENE) | Rate/Dos | 04/05/20 | 0 mg/hr | 0 mL/hr | | | 0.2 mg/mL infusion 0-15 mg/hr | e Change | 19 10:46 | | | | | (0-75 mL/hr), at 0-75 mL/hr, | | PM PDT | | | | | Intravenous, TITRATED, Starting | | | | | | | Thu04/05/19 at 2125, Protect from | | | | | | | light., Titration Instruction: | | | | | | | See below, Goal: Other, Other | | | | | | | goal: SBP less than 180, Initial | | | | | | | dose: 2.5 mg/hr, Increase rate | | | | | | | by: 2.5 mg/hr every 5 minutes., | | | | | | | Decrease rate by: 2.5 mg/hr every | | | | | | | 5 minutes., *: Titrate drug per | | | | | | | order as tolerated. Titration may | | | | | | | vary based on the patient | | | | | | | | | | | | | | s critical condition. | | | | | | + + + +---------+---------+---+ +---------+ +-------+-------+---+ | New Bag | 04/05/20 | 2.5 | 12.5 | | | | 19 9:24 | mg/hr | mL/hr | | | | PM PDT | | | | +---------+ +-------+-------+---+ +---+---+ | | | +---+---+ + +------+ +--------+-------+---+ | sodium chloride 0.9% (NS) bolus | Push | 04/05/20 | 75 mLs | 4500 | | | 75 mL 75 mL, Intravenous, | | 19 8:59 | | mL/hr | | | Administer over 1 Minutes, ONCE | | PM PDT | | | | | PRN, for contrast study, Starting | | | | | | | Thu04/05/19 at 2058, For 1 dose, | | | | | | | May infuse at a different rate | | | | | | | per protocol., Cat Scanner | | | | | | + +------+ +--------+-------+---+ +---+---+ | | | +---+---+ + +-------+ +--------+---+ + | thiamine (VITAMIN B-1) | Given | 04/05/20 | 100 mg | | Deltoid- | | injection 100 mg 100 mg, | | 19 10:48 | | | Left | | Intramuscular, ONCE, Thu04/05/19 | | PM PDT | | | | | at 2054, For 1 dose | | | | | | + +-------+ +--------+---+ + +---+---+ | | | +---+---+ + +-------+ +--------+---+---+ | thiamine (VITAMIN B-1) tablet | Given | 04/10/20 | 100 mg | | | | 100 mg 100 mg, Oral, DAILY, | | 19 8:35 | | | | | First dose on [facility] 04/07/19 at 0900 | | AM PDT | | | | + +-------+ +--------+---+---+ +-------+ +--------+---+---+ | Given | 04/09/20 | 100 mg | | | | | 19 8:55 | | | | | | AM PDT | | | | +-------+ +--------+---+---+ | Given | 04/08/20 | 100 mg | | | | | 19 10:26 | | | | | | AM PDT | | | | +-------+ +--------+---+---+ +---+---+ | | | +---+---+ documented in this encounter
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
--- OUTSIDE RECORDS SUMMARY | ~2019-08-11 | XMS | Encounter Summary ---
Demographics + + + | Address | NEED ADDRESS | | | [place] [address] | + + + | Home Phone | | + + + | Preferred Language | Unknown | + + + | Marital Status | Single | + + + | Religion Affiliation | Unknown | + + + | Race | Unknown | + + + | Ethnic Group | Unknown | + + + Author + + + | Author | [facility] | | | and [place] | + + + | Organization | [facility] | | | [...] Team Providers + +------+ + | Care Employment And Claims Aide Name | Role | Phone | + +------+ + | No, Physician | PCP | Unavailable | + +------+ + Reason for Referral Evaluate & Treat (Routine) +--------+ + + + + + | Status | Reason | Specialty | Diagnoses / | Referred By | Referred To | | | | | Procedures | Contact | Contact | +--------+ + + + + + | Closed | Specialty | Cardiology | Diagnoses | [place], | Debi, | | | Services | | Chest pain | Vicente Retana MD | MD Nell | | | Required | | in adult | [address] | | | | Tobacco | [address] | [address] | | | | | abuse | [place], | [place], | | | | | | [place] [address] | [place] [address] | | | | | | Phone: | Phone: | | | | | | [phone] | [phone] | | | | | | Fax: | Fax: | | | | | | [phone] | [phone] | +--------+ + + + + + Reason for Visit + + + | Reason | Comments | + + + | Chest Pain | | + + + | Arm Pain | | + + + Encounter Details +--------+ + + + + | Date | Type | Department | Care Team | Description | +--------+ + + + + | 03/03/ | Emergency | [facility] | [place], | Chest pain in adult | | 2017 | | [facility] | MD [address] | (Primary Dx); | | | | CENTER [address] | [place], [place] | Tobacco abuse | | | | [place], [place] | [address] | | | | | [address] | | | | | | [phone] | | | +--------+ + + + + Social History + + + +--------+------+ | Tobacco Use | Types | Packs/Day | Years | Date | | | | | Used | | + + + +--------+------+ | Current Every Day | Cigarettes | 0.25 | | | | Smoker | | | | | + + + +--------+------+ + + +---------+ + | Alcohol [...] + + + | Blood Pressure | 158/102 | 03/03/2017 6:57 PM | | | | | PDT | | + + + + + | Pulse | 87 | 03/03/2017 6:57 PM | | | | | PDT | | + + + + + | Temperature | 36.8 C (98.2 F) | 03/03/2017 3:38 PM | | | | | PDT | | + + + + + | Respiratory Rate | 20 | 03/03/2017 6:57 PM | | | | | PDT | | + + + + + | Oxygen Saturation | 94% | 03/03/2017 5:57 PM | | | | | PDT | | + + + + + | Inhaled Oxygen | - | - | | | Concentration | | | | + + + + + | Weight | 106.1 kg (234 lb) | 03/03/2017 3:38 PM | | | | | PDT | | + + + + + | Height | 182.9 cm (6') | 03/03/2017 3:38 PM | | | | | PDT | | + + + + + | Body Mass Index | 31.74 | 03/03/2017 3:38 PM | | | | | PDT | | + + + + + documented in this encounter Discharge Instructions AttachmentsThe following attachments cannot be sent through Care Everywhere.CHEST PAIN, NON CARDIAC (UGANDAN)documented in this encounter Medications at Time of Discharge + + + +---------+--------+ + | Medication | Sig | Dispensed | Refills | Start | End Date | | | | | | Date | | + + + +---------+--------+ + | aspirin 325 mg | Take 325 mg by mouth | | 0 | | | | tablet | as needed for Pain. | | | | 7 | + + + +---------+--------+ + documented as of this encounter Plan of Treatment + + +--------+ + + | Name | Type | Priori | Associated Diagnoses | Order Schedule | | | | ty | | | + + +--------+ + + | * [facility] | Outpatient | Routin | Chest pain in | Ordered: 03/03/2017 | | Cardiology - AMB | Referral | e | adult Tobacco abuse | | | Referral | | | | | + + +--------+ + + documented as of this encounter Procedures + +--------+ + + + | Procedure Name | Priori | Date/Time | Associated Diagnosis | Comments | | | ty | | | | + +--------+ + + + | TROPONIN I | STAT | 03/03/2017 | | Results for this | | | | 6:20 PM | | procedure are in the | | | | PDT | | results section. | + +--------+ + + + | EXTRA GOLD TOP TUBE | Routin | 03/03/2017 | | Results for this | | | e | 3:47 PM | | procedure are in the | | | | PDT | | results section. | + +--------+ + + + | EXTRA BLUE TOP TUBE | Routin | 03/03/2017 | | Results for this | | | e | 3:47 PM | | procedure are in the | | | | PDT | | results section. | + +--------+ + + + | TROPONIN I | STAT | 03/03/2017 | | Results for this | | | | 3:45 PM | | procedure are in the | | | | PDT | | results section. | + +--------+ + + + | CBC WITH | STAT | 03/03/2017 | | Results for this | | DIFFERENTIAL | | 3:45 PM | | procedure are in the | | | | PDT | | results section. | + +--------+ + + + | B TYPE NATRIURETIC | STAT | 03/03/2017 | | Results for this | | PEPTIDE | | 3:45 PM | | procedure are in the | | | | PDT | | results section. | + +--------+ + + + | COMPREHENSIVE | STAT | 03/03/2017 | | Results for this | | METABOLIC PANEL | | 3:45 PM | | procedure are in the | | | | PDT | | results section. | + +--------+ + + + | ECG 12 LEAD | STAT | 03/03/2017 | | Results for this | | | | 3:37 PM | | procedure are in the | | | | PDT | | results section. | + +--------+ + + + | OXYGEN THERAPY | STAT | 03/03/2017 | | | | | | 3:33 PM | | | | | | PDT | | | + +--------+ + + + documented in this encounter Results Troponin I (03/03/2017 6:20 PM PDT) + + + + + + | Component | Value | Ref Range | Performed | Pathologist | | | | | At | Signature | + + + + + + | Troponin I | 0.01Comment: Reference | <0.06 ng/mL | [facility] | [...] | | | | | | [employer] | | | | | [...] [address] | [place] | [phone] | | [facility] | | [address] | | | - LABORATORY | | | | + + + + + Extra Gold Top Tube (03/03/2017 3:47 PM PDT) + +-------+ + + + [...] + | [facility] | [address] | [place] | [phone] | | [facility] | | [address] | | | - LABORATORY | | | | + + + + + Extra Blue Top Tube (03/03/2017 3:47 PM PDT) + +-------+ + + + | Component | Value | Ref Range | Performed | Pathologist | | | | | At | Signature | + +-------+ + + + | Extra Blue | Done | | [facility] | | [...] + | [facility] | [address] | [place] | [phone] | | [facility] | | [address] | | | - LABORATORY | | | | + + + + + B Type Natriuretic Peptide (03/03/2017 3:45 PM PDT) + +-------+ + + + | Component | Value | Ref Range | Performed | Pathologist | | | | | At | Signature | + +-------+ + + + | BNP | 85 | <100 pg/mL | [facility] | | | | | [...] [address] | [place] | [phone] | | [facility] | | [address] | | | - LABORATORY | | | | + + + + + Troponin I (03/03/2017 3:45 PM PDT) + + + + + + | Component | Value | Ref Range | Performed | Pathologist | | | | | At | Signature | + + + + + + | Troponin I | 0.01Comment: Reference | <0.06 ng/mL | [facility] | [...] | | | | | | [employer] | | | | | [...] [address] | [place] | [phone] | | [facility] | | [address] | | | - LABORATORY | | | | + + + + + Comprehensive Metabolic Panel (03/03/2017 3:45 PM PDT) + + + + + + | Component | Value | Ref Range | Performed | Pathologist | | | | | At | Signature | + + + + + + | Na | 139 | 136 - 149 | [facility] | | | | | mmol/L | [facility] | | | | | | MEDICAL | | | | | | CENTER - | | | | | | LABORATORY | | + + + + + + | K | 3.5 | 3.5 - 5.1 | [facility] | | | | | mmol/L | [facility] | | | | | | MEDICAL | | | | | | CENTER - | | | | | | LABORATORY | | + + + + + + | Cl | 108 | 98 - 109 mmol/L | [facility] | | | | | | [facility] | | | | | | MEDICAL | | | | | | CENTER - | | | | | | LABORATORY | | + + + + + + | CO2 | 27 | 24 - 31 mmol/L | [facility] [...] + + + + | Glucose | 119 (H) | 70 - 109 mg/dL | [facility] | | | | | | [facility] | | | | | | MEDICAL | | | | | | CENTER - | | | | | | LABORATORY | | + + + + + + | BUN | 10 | 7 - 18 mg/dL | [facility] | | | | | | [facility] | | | | | | MEDICAL | | | | | | CENTER - | | | | | | LABORATORY | | + + + + + + | Creatinine | 0.94 | 0.60 - 1.30 | [facility] | | | | | mg/dL | [facility] | | | | | | MEDICAL | | | | | | CENTER - | | | | | | LABORATORY | | + + + + + + | eGFR if not | >60Comment: GLOMERULAR | >=60 | [facility] | | | | FILTRATION | mL/min/1.73m2 | [facility] | | | [facility] | RATE,ESTIMATED | | MEDICAL | | | | mL/min/1.96c9Ngbs than | | CENTER - | | [...] + + + + | Calcium | 8.8 | 8.3 - 10.5 | [facility] | | | | | mg/dL | [facility] | | | | | | MEDICAL | | | | | | CENTER - | | | | | | LABORATORY | | + + + + + + | Albumin | 3.5 | 3.2 - 5.0 g/dL | [facility] | | | | | | [facility] | | | | | | MEDICAL | | | | | | CENTER - | | | | | | LABORATORY | | + + + + + + | Bilirubin | 0.6Comment: This is an | 0.1 - 1.5 mg/dL | [facility] | | | Total | appended report. These | | [facility] | | | | results have been | | MEDICAL | | | | appended to a previously | | CENTER - | | | | preliminary verified | | LABORATORY | | | | report. | | | | + + + + + + | Total | 6.4 | 6.0 - 7.8 g/dL | [facility] | | | Protein | | | [facility] | | | | | | MEDICAL | | | | | | CENTER - | | | | | | LABORATORY | | + + + + + + | AST | 18Comment: This is an | 10 - 42 U/L | [facility] | | | | appended report. These | | [facility] | | | | results have been | | MEDICAL | | | | appended to a previously | | CENTER - | | | | preliminary verified | | LABORATORY | | | | report. | | | | + + + + + + | ALT | 20Comment: This is an | 6 - 45 U/L | [facility] | | | | appended report. These | | [facility] | | | | results have been | | MEDICAL | | | | appended to a previously | | CENTER - | | | | preliminary verified | | LABORATORY | | | | report. | | | | + + + + + + | Alkaline | 81Comment: This is an | 40 - 110 U/L | [facility] | | | Phosphatase | appended report. These | | [facility] | | | | results have been | | MEDICAL | | | | appended to a previously | | CENTER - | | | | preliminary verified | | LABORATORY | | | | report. | | | | + + + + + + | Globulin | 2.9 | 2.1 - 3.8 g/dL | [facility] [...] + + + + | BUN/Creatin | 10.6 | | [facility] | | | ine Ratio | | | [facility] | [...] [address] | [place] | [phone] | | [facility] | | [address] | | | - LABORATORY | | | | + + + + + CBC with Differential (03/03/2017 3:45 PM PDT) + + + + + + | Component | Value | Ref Range | Performed | Pathologist | | | | | At | Signature | + + + + + + | WBC | 8.1 | 4.0 - 11.0 K/uL | [facility] | | | | | | [facility] | | | | | | MEDICAL | | | | | | CENTER - | | | | | | LABORATORY | | + + + + + + | RBC | 4.91 | 4.30 - 5.70 | [facility] | | | | | M/uL | [facility] | | | | | | MEDICAL | | | | | | CENTER - | | | | | | LABORATORY | | + + + + + + | Hemoglobin | 15.4 | 13.5 - 18.0 | [facility] | | | | | g/dL | [facility] | | | | | | MEDICAL | | | | | | CENTER - | | | | | | LABORATORY | | + + + + + + | Hematocrit | 44.9 | 40.0 - 51.0 % | [facility] | | | | | | [facility] | | | | | | MEDICAL | | | | | | CENTER - | | | | | | LABORATORY | | + + + + + + | MCV | 91.3 | 83.0 - 101.0 fL | [facility] | | | | | | [facility] | | | | | | MEDICAL | | | | | | CENTER - | | | | | | LABORATORY | | + + + + + + | MCH | 31.3 | 28.0 - 35.0 pg | [facility] | | | | | | [facility] | | | | | | MEDICAL | | | | | | CENTER - | | | | | | LABORATORY | | + + + + + + | MCHC | 34.3 | 32.0 - 36.0 | [facility] | [...] + + + + | Platelet | 172 | 140 - 440 K/uL | [facility] | | | Count | | | [facility] | | | | | | MEDICAL | | | | | | CENTER - | | | | | | LABORATORY | | + + + + + + | MPV | 9.3 | fL | [facility] | | | | | | [facility] | | | | | | MEDICAL | | | | | | CENTER - | | | | | | LABORATORY | | + + + + + + | % | 73.3 | 45.0 - 82.0 % | [facility] | | | Neutrophils | | | [facility] | | | | | | MEDICAL | | | | | | CENTER - | | | | | | LABORATORY | | + + + + + + | % | 19.1 (L) | 20.0 - 45.0 % | [facility] | | | Lymphocytes | | | [facility] | | | | | | MEDICAL | | | | | | CENTER - | | | | | | LABORATORY | | + + + + + + | % Monocytes | 5.0 | 4.0 - 12.0 % | [facility] | | | | | | [facility] | | | | | | MEDICAL | | | | | | CENTER - | | | | | | LABORATORY | | + + + + + + | % | 2.3 | 0.0 - 5.0 % | [facility] | | | Eosinophils | | | [facility] | | | | | | MEDICAL | | | | | | CENTER - | | | | | | LABORATORY | | + + + + + + | % Basophils | 0.3 | 0.0 - 1.0 % | [facility] | | | | | | [facility] | | | | | | MEDICAL | | | | | | CENTER - | | | | | | LABORATORY | | + + + + + + | Absolute | 5.90 | 1.80 - 8.50 | [facility] | | | Neutrophils | | K/uL | [facility] | | | | | | MEDICAL | | | | | | CENTER - | | | | | | LABORATORY | | + + + + + + | Absolute | 1.50 | 0.60 - 3.20 | [facility] | | | Lymphocytes | | K/uL | [facility] | | | | | | MEDICAL | | | | | | CENTER - | | | | | | LABORATORY | | + + + + + + | Absolute | 0.40 | 0.00 - 1.00 | [facility] | | | Monocytes | | K/uL | [facility] | [...] | Basophils | | K/uL | [facility] | | | | | | MEDICAL [...] [address] | [place] | [phone] | | [facility] | | [address] | | | - LABORATORY | | | | + + + + + ECG 12 lead (03/03/2017 3:37 PM PDT) + + + + + + | Component | Value | Ref Range | Performed | Pathologist | | | | | At | Signature | + + + + + + | VENTRICULAR | 94 | BPM | [facility] | | | RATE EKG | | | | | + + + + + + | ATRIAL RATE | 94 | BPM | [facility] | | + + + + + + | P-R | 130 | ms | [facility] | | | INTERVAL | | | | | + + + + + + | QRS | 80 | ms | [facility] | | | DURATION | | | | | + + + + + + | Q-T | 376 | ms | [facility] | | | INTERVAL | | | | | + + + + + + | Q-T | 470 | ms | [facility] | | | INTERVAL | | | | | | (CORRECTED) | | | | | + + + + + + | P WAVE AXIS | 52 | degrees | [facility] | | + + + + + + | QRS AXIS | -22 | degrees | [facility] | | + + + + + + | T AXIS | 73 | degrees | [facility] | | + + + + + + | INTERPRETAT | Normal sinus | | [facility] | | | ION TEXT | rhythmprolonged QTc | | | | | | intervalWhen compared | | | | | | with ECG of 12-FEB-2017 | | | | | | 09:57,No significant | | | | | | change was | | | | | | foundConfirmed by | | | | | | NINFA TORRES MD ([id number]) | | | | | | on 03/04/2017 6:22:37 AM | | | | + + [...] + | Diagnosis | + + | Chest pain in adult - Primary | + + | Tobacco abuse Tobacco use disorder | + + documented in this encounter"
--- OUTSIDE RECORDS SUMMARY | ~2019-08-11 | XMS | Encounter Summary ---
Demographics + + + | Address | NEED ADDRESS | | | [place] [address] | + + + | Home Phone | | + + + | Preferred Language | Unknown | + + + | Marital Status | Single | + + + | Latter-Day Affiliation | Unknown | + + + | Race | Unknown | + + + | Ethnic Group | Unknown | + + + Author + + + | Author | [facility] | | | and [place] | + + + | Organization | [facility] | | | [...] Team Providers + +------+ + | Care Manager Economic Name | Role | Phone | + +------+ + | No, Physician | PCP | Unavailable | + +------+ + Reason for Visit + + + | Reason | Comments | + + + | Hypertension | | + + + Encounter Details +--------+ + + + + | Date | Type | Department | Care Team | Description | +--------+ + + + + | 04/07/ | Emergency | [facility] | [place], | Uncontrolled | | 2017 | | [facility] | [address] | hypertension | | | | CENTER [address] | [place] | (Primary Dx) | | | | [place], [place] | [address] | | | | | [address] | | | | | | [phone] | | | +--------+ + + + [...] + + + | Blood Pressure | 130/116 | 04/07/2017 6:12 PM | | | | | PDT | | + + + + + | Pulse | 66 | 04/07/2017 6:12 PM | | | | | PDT | | + + + + + | Temperature | 35.7 C (96.3 F) | 04/07/2017 5:57 PM | | | | | PDT | | + + + + + | Respiratory Rate | 12 | 04/07/2017 5:57 PM | | | | | PDT | | + + + + + | Oxygen Saturation | 97% | 04/07/2017 6:12 PM | | | | | PDT | | + + + + + | Inhaled Oxygen | - | - | | | Concentration | | | | + + + + + | Weight | 103.2 kg (227 lb 8 | 04/07/2017 5:57 PM | | | | oz) | PDT | | + + + + + | Height | 182.9 cm (6') | 04/07/2017 5:57 PM | | | | | PDT | | + + + + + | Body Mass Index | 30.85 | 04/07/2017 5:57 PM | | | | | PDT | | + + + + + documented in this encounter Discharge Instructions Instructions [place] MD - 04/07/2017Avoid methamphetamine smoking and alcohol. Us e medications as prescribed today by cardiology and follow-up with them in one month as advi sed, recheck sooner if worse or problems. Allow offending drugs to get out of your system f or body to recover and strength to return AttachmentsThe following attachments cannot be sent through Care Everywhere.Smoking,Tips for Quitting (Cardiovascular) (Cymro)documented in this encounter Medications at Time of Discharge + + + +---------+ + + | Medication | Sig | Dispensed | Refills | Start | End Date | | | | | | Date | | + + + +---------+ + + | aspirin 325 mg | Take 325 mg by mouth | | 0 | | | | tablet | as needed for Pain. | | | | 7 | + + + +---------+ + + | | Take 1 tablet by | 30 | 3 | 04/07/20 | | | hydroCHLOROthiazide | mouth Daily. | tablet | | 17 | 8 | | 25 mg | | | | | | [...] Not on filedocumented as of this encounter Visit Diagnoses + + | Diagnosis | + + | Uncontrolled hypertension - Primary Unspecified essential hypertension | + + documented in this encounter"
--- OUTSIDE RECORDS SUMMARY | ~2019-08-11 | XMS | Encounter Summary ---
Demographics + + + | Address | NEED ADDRESS | | | [place] [address] | + + + | Home Phone | | + + + | Preferred Language | Unknown | + + + | Marital Status | Single | + + + | Baptism Affiliation | Unknown | + + + | Race | Unknown | + + + | Ethnic Group | Unknown | + + + Author + + + | Author | [facility] | | | and [place] | + + + | Organization | [facility] | | | and [...] Team Providers + +------+ + | Care Sap Basis Consultant Name | Role | Phone | + +------+ + | No Physician | PCP | Unavailable | + +------+ + Encounter Details +--------+ + + + + | Date | Type | Department | Care Team | Description | +--------+ + + + + | 01/04/ | Hospital | [facility] | Dannie Peraza, | | | 2019 | Encounter | [facility] OT | OT | | | | | ACUTE [address] | | | | | | [place] | | | | | | [phone] | | | | | | [phone] | | | +--------+ + + + [...] + + documented as of this encounter Medications at Time of Discharge [...] filedocumented as of this encounter Visit Diagnoses Not on filedocumented in this encounter"
--- OUTSIDE RECORDS SUMMARY | ~2019-08-11 | XMS | Encounter Summary ---
Demographics + + + | Address | NEED ADDRESS | | | [place] [address] | + + + | Home Phone | | + + + | Preferred Language | Unknown | + + + | Marital Status | Single | + + + | Hinduism Affiliation | Unknown | + + + [...] | + + +---------+ + | Deb Honceci | ECON | Unknown | | + + +---------+ + | Bong Finley | ECON | Unknown | | + + +---------+ + Care Team Providers + +------+ + | Care Chief Pilot Name | Role | Phone | + +------+ + | No, Physician | PCP | Unavailable | + +------+ + Reason for Visit + + + | Reason | Comments | + + + | Chest Pain | | + + + Encounter Details +--------+ + + + + | Date | Type | Department | Care Team | Description | +--------+ + + + + | 06/23/ | Emergency | [facility] | [place] | Chest pain, | | 2016 | | [facility] | Eric Quijano MD | unspecified type | | | | CENTER [address] | [address] | (Primary Dx); | | | | [place], [place] | [place], [place] | Alcohol use; | | | | [phone] | [id number] | Methamphetamine | | | | [phone] | | dependence in | | | | | | remission (HCC) | +--------+ + + + + Social [...] + + + | Blood Pressure | 133/71 | 06/23/2017 7:26 PM | | | | | PDT | | + + + + + | Pulse | 107 | 06/23/2017 7:26 PM | | | | | PDT | | + + + + + | Temperature | 36.1 C (97 F) | 06/23/2017 6:21 PM | | | | | PDT | | + + + + + | Respiratory Rate | 22 | 06/23/2017 7:26 PM | | | | | PDT | | + + + + + | Oxygen Saturation | 97% | 06/23/2017 7:11 PM | | | | | PDT | | + + + + + | Inhaled Oxygen | - | - | | | Concentration | | | | + + + + + | Weight | 99.8 kg (220 lb) | 06/23/2017 6:21 PM | | | | | PDT | | + + + + + | Height | 182.9 cm (6') | 06/23/2017 6:21 PM | | | | | PDT | | + + + + + | Body Mass Index | 29.84 | 06/23/2017 6:21 PM | | | | | PDT | | + + + + + documented in this encounter Discharge Instructions Instructions [place] MD - 06/23/2017Please follow-up with her primary care physician. Return for severe worsening symptoms. documented in this encounter Medications at Time [...] XR CHEST AP PORTABLE | STAT | 06/23/2017 | | Results for this | | | | 6:58 PM | | procedure are in the | | | | PDT | | results section. | + +--------+ + + + | OXYGEN THERAPY | STAT | 06/23/2017 | | | | | | 6:30 PM | | | | | | PDT | | | + +--------+ + + + | EXTRA GREEN TOP TUBE | Routin | 06/23/2017 | | Results for this | | | e | 6:30 PM | | procedure are in the | | | | PDT | | results section. | + +--------+ + + + | LIPASE | STAT | 06/23/2017 | | Results for this | | | | 6:30 PM | | procedure are in the | | | | PDT | | results section. | + +--------+ + + + | COMPREHENSIVE | STAT | 06/23/2017 | | Results for this | | METABOLIC PANEL | | 6:30 PM | | procedure are in the | | | | PDT | | results section. | + +--------+ + + + | EXTRA LAVENDER TOP | Routin | 06/23/2017 | | Results for this | | TUBE | e | 6:29 PM | | procedure are in the | | | | PDT | | results section. | + +--------+ + + + | EXTRA GREEN TOP TUBE | Routin | 06/23/2017 | | Results for this | | | e | 6:29 PM | | procedure are in the | | | | PDT | | results section. | + +--------+ + + + | EXTRA BLUE TOP TUBE | Routin | 06/23/2017 | | Results for this | | | e | 6:29 PM | | procedure are in the | | | | PDT | | results section. | + +--------+ + + + | TROPONIN I | STAT | 06/23/2017 | | Results for this | | | | 6:29 PM | | procedure are in the | | | | PDT | | results section. | + +--------+ + + + | PROTIME INR | STAT | 06/23/2017 | | Results for this | | | | 6:29 PM | | procedure are in the | | | | PDT | | results section. | + +--------+ + + + | CBC WITH | STAT | 06/23/2017 | | Results for this | | DIFFERENTIAL | | 6:29 PM | | procedure are in the | | | | PDT | | results section. | + +--------+ + + + | ECG 12 LEAD | STAT | 06/23/2017 | | Results for this | | | | 6:19 PM | | procedure are in the | | | | PDT | | results section. | + +--------+ + + + documented in this encounter Results XR Chest AP Portable (06/23/2017 6:58 PM PDT) + + | Specimen | + + | | + + + + + | Narrative | Performed At | + + + | XR CHEST AP PORTABLE 06/23/2017 6:58 PM HISTORY: CHEST PAIN. | [facility] | | COMPARISON: None. Findings: The bilateral lungs are clear with | | | no evidence for pleural effusion or pneumothorax. Heart size is | | | within normal limits. Pulmonary vasculature is within normal limits. | | | Aorta is normal. Mediastinum is unremarkable. No acute osseous or | | | soft tissue abnormality identified. Similar appearance of prominent | | | costochondral cartilage along the anterior aspect of the right first | | | rib. Remote fracture deformity of the left clavicle. IMPRESSION - | | | No acute intrathoracic abnormality identified. Dictated and | | | Signed by: Lennox Dejesus MD Electronically signed: 06/23/2017 | | | 7:14 PM | | + + + + + | Procedure Note | + + | Kedar, Rad Results In - 06/23/2017 7:17 PM PDT XR CHEST AP PORTABLE 06/23/2017 6:58 PM | | | | HISTORY: CHEST PAIN. | | | | COMPARISON: None. | | | | Findings: | | The bilateral lungs are clear with no evidence for pleural effusion or | | pneumothorax. Heart size is within normal limits. Pulmonary vasculature is | | within normal limits. Aorta is normal. Mediastinum is unremarkable. No acute | | osseous or soft tissue abnormality identified. Similar appearance of prominent | | costochondral cartilage along the anterior aspect of the right first rib. Remote | | fracture deformity of the left clavicle. | | | | IMPRESSION - | | No acute intrathoracic abnormality identified. | | | | Dictated and Signed by: Lennox Dejesus MD | | Electronically signed: 06/23/2017 7:14 PM | + + + +---------+ + + | Performing | Address | City/State/Zipcode | Phone Number | | Organization | | | | + +---------+ + + | [facility] | | | | + +---------+ + + Lipase (06/23/2017 6:30 PM PDT) + +---------+ + + + | Component | Value | Ref Range | Performed | Pathologist | | | | | At | Signature | + +---------+ + + + | Lipase | 111 (H) | 0 - 60 U/L | [facility] | | | | [...] + | [facility] | [address] | [place] | [phone] | | [facility] | | [address] | | | - LABORATORY | | | | + + + + + Comprehensive Metabolic Panel (06/23/2017 6:30 PM PDT) + + + + + + | Component | Value | Ref Range | Performed | Pathologist | | | | | At | Signature | + + + + + + | Na | 141 | 136 - 149 | [facility] | | | | | mmol/L | [facility] | | | | | | [facility] | | | | | | C[facility] - | | | | | | LABORATORY | | + + + + + + | K | 3.8 | 3.5 - 5.1 | [facility] | | | | | mmol/L | [facility] | | | | | | [facility] | | | | | | CENTER - | | | | | | LABORATORY | | + + + + + + | Cl | 107 | 98 - 109 mmol/L | [facility] [...] + + + | Anion Gap | 7 | 3 - 16 mmol/L | [facility] | [facility] | | | | | | [facility] | | | | | | CENTER - | | | | | | LABORATORY | | + + + + + + | Glucose | 133 (H) | 70 - 109 mg/dL | [facility] | | | | | | [facility] | | | | | | [facility] | | | | | | CENTER - | | | | | | LABORATORY | | + + + + + + | BUN | 14 | 7 - 18 mg/dL | [facility] | | | | | | [facility] | | | | | | [facility] | | | | | | CENTER - | | | | | | LABORATORY | | + + + + + + | Creatinine | 1.28 | 0.60 - 1.30 | [facility] | | | | | mg/dL | [facility] | | | | | | [facility] | | | | | | CENTER - | | | | | | LABORATORY | | + + + + + + | eGFR if not | 58 (L)Comment: | >=60 | [facility] | | | | GLOMERULAR FILTRATION | mL/min/1.73m2 | [facility] | | | KYRGYZ | RATE,ESTIMATED | | MEDICAL | | | | mL/min/1.24e9Jyhs than | | CENTER - | | [...] + + | Calcium | 8.9 | 8.3 - 10.5 | [facility] | | | | | mg/dL | [facility] | | | | | | MEDICAL | | | | | | CENTER - | | | | | | LABORATORY | | + + + + + + | Albumin | 3.6 | 3.2 - 5.0 g/dL | [facility] | | | | | | [facility] | | | | | | [...] + + | Total | 6.0 | 6.0 - 7.8 g/dL | [facility] | | | Protein | | | [facility] | | | | | | MEDICAL | | | | | | CENTER - | | | | | | LABORATORY | | + + + + + + | AST | 29Comment: This is an | 10 - 42 [...] + + + + | ALT | 33Comment: This is an | 6 - 45 [...] + + + + | Alkaline | 74Comment: This is an | 40 - 110 [...] + + + + | Globulin | 2.4 | 2.1 - 3.8 g/dL | [facility] | | | | | | [facility] | | | | | | [facility]ICAL | | | | | | CENTER - | | | | | | LABORATORY | | + + + + + + | Albumin/Clara | 1.5 | 0.8 - 2.0 | [facility] | | | bulin Ratio | | | [facility] | | | | | | MEDICAL | | | | | | CENTER - | | | | | | LABORATORY | | + + + + + + | BUN/Creatin | 10.9 | | [facility] | | | ine [...] + | [facility] | [address] | [place] | [phone] | | [facility] | | [address] | | | - LABORATORY | | | | + + + + + Extra Green Top Tube (06/23/2017 6:30 PM PDT) + +-------+ + + + [...] [address] | [place] | [phone] | | [facility] | | [address] | | | - LABORATORY | | | | + + + + + Troponin I (06/23/2017 6:29 PM PDT) + + + + + [...] | | | | | | [employer] | | | | | [...] [facility]. | [address] | [place], [place] | [phone] | | [facility] | | [address] | | | - LABORATORY | | | | + + + + + Protime INR (06/23/2017 6:29 PM PDT) + + + + + + | Component | Value | Ref Range | Performed | Pathologist | | | | | At | Signature | + + + + + + | Prothrombin | 11.8 | 11.3 - 13.9 | [facility] | | | Time | | seconds | [facility] | | | | | | MEDICAL | | | | | | CENTER - | | | | | | LABORATORY | | + + + + + + | INR | 0.88 (L)Comment: Usual | 0.90 - 1.10 | [facility] | | | | Oral Anticoagulation | | [facility] | | | | Range: 2.0 - | | MEDICAL | | | | 3.0High Level Oral | | CENTER - | [...] [address] | [place] | [phone] | | [facility] | | [address] | | | - LABORATORY | | | | + + + + + CBC with Differential (06/23/2017 6:29 PM PDT) + +-------+ + + + | Component | Value | Ref Range | Performed | Pathologist | | | | | At | Signature | + +-------+ + + + | WBC | 10.0 | 4.0 - 11.0 K/uL | [facility] | | | | | | [facility] | | | | | | MEDICAL | | | | | | CENTER - | | | | | | LABORATORY | | + +-------+ + + + | RBC | 4.63 | 4.30 - 5.70 | [facility] | | | | | M/uL | [facility] | | | | | | MEDICAL | | | | | | CENTER - | | | | | | LABORATORY | | + +-------+ + + + | Hemoglobin | 14.4 | 13.5 - 18.0 | [facility] | | | | | g/dL | [facility] | | | | | | MEDICAL | | | | | | CENTER - | | | | | | LABORATORY | | + +-------+ + + + | Hematocrit | 42.9 | 40.0 - 51.0 % | [facility] | | | | | | [facility] | | | | | | MEDICAL | | | | | | CENTER - | | | | | | LABORATORY | | + +-------+ + + + | MCV | 92.7 | 83.0 - 101.0 fL | [facility] | | | | | | [facility] | | | | | | MEDICAL | | | | | | CENTER - | | | | | | LABORATORY | | + +-------+ + + + | MCH | 31.2 | 28.0 - 35.0 pg | [facility] | | | | | | [facility] | | | | | | MEDICAL | | | | | | CENTER - | | | | | | LABORATORY | | + +-------+ + + + | MCHC | 33.6 | 32.0 - 36.0 | [facility] | | | | | g/dL | [facility] | | | | | | MEDICAL | | | | | | CENTER - | | | | | | LABORATORY | | + +-------+ + + + | RDW-CV | 12.6 | <15.0 % | [facility] | | | | | | [facility] | | | | | | MEDICAL | | | | | | CENTER - | | | | | | LABORATORY | | + +-------+ + + + | Platelet | 179 | 140 - 440 K/uL | [facility] | | | Count | | | [facility] | | | | | | MEDICAL | | | | | | CENTER - | | | | | | LABORATORY | | + +-------+ + + + | MPV | 9.2 | fL | [facility] | | | | | | [facility] | | | | | | MEDICAL | | | | | | CENTER - | | | | | | LABORATORY | | + +-------+ + + + | % | 68.5 | 45.0 - 82.0 % | [facility] | | | Neutrophils | | | [facility] | | | | | | MEDICAL | | | | | | CENTER - | | | | | | LABORATORY | | + +-------+ + + + | % | 22.7 | 20.0 - 45.0 % | [facility] | | | Lymphocytes | | | [facility] | | | | | | MEDICAL | | | | | | CENTER - | | | | | | LABORATORY | | + +-------+ + + + | % Monocytes | 5.8 | 4.0 - 12.0 % | [facility] | | | | | | [facility] | | | | | | MEDICAL | | | | | | CENTER - | | | | | | LABORATORY | | + +-------+ + + + | % | 2.2 | 0.0 - 5.0 % | [facility] | | | Eosinophils | | | [facility] | | | | | | MEDICAL | | | | | | CENTER - | | | | | | LABORATORY | | + +-------+ + + + | % Basophils | 0.8 | 0.0 - 1.0 % | [facility] | | | | | | [facility] | | | | | | MEDICAL | | | | | | CENTER - | | | | | | LABORATORY | | + +-------+ + + + | Absolute | 6.90 | 1.80 - 8.50 | [facility] | | | Neutrophils | | K/uL | [facility] | | | | | | MEDICAL | | | | | | CENTER - | | | | | | LABORATORY | | + +-------+ + + + | Absolute | 2.30 | 0.60 - 3.20 | [facility] | | | Lymphocytes | | K/uL | [facility] | | | | | | MEDICAL | | | | | | CENTER - | | | | | | LABORATORY | | + +-------+ + + + | Absolute | 0.60 | 0.00 - 1.00 | [facility] | | | Monocytes | | K/uL | [facility] | | | | | | MEDICAL | | | | | | CENTER - | | | | | | LABORATORY | | + +-------+ + + + | Absolute | 0.20 | 0.00 - 0.40 | [facility] | | | Eosinophils | | K/uL | [facility] | | | | | | MEDICAL | | | | | | CENTER - | | | | | | LABORATORY | | + +-------+ + + + | Absolute | 0.10 | 0.00 - 0.10 | [facility] | [...] [address] | [place] | [phone] | | [facility] | | [address] | | | - LABORATORY | | | | + + + + + Extra Lavender Top Tube (06/23/2017 6:29 PM PDT) + +-------+ + + + [...] ST. | [address] | [place], [place] | [phone] | | [facility] | | [address] | | | - LABORATORY | | | | + + + + + Extra Blue Top Tube (06/23/2017 6:29 PM PDT) + +-------+ + + + [...] [address] | [place] | [phone] | | [facility] | | [address] | | | - LABORATORY | | | | + + + + + Extra Green Top Tube (06/23/2017 6:29 PM PDT) + +-------+ + + + [...] + | [facility] | [address] | [place] | [phone] | | [facility] | | [address] | | | - LABORATORY | | | | + + + + + ECG 12 lead (06/23/2017 6:19 PM PDT) + + + + + + | Component | Value | Ref Range | Performed | Pathologist | | | | | At | Signature | + + + + + + | VENTRICULAR | 108 | BPM | [facility] | | | RATE EKG | | | | | + + + + + + | ATRIAL RATE | 108 | BPM | [facility] | | + + + + + + | P-R | 142 | ms | [facility] | | | INTERVAL | | | | | + + + + + + | QRS | 78 | ms | [facility] | | | DURATION | | | | | + + + + + + | Q-T | 346 | ms | [facility] | | | INTERVAL | | | | | + + + + + + | Q-T | 463 | ms | [facility] | | | INTERVAL | | | | | | (CORRECTED) | | | | | + + + + + + | P WAVE AXIS | 59 | degrees | [facility] | | + + + + + + | QRS AXIS | 28 | degrees | [facility] | | + + + + + + | T AXIS | 47 | degrees | [facility] | | + + + + + + | INTERPRETAT | Sinus | | [facility] | | | ION TEXT | tachycardiaPossible Left | | | | | | atrial | | | | | | enlargementNonspecific T | | | | | | wave | | | | | | abnormalityBorderline | | | | | | ECGWhen compared with | | | | | | ECG of 07-APR-2017 | | | | | | 15:33,premature atrial | | | | | | complexes are no longer | | | | | | presentQuestionable | | | | | | change in QRS axisT wave | | | | | | amplitude has increased | | | | | | in Inferior | | | | | | leadsConfirmed by | | | | | | NINFA TORRES MD ([id number]) | | | | | | on 06/24/2017 6:39:52 AM | | | | + + [...] | Diagnosis | + + | Chest pain, unspecified type - Primary | + + | Alcohol use Other problems related to lifestyle | + + | 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
--- OUTSIDE RECORDS SUMMARY | ~2019-08-11 | XMS | Encounter Summary ---
Demographics + + + | Address | NEED ADDRESS | | | [place] [address] | + + + | Home Phone | | + + + | Preferred Language | Unknown | + + + | Marital Status | Single | + + + | Protestant Affiliation | Unknown | + + + | Race | Unknown | + + + | Ethnic Group | Unknown | + + + Author + + + | Author | [facility] | | | and [place] | + + + | Organization | [facility] | | | [...] Team Providers + +------+ + | Care Hot Frame Tender Name | Role | Phone | + +------+ + | No, Physician | PCP | Unavailable | + +------+ + Reason for Visit + + + | Reason | Comments | + + + | Chest Pain | | + + + | Hypertension | | + + + | New Patient | | + + + Evaluate & Treat (Routine) +--------+ + + + + + | Status | Reason | Specialty | Diagnoses / | Referred By | Referred To | | | | | Procedures | Contact | Contact | +--------+ + + + + + | Closed | Specialty | Cardiology | Diagnoses | [place], | Debi | | | Services | | Chest pain | Vicente Retana MD | MD Nell | | | Required | | in adult | [address] | | | | | Tobacco | [address] | [address] | | | | | abuse | [place], | [place], | | | | | | [place] [address] | [place] [address] | | | | | | Phone: | Phone: | | | | | | [phone] | [phone] | | | | | | Fax: | Fax: | | | | | | [phone] | [phone] | +--------+ + + + + + Encounter Details +--------+---------+ + + + | Date | Type | Department | Care Team | Description | +--------+---------+ + + + | 04/07/ | Office | [facility] | Nell Carrera, | Chest pain, | | 2017 | Visit | CARDIOLOGY [address] | unspecified type | | | | [address], | [place], | (Primary Dx); | | | | [place] [address] | [place] [address] | Essential | | | | [phone] | [phone] | hypertension with | | | | | | goal blood pressure | | | | | | less than 130/80 | +--------+---------+ + + + Social History + + [...] + + + | Blood Pressure | 180/88 | 04/07/2017 3:39 PM | RIGHT | | | | PDT | | + + + + + | Pulse | 74 | 04/07/2017 3:39 PM | | | | | PDT | | + + + + + | Temperature | - | - | | + + + + + | Respiratory Rate | 20 | 04/07/2017 3:39 PM | | | | | PDT | | + + + + + | Oxygen Saturation | - | - | | + + + + + | Inhaled Oxygen | - | - | | | Concentration | | | | + + + + + | Weight | 103.2 kg (227 lb 8 | 04/07/2017 3:39 PM | | | | oz) | PDT | | + + + + + | Height | 182.9 cm (6') | 04/07/2017 3:39 PM | | | | | PDT | | + + + + + | Body Mass Index | 30.85 | 04/07/2017 3:39 PM | | | | | PDT | | + + + + + documented in this encounter Patient Instructions Patient Instructions Larissa Street RN - 04/07/2017 4:00 PM PDT1. Start Lisinopril 10mg -take one tablet by mouth one time daily 2. Start Hydrochlorothiazide 25mg - take one tablet by mouth one time daily 3. Check blood pressure and pulse twice daily for two weeks, mail back in envelope provided . 4. Blood test: Non-fasting Date Due: 04/14/17 Where to go for labs: [facility]- [address] 5. Sleep consult/sleep study - we will send a referral, someone from the Sleep center will call you to arrange an appointment. 6. Follow up appointment: 4 weeks Provider: FARZANA Eugene Date: Check-In Time: documented in this encounter Progress Notes Nell Carrera MD - 04/07/2017 4:00 PM PDTFormatting of this note might be different f rom the original. PATIENT NAME: Dannie Win : 1960: AGE: 56 y.o. REFERRED BY: Vicente Bravo PRIMARY CARE: No Physician on file NEW PATIENT OFFICE VISIT Date of Service: 04/07/17 HISTORY OF PRESENT ILLNESS: Dannie Win is a 56 y.o. male with a history of meth amphetamine abuse, smoking a nd hypertension. He is being seen today for emergency department for chest pain and hyperte nsion. Patient was in his usual state of health until 03/03/2017 he was seen at [facility] for chest pain seen by Vicente Bravo MD. initial workup including troponin, BN P, CBC, metabolic and EKG were unremarkable. Today, patient denies any recurrent chest pain. He does report having shortness of breath o n exertion i.e. walking. He also mentions reports being clean from meth for one month. Carolyn nt is physically active walking at work. There is no palpitations, dizziness or lightheadedn ess. There is no ankle or leg swelling. Patient can sleep on one pillow at night without d ifficulty breathing. CURRENT PROBLEMS There is no problem list on file for this patient. MEDICAL, SURGICAL, AND PERSONAL HISTORY Past Surgical History: Procedure Laterality Date HERNIA REPAIR No family history on file. No family status information on file. Social History Social History Marital status: Single Spouse name: N/A Number of children: N/A Years of education: N/A Social History Main Topics Smoking status: Current Every Day Smoker Packs/day: 0.04 Types: Cigarettes Smokeless tobacco: Never Used Alcohol use 3.6 oz/week 6 Cans of beer per week Comment: week Drug use: No Sexual activity: Not Asked Other Topics Concern None Social History Narrative None CURRENT MEDICATIONS Current Outpatient Prescriptions Medication Sig Dispense Refill aspirin 325 mg tablet Take 325 mg by mouth as needed for Pain. No current facility-administered medications for this visit. ALLERGIES No Known Allergies ROS Review of Systems Constitutional: Positive for malaise/fatigue and weight loss. Negative for chills, diaphore sis and fever. HENT: Positive for nosebleeds and tinnitus. Negative for congestion and hearing loss. Dental Problems = No Eyes: Negative for blurred vision and double vision. Respiratory: Positive for shortness of breath. Cardiovascular: Positive for chest pain. Negative for palpitations and leg swelling. Gastrointestinal: Negative for blood in stool, constipation, diarrhea, nausea and vomiting. Genitourinary: Negative for dysuria, frequency, hematuria and urgency. Musculoskeletal: Positive for neck pain. Negative for back pain, falls, joint pain and myal gias. Gait Problems = No Skin: Negative for itching and rash. Neurological: Positive for dizziness and weakness. Negative for tingling, tremors, speech c hange, seizures and loss of consciousness. Lightheaded = No Endo/Heme/Allergies: Does not bruise/bleed easily. Psychiatric/Behavioral: Negative for memory loss. The patient is not nervous/anxious and do es not have insomnia. OBJECTIVE: PHYSICAL EXAM BP 180/88 Comment: RIGHT | Pulse 74 | Resp 20 | Ht 1.829 m (6') | Wt 103.2 kg (227 lb 8 oz) | BMI 30.85 kg/m Physical Exam Constitutional: He is oriented to person, place, and time. He appears well-developed and we ll-nourished. No distress. Male individual arrives alone, without acute distress. HENT: Head: Normocephalic. Mouth/Throat: Mucous membranes are not cyanotic. Eyes: Lids are normal. Neck: Normal carotid pulses, no hepatojugular reflux and no JVD present. Carotid bruit is n ot present. No tracheal deviation present. Cardiovascular: Normal rate, regular rhythm, S1 normal, S2 normal and normal pulses. PMI i s not displaced. Exam reveals no gallop, no S3 and no S4. No murmur heard. Pulses: Carotid pulses are 2+ on the right side, and 2+ on the left side. Femoral pulses are 2+ on the right side, and 2+ on the left side. Dorsalis pedis pulses are 2+ on the right side, and 2+ on the left side. Posterior tibial pulses are 2+ on the right side, and 2+ on the left side. Pulmonary/Chest: Effort normal and breath sounds normal. No accessory muscle usage. No resp iratory distress. He has no wheezes. He has no rhonchi. He has no rales. Abdominal: Soft. Normal appearance and bowel sounds are normal. He exhibits no abdominal br uit. There is no hepatosplenomegaly. There is no tenderness. Musculoskeletal: He exhibits no edema. Neurological: He is alert and oriented to person, place, and time. Gait normal. Skin: Skin is warm and dry. He is not diaphoretic. No cyanosis. No pallor. Nails show no cl ubbing. Psychiatric: He has a normal mood and affect. His mood appears not anxious. He does not exh ibit a depressed mood. ECG: Sinus rhythm with premature atrial complexes, nonspecific T wave abnormality. LAB RESULTS: LIPID No results found for: CHOL, TRIG, HDL, LDL, CHOLHDL, LDLEX, HDLEX, TRIGEX, CHOLEX CHEMISTRY Lab Results Component Value Date GLU 119 (H) 03/03/2017 NA 139 03/03/2017 K 3.5 03/03/2017 CL 108 03/03/2017 CO2 27 03/03/2017 CALCIUM 8.8 03/03/2017 ALKPHOS 81 03/03/2017 AST 18 03/03/2017 ALT 20 03/03/2017 BILITOT 0.6 03/03/2017 CREA 0.94 03/03/2017 BUN 10 03/03/2017 HEMATOLOGY Lab Results Component Value Date WBC 8.1 03/03/2017 HGB 15.4 03/03/2017 HCT 44.9 03/03/2017 PLT 172 03/03/2017 I reviewed records from Vicente Bravo MD for office visit on 03/03/2017. Refer to cardiolog ist. ASSESSMENT: 1. Chest pain A. Patient was in his usual state of health until 03/03/2017 he was seen at [facility] department for chest pain seen by Vicente Bravo MD. initial workup including troponi n, BNP, CBC, metabolic and EKG were unremarkable. B. Today, patient denies any recurrent chest pain. He does report having shortness of radames th on exertion i.e. walking. There is no signs and symptoms of overt congestive heart failure. He is in a class II of [place] [employer] functional class. There is no fluid retention on physical examin ation. 2. Hypertension A. Today's blood pressure is moderately elevated. 3. Marijuana use A. He smokes marijuana to help him sleep. 4. Meth use A. Patient reports being clean for one month ago. 5. Sleep disorder breathing A. He scored 5 out of 8 on stop bang questionnaire. PLAN: 1. I spend time at length talking about natural course, treatment and prognosis of chest pa in and hypertension. 2. Patient was given bystolic 20 mg orally in my office to bring blood pressure down. 3. Refer patient for sleep study and sleep consultation. 4. Start hydrochlorothiazide 25 mg and lisinopril 10 mg once a day to lower blood pressure. 5. Check blood pressure x 2 weeks. Check minichem in 1 week. 6. I recommend a therapeutic lifestyle change including walking 30 minutes a day, choosing healthy choices of diet, including DASH diet and weight reduction. 7. Follow up in 4 to 6 weeks with FARZANA Eugene. Kaitlin Mondragon am acting as a scribe on behalf of, and in the presence of Nell Carrera MD. I have reviewed and edited this note. Kaitlin Mondragon Seasoner Hand 04/07/2017 I, Nell Carrera MD, personally performed the services described in this documentation, as scribed in my presence and it is both accurate and complete. Kaitlin Mondragon Med Ass t 04/07/2017 15:49 Electronically signed by: Nell Carrera MD [facility] 04/07/2017 Portions of this chart may have been created with [employer] voice recognition software. Occasi onal wrong-word or sound-alike substitutions may have occurred due to the inherent rangel itations of voice recognition software. Please read the chart carefully and recognize, using context, where these substitutions have occurred. documented in this encounter Plan of Treatment + +------+--------+ + + | Name | Type | Priori | Associated Diagnoses | Order Schedule | | | | ty | | | + +------+--------+ + + | Basic Metabolic | Lab | Routin | Essential | Expected: | | Panel | | e | hypertension with | 04/14/2017, Expires: | | | | | goal blood pressure | 04/07/2018 | | | | | less than 130/80 | | + +------+--------+ + + documented as of this encounter Procedures + +--------+ + + + | Procedure Name | Priori | Date/Time | Associated Diagnosis | Comments | | | ty | | | | + +--------+ + + + | ECG 12 LEAD | Routin | 04/07/2017 | Chest pain, | Results for this | | | e | 3:33 PM | unspecified type | procedure are in the | | | | PDT | | results section. | + +--------+ + + + documented in this encounter Results ECG 12 lead (04/07/2017 3:33 PM PDT) + + + + + + | Component | Value | Ref Range | Performed | Pathologist | | | | | At | Signature | + + + + + + | VENTRICULAR | 74 | BPM | [facility] | | | RATE EKG | | | | | + + + + + + | ATRIAL RATE | 74 | BPM | [facility] | | + + + + + + | P-R | 128 | ms | [facility] | | | INTERVAL | | | | | + + + + + + | QRS | 86 | ms | [facility] | | | DURATION | | | | | + + + + + + | Q-T | 394 | ms | [facility] | | | INTERVAL | | | | | + + + + + + | Q-T | 437 | ms | [facility] | | | INTERVAL | | | | | | (CORRECTED) | | | | | + + + + + + | QRS AXIS | -169 | degrees | [facility] | | + + + + + + | T AXIS | 109 | degrees | [facility] | | + + + + + + | INTERPRETAT | Sinus rhythm with | | [facility] | | | ION TEXT | premature atrial | | | | | | complexesRight superior | | | | | | axis | | | | | | deviationNonspecific T | | | | | | wave abnormalityAbnormal | | | | | | ECGWhen compared with | | | | | | ECG of 03-MAR-2017 | | | | | | 15:37,premature atrial | | | | | | complexes are now | | | | | | presentQRS axis shifted | | | | | | leftNonspecific T wave | | | | | | abnormality now evident | | | | | | in Inferior | | | | | | leadsNonspecific T wave | | | | | | abnormality, worse in | | | | | | Lateral leadsConfirmed | | | | | | by DEBI ZIMMERMAN, NELL | | | | | | ([id number]) on 04/08/2017 | | | | | | 6:02:44 AM | | | | + + [...] type - Primary | + + | Essential hypertension with goal blood pressure less than 130/80 | + + documented in this encounter"
--- OUTSIDE RECORDS SUMMARY | ~2019-08-11 | XMS | Encounter Summary ---
Demographics + + + | Address | NEED ADDRESS | | | [place] [address] | + + + | Home Phone | | + + + | Preferred Language | Unknown | + + + | Marital Status | Single | + + + | Zoroastrian Affiliation | Unknown | + + + | Race | Unknown | + + + | Ethnic Group | Unknown | + + + Author + + + | Author | [facility] | | | and [place] | + + + | Organization | [facility] | | | and [...] Team Providers + +------+ + | Care Cartography Professor Name | Role | Phone | + [...] | | Tobacco | [address] | [address] | | | | | abuse | [place], | [place], | | | | | | [place] [address] | [place] [address] | | | | | | Phone: | Phone: | | | | | | [phone] | [phone] | | | | | | Fax: | Fax: | | | | | | [phone] | [phone] | +--------+ + + + + + [...] Emergency | [facility] | Vicente Bravo, | Chest pain in adult | | 2017 | | [facility] | MD [address] | (Primary Dx); | | | | CENTER [address] | [place], [place] | Tobacco abuse | | | | [place], [place] | [address] | | | | | [address] | | | | | | [phone] | | | +--------+ + + + [...] sent through Care Everywhere.CHEST PAIN, NON CARDIAC (TONGAN)documented in this encounter Medications at Time of [...] | | | | | | [employer] | | | | | [...] [address] | [place] | [phone] | | [facility] | | [address] | | | - LABORATORY | | [...] + | [facility] | [address] | [place] | [phone] | | [facility] | | [address] | | | - LABORATORY | | [...] + | [facility] | [address] | [place] | [phone] | | [facility] | | [address] | | | - LABORATORY | | [...] [address] | [place] | [phone] | | [facility] | | [address] | | | - LABORATORY | | [...] | | | | | | [employer] | | | | | [...] [address] | [place] | [phone] | | [facility] | | [address] | | | - LABORATORY | | [...] 10 | 7 - 18 mg/dL | [facility] | | | | | | [facility] | | | | | | MEDICAL | | | | | | CENTER - | | | | | | LABORATORY | | + + + + + + | Creatinine | 0.94 | 0.60 - 1.30 | [facility] | | | | | mg/dL | [facility] | | | | | | MEDICAL | | | | | | CENTER - | | | | | | LABORATORY | | + + + + + + | eGFR if not | >60Comment: GLOMERULAR | >=60 | [facility] | | | | FILTRATION | mL/min/1.73m2 | [facility] | | | DUTCH | RATE,ESTIMATED | | MEDICAL | | | | mL/min/1.34m7Cons than | | CENTER - | | [...] [address] | [place] | [phone] | | [facility] | | [address] | | | - LABORATORY | | [...] | Basophils | | K/uL | [facility] | | | | | | MEDICAL [...] [address] | [place] | [phone] | | [facility] | | [address] | | | - LABORATORY | | [...] | | | | NINFA TORRES MD ([id number]) | | | | | | on [...]
--- OUTSIDE RECORDS SUMMARY | ~2019-08-11 | XMS | Encounter Summary ---
Demographics + + + | Address | NEED ADDRESS | | | [place] [address] | + + + | Home Phone | | + + + | Preferred Language | Unknown | + + + | Marital Status | Single | + + + | Pentecostalism Affiliation | Unknown | + + + | Race | Unknown | + + + | Ethnic Group | Unknown | + + + Author + + + | Author | [facility] | | | and [place] | + + + | Organization | [facility] | | | [...] Team Providers + +------+ + | Care City Secretary Name | Role | Phone | + +------+ + | Marshall Sanchez PA-C | PCP | | + +------+ + Reason for Visit + + + | Reason | Comments | + + + | Alcohol Intoxication | | + + + Encounter Details +--------+ + + + + | Date | Type | Department | Care Team | Description | +--------+ + + + + | 05/29/ | Emergency | [facility] | Vicente Bravo, | Methamphetamine | | 2019 | [facility] | MD [address] | abuse (HCC) (Primary | | | | CENTER [address] | [place] | Dx); Homelessness; | | | | [place] | [address] | History of recent | | | | [address] | | stroke | | | | [phone] | León Ross | | | | | | MD [address] | | | | | | [place] | | | | | | [address] | | | | | | [phone] | | | | | | | [...] + + + | Blood Pressure | 183/102 | 05/29/2019 10:30 AM | | | | | PDT | | + + + + + | Pulse | 65 | 05/29/2019 10:30 AM | | | | | PDT | | + + + + + | Temperature | 36.3 C (97.4 F) | 05/29/2019 5:46 AM | | | | | PDT | | + + + + + | Respiratory Rate | 16 | 05/29/2019 5:46 AM | | | | | PDT | | + + + + + | Oxygen Saturation | 98% | 05/29/2019 10:24 AM | | | | | PDT | | + + + + + | Inhaled Oxygen | - | - | | | Concentration | | | | + + + + + | Weight | - | - | | + + + + + | Height | - | - | | + + + + + | Body Mass Index | - | - | | + + + + + documented in this encounter Discharge Instructions Instructions León Ross MD - 05/29/2019Return for worsening symptoms or any oth er concerns Avoid drug/alcohol use Be sure to take your daily medications, especially your blood pressure medication documented in this encounter Medications at Time [...] CT HEAD WO CONTRAST | STAT | 05/29/2019 | | Results for this | | | | 6:51 AM | | procedure are in the | | | | PDT | | results section. | + +--------+ + + + | DRUGS OF ABUSE, | STAT | 05/29/2019 | | Results for this | | SCREEN, URINE | | 6:43 AM | | procedure are in the | | | | PDT | | results section. | + +--------+ + + + | CBC WITH | STAT | 05/29/2019 | | Results for this | | DIFFERENTIAL | | 5:52 AM | | procedure are in the | | | | PDT | | results section. | + +--------+ + + + | ALCOHOL | STAT | 05/29/2019 | | Results for this | | | | 5:52 AM | | procedure are in the | | | | PDT | | results section. | + +--------+ + + + | ACETAMINOPHEN LEVEL | STAT | 05/29/2019 | | Results for this | | | | 5:52 AM | | procedure are in the | | | | PDT | | results section. | + +--------+ + + + | SALICYLATE LEVEL | STAT | 05/29/2019 | | Results for this | | | | 5:52 AM | | procedure are in the | | | | PDT | | results section. | + +--------+ + + + | COMPREHENSIVE | STAT | 05/29/2019 | | Results for this | | METABOLIC PANEL | | 5:52 AM | | procedure are in the | | | | PDT | | results section. | + +--------+ + + + documented in this encounter Results CT Head wo Contrast (05/29/2019 6:51 AM PDT) + + | Specimen | + + | | + + + + + | Narrative | Performed At | + + + | EXAM: CT HEAD WO CONTRAST dated 05/29/2019 6:39 AM HISTORY: | [facility] | | Altered mental status Comparison: 04/08/[address] | | | TECHNIQUE: Noncontrast CT is performed from the top of calvarium | | | through the skull base. Coronal and sagittal reformats are | | | performed. DOSE: DLP 670.32 mGy-cm FINDINGS: BRAIN: | | | Ventricles, sulci and cisterns are unremarkable for age. No areas of | | | increased attenuation to suggest intracranial hemorrhage. There is | | | no mass, mass effect, or midline shift. There are no abnormal | | | extra-axial fluid or air collections. There is preservation of the | | | cook-white differentiation at this time. There are mild scattered | | | regions of periventricular and subcortical white matter low density. | | | Stable hypodensity in the left thalamus. SCALP/ CALVARIUM: | | | The scalp and skull are intact and are unremarkable. SINUSES / | | | ORBITS/ MASTOIDS: The visible mastoid air cells and paranasal sinuses | | | are clear. The globes and retroconal contents are intact and are | | | unremarkable. IMPRESSION - No CT evidence for an acute | | | intracranial process. Remote lacunar infarct versus dilated | | | perivascular space. The preliminary report is provided by | | | Bernard on 05/29/2019 at 7:07 AM. Dictated and Signed by: | | | Oskar Gutierrez MD Electronically signed: 05/29/2019 1:14 PM | | + + + + + | Procedure Note | + + | Kedar, Bennett Results In - 05/29/2019 1:17 PM PDT EXAM: CT HEAD WO CONTRAST dated | | 05/29/2019 6:39 AMHISTORY: Altered mental statusComparison: 04/08/2019 head CTTECHNIQUE: | | Noncontrast CT is performed from the top of calvarium through theskull base. Coronal | | and sagittal reformats are performed.DOSE: DLP 670.32 mGy-cmFINDINGS: BRAIN: | | Ventricles, sulci and cisterns are unremarkable for age. No areas ofincreased | | attenuation to suggest intracranial hemorrhage. There is no mass,mass effect, or | | midline shift. There are no abnormal extra-axial fluid or aircollections. There is | | preservation of the cook-white differentiation at thistime. There are mild scattered | | regions of periventricular and subcortical whitematter low density. Stable hypodensity | | in the left thalamus. SCALP/ CALVARIUM: The scalp and skull are intact and are | | unremarkable.SINUSES / ORBITS/ MASTOIDS: The visible mastoid air cells and paranasal | | sinusesare clear. The globes and retroconal contents are intact and are | | unremarkable.IMPRESSION -No CT evidence for an acute intracranial process.Remote lacunar | | infarct versus dilated perivascular space.The preliminary report is provided by | | Bernard on 05/29/2019 at 7:07 AM.Dictated and Signed by: Oskar Gutierrez MD | | Electronically signed: 05/29/2019 1:14 PM | |collections. There is preservation of the cook-white differentiation at this | |time. There are mild scattered regions of periventricular and subcortical white | |matter low density. Stable hypodensity in the left thalamus. | | | |SCALP/ CALVARIUM: The scalp and skull are intact and are unremarkable. | | | |SINUSES / ORBITS/ MASTOIDS: The visible mastoid air cells and paranasal sinuses | |are clear. The globes and retroconal contents are intact and are unremarkable. | | | |IMPRESSION - | | | |No CT evidence for an acute intracranial process. | | | |Remote lacunar infarct versus dilated perivascular space. | | | |The preliminary report is provided by Dr. Wagner on 05/29/2019 at 7:07 AM. | | | | | | | | | |Dictated and Signed by: Oskar Gutierrez MD | | Electronically signed: 05/29/2019 1:14 PM | + + + +---------+ + + | Performing | Address | City/State/Zipcode | Phone Number | | Organization | | | | + +---------+ + + | [facility] | | | | + +---------+ + + Drugs of Abuse, Screen, Urine (05/29/2019 6:43 AM PDT) + + + + + [...] + | [facility] | [address] | [place] | [phone] | | [facility] | | [address] | | | - LABORATORY | | | | + + + + + Salicylate Level (05/29/2019 5:52 AM PDT) + +-------+ + + + | Component | Value | Ref Range | Performed | Pathologist | | | | | At | Signature | + +-------+ + + + | Salicylate | <3.0 | <30.1 mg/dL | [facility] | | | Level | | | [facility] | | [...] [facility]. | [address] | [place], [place] | [phone] | | [facility] | | [address] | | | - LABORATORY | | | | + + + + + Acetaminophen Level (05/29/2019 5:52 AM PDT) + +-------+ + + + | Component | Value | Ref Range | Performed | Pathologist | | | | | At | Signature | + +-------+ + + + | Acetaminoph | <2 | <=2 ug/mL | [facility] | | | en Level | | | [facility] | | [...] [address] | [place] | [phone] | | [facility] | | [address] | | | - LABORATORY | | | | + + + + + Ethanol (05/29/2019 5:52 AM PDT) + +-------+ + + + | Component | Value | Ref Range | Performed | Pathologist | | | | | At | Signature | + +-------+ + + + | ALCOHOL, | <10 | <10 mg/dL | [facility] | | | SERUM/PLASM | | | [facility] | | | A | | | [...] + | [facility] | [address] | [place] | [phone] | | [facility] | | [address] | | | - LABORATORY | | | | + + + + + Comprehensive Metabolic Panel (05/29/2019 5:52 AM PDT) + + + + + + | Component | Value | Ref Range | Performed | Pathologist | | | | | At | Signature | + + + + + + | Na | 142 | 136 - 145 | [facility] | | | | | mmol/L | [facility] | | | | | | MEDICAL | | | | | | CENTER - | | | | | | LABORATORY | | + + + + + + | K | 3.9 | 3.4 - 5.1 | [facility] | [...] + + + + | Glucose | 101 | 60 - 106 mg/dL | [facility] | | | | | | [facility] | | | | | | MEDICAL | | | | | | CENTER - | | | | | | LABORATORY | | + + + + + + | BUN | 17 | 9 - 23 mg/dL | [facility] | | | | | | [facility] | | | | | | MEDICAL | | | | | | CENTER - | | | | | | LABORATORY | | + + + + + + | Creatinine | 1.11 | 0.70 - 1.30 | [facility] | | | | | mg/dL | [facility] | | | | | | [facility] | | | | | | CENTER - | | | | | | LABORATORY | | + + + + + + | eGFR if not | >60Comment: GLOMERULAR | >=60 | [facility] | | | | FILTRATION | mL/min/1.73m2 | [facility] | | | [place] | RATE,ESTIMATED | | MEDICAL | | | | mL/min/1.06b6Ykwq than | | CENTER - | | [...] + + + + | Calcium | 9.2 | 8.7 - 10.4 | [facility] | | | | | mg/dL | [facility] | | | | | | MEDICAL | | | | | | CENTER - | | | | | | LABORATORY | | + + + + + + | Albumin | 4.1 | 3.2 - 4.8 g/dL | [facility] | | | | | | [facility] | | | [facility] | | MEDICAL | | | | | | CENTER - | | | | | | LABORATORY | | + + + + + + | Bilirubin | 0.6 | 0.3 - 1.2 mg/dL | [facility] | | | Total | | | [facility] | | | | | | MEDICAL | | | | | | CENTER - | | | | | | LABORATORY | | + + + + + + | Total | 6.4 | 5.7 - 8.2 g/dL | [facility] | | | Protein | | | [facility] | | | | | | MEDICAL | | | | | | CENTER - | | | | | | LABORATORY | | + + + + + + | AST | 24 | 0 - 34 U/L | [facility] | | | | | | [facility] | | | | | | MEDICAL | | | | | | CENTER - | | | | | | LABORATORY | | + + + + + + | ALT | 34 | 10 - 49 U/L | [facility] | | | | | | [facility] | | | | | | MEDICAL | | | | | | CENTER - | | | | | | LABORATORY | | + + + + + + | Alkaline | 95 | 46 - 116 U/L | [facility] | | | Phosphatase | | | [facility] | | | | | | MEDICAL | | | | | | CENTER - | | | | | | LABORATORY | | + + + + + + | Globulin | 2.3 | 2.1 - 3.8 g/dL | [facility] | | | | | | [facility] | | | | | | MEDICAL | | | | | | CENTER - | | | | | | LABORATORY | | + + + + + + | Albumin/Clara | 1.8 | 0.8 - 1.9 | [facility] | | | bulin Ratio | | | [facility] | | | | | | MEDICAL | | | | | | CENTER - | | | | | | LABORATORY | | + + + + + + | BUN/Creatin | 15.3 | | [facility] | | | ine [...] [address] | [place] | [phone] | | [facility] | | [address] | | | - LABORATORY | | | | + + + + + CBC with Differential (05/29/2019 5:52 AM PDT) + + + + + + | Component | Value | Ref Range | Performed | Pathologist | | | | | At | Signature | + + + + + + | WBC | 6.9 | 4.0 - 11.0 K/uL | [facility] | | | | | | [facility] | | | | | | MEDICAL | | | | | | CENTER - | | | | | | LABORATORY | | + + + + + + | RBC | 4.15 (L) | 4.30 - 5.70 | [facility] | | | | | M/uL | [facility] | | | | | | MEDICAL | | | | | | CENTER - | | | | | | LABORATORY | | + + + + + + | Hemoglobin | 12.7 (L) | 13.5 - 18.0 | [facility] | | | | | g/dL | [facility] | | | | | | MEDICAL | | | | | | CENTER - | | | | | | LABORATORY | | + + + + + + | Hematocrit | 40.2 | 40.0 - 51.0 % | [facility] | | | | | | [facility] | | | | | | MEDICAL | | | | | | CENTER - | | | | | | LABORATORY | | + + + + + + | MCV | 96.9 | 83.0 - 101.0 fL | [facility] [...] + + + + | MCHC | 31.6 (L) | 32.0 - 36.0 | [facility] | [...] + + + + | RDW-SD | 44.1 | 35.1 - 46.3 fL | [facility] | | | | | | [facility] | | | | | | MEDICAL | | | | | | CENTER - | | | | | | LABORATORY | | + + + + + + | Platelet | 191 | 140 - 440 K/uL | [facility] | | | Count | | | [facility] | | | | | | MEDICAL | | | | | | CENTER - | | | | | | LABORATORY | | + + + + + + | MPV | 10.3 | 6.5 - 12.4 fL | [facility] | | | | | | [facility] | | | | | | MEDICAL | | | | | | CENTER - | | | | | | LABORATORY | | + + + + + + | % | 54.1 | 45.0 - 82.0 % | [facility] | | | Neutrophils | | | [facility] | | | | | | MEDICAL | | | | | | CENTER - | | | | | | LABORATORY | | + + + + + + | % | 33.2 | 20.0 - 45.0 % | [facility] | | | Lymphocytes | | | [facility] | | | | | | MEDICAL | | | | | | CENTER - | | | | | | LABORATORY | | + + + + + + | % Monocytes | 8.9 | 4.0 - 12.0 % | [facility] | | | | | | [facility] | | | | | | MEDICAL | | | | | | CENTER - | | | | | | LABORATORY | | + + + + + + | % | 3.3 | 0.0 - 5.0 % | [facility] [...] + + + | % Immature | 0.1 | 0.0 - 0.4 % | [facility] | | | Granulocyte | | | [facility] | | | s | | | MEDICAL | | | | | | CENTER - | | | | | | LABORATORY | | + + + + + + | Absolute | 3.72 | 1.80 - 8.50 | [facility] | | | Neutrophils | | K/uL | [facility] | | | | | | MEDICAL | | | | | | CENTER - | | | | | | LABORATORY | | + + + + + + | Absolute | 2.29 | 0.60 - 3.20 | [facility] | | | Lymphocytes | | K/uL | [facility] | | | | | | MEDICAL | | | | | | CENTER - | | | | | | LABORATORY | | + + + + + + | Absolute | 0.61 | 0.00 - 1.00 | [facility] | | | Monocytes | | K/uL | [facility] | | | | | | MEDICAL | | | | | | CENTER - | | | | | | LABORATORY | | + + + + + + | Absolute | 0.23 | 0.00 - 0.40 | [facility] | | | Eosinophils | | K/uL | [facility] | [...] + + + + | Absolute | 0.01 | 0.00 - 0.03 | [facility] | [...] [address] | [place] | [phone] | | [facility] | | [address] | | | - LABORATORY | | | | + + + + + documented in this encounter Visit Diagnoses + + | Diagnosis | + + | 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, unspecified | + + | Homelessness Lack of housing | + + | History of recent stroke | + + documented in this encounter Administered Medications + +--------+ +-------+------+------+ | Medication Order | MAR | Action | Dose | Rate | Site | | | Action | Date | | | | + +--------+ +-------+------+------+ | lisinopril (PRINIVIL, ZESTRIL) | Given | 05/29/20 | 20 mg | | | | tablet 20 mg 20 mg, Oral, ONCE, | | 19 8:35 | | | | | 05/29/19 at 0835, For 1 dose | | AM PDT | | | | + +--------+ +-------+------+------+ +---+---+ | | | +---+---+ + +-------+ +------+---+---+ | metoprolol tartrate (LOPRESSOR) | Given | 05/29/20 | 5 mg | | | | injection 5 mg 5 mg, | | 19 8:36 | | | | | Intravenous, ONCE, Flora 05/29/19 at | | AM PDT | | | | | 0835, For 1 dose | | | | | | + +-------+ +------+---+---+ +---+---+ | | | +---+---+ + +---------+ +--------+-------+---+ | sodium chloride 0.9% (NS) bolus | New Bag | 05/29/20 | 1,000 | 4000 | | | 1,000 mL 1,000 mL, Intravenous, | | 19 5:10 | mLs | mL/hr | | | Administer over 15 Minutes, | | AM PDT | | | | | ONCE, Flora 05/29/19 at 0540, For 1 | | | | | | | dose | | | | | | + +---------+ +--------+-------+---+ +---+---+ | | | +---+---+ documented in this encounter"
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
--- OUTSIDE RECORDS SUMMARY | ~2019-08-11 | XMS | Encounter Summary ---
Demographics + + + | Address | NEED ADDRESS | | | [place] [address] | + + + | Home Phone | | + + + | Preferred Language | Unknown | + + + | Marital Status | Single | + + + | Yazidi Affiliation | Unknown | + + + | Race | Unknown | + + + | Ethnic Group | Unknown | + + + Author + + + | Author | Located Within [facility] | | | and [place] | + + + | Organization | Located Within [facility] | | [...] Team Providers + +------+ + | Care [facility]ger Name | Role | Phone | + [...] + + | 04/07/ | Emergency | [facility] | [place], | Uncontrolled | | 2017 | | [facility] | [address] | hypertension | | | | CENTER [address] | [place], [place] | (Primary Dx) | | | | [place], [place] | [address] | | | | | [address] | | | | | | [phone] | | | +--------+ + + + [...] sent through Care Everywhere.Smoking,Tips for Quitting (Cardiovascular) (Burkin[place])documented in this encounter Medications at Time of [...]
--- OUTSIDE RECORDS SUMMARY | ~2019-08-11 | XMS | Encounter Summary ---
Demographics + + + | Address | NEED ADDRESS | | | [place] [address] | + + + | Home Phone | | + + + | Preferred Language | Unknown | + + + | Marital Status | Single | + + + | Protestant Affiliation | Unknown | + + + | Race | Unknown | + + + | Ethnic Group | Unknown | + + + Author + + + | Author | [facility] | | | and [place] | + + + | Organization | [facility] | | | [...] Team Providers + +------+ + | Care Engineer Conductor Name | Role | Phone | + +------+ + | No, Physician | PCP | Unavailable | + +------+ + Reason for Visit + + + | Reason | Comments | + + + | Appointment | no show on 05-05-17 needs rescheduled | + + + Encounter Details +--------+ + + + + | Date | Type | Department | Care Team | Description | +--------+ + + + + | 05/29/ | Telephone | [facility] | Nell Carrera, | Appointment (no show | | 2016 | | CARDIOLOGY [address] | on 05-05-17 needs | | | | [place], | [place], | rescheduled) | | | | [place] [address] | [place] [address] | | | | | [phone] | [phone] | | | | | | | [...]
--- OUTSIDE RECORDS SUMMARY | ~2019-08-11 | XMS | Encounter Summary ---
Demographics + + + | Address | NEED ADDRESS | | | [place] [address] | + + + | Home Phone | | + + + | Preferred Language | Unknown | + + + | Marital Status | Single | + + + | Buddhist Affiliation | Unknown | + + + [...] Team Providers + +------+ + | Care Sign Shop Supervisor Name | Role | Phone | + [...] + + | 08/31/ | Emergency | [facility] | [place], | Sprain of right | | 2018 | | [facility] | [address] [address] | medial ankle joint, | | | | CENTER [address] | [place] | initial encounter | | | | [place] | [address] | (Primary Dx) | | | | [address] | | | | | | [phone] | | | +--------+ + + + [...]
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
--- OUTSIDE RECORDS SUMMARY | ~2019-08-11 | XMS | Encounter Summary ---
Demographics + + + | Address | NEED ADDRESS | | | [place] [address] | + + + | Home Phone | | + + + | Preferred Language | Unknown | + + + | Marital Status | Single | + + + | Protestant Affiliation | Unknown | + + + | Race | Unknown | + + + | Ethnic Group | Unknown | + + + Author + + + | Author | [facility] | | | and [place] | + + + | Organization | [facility] | | | [...] Team Providers + +------+ + | Care Supplier Development Manager Name | Role | Phone | + +------+ + | No Physician | PCP | Unavailable | + +------+ + Encounter Details +--------+ + + + + | Date | Type | Department | Care Team | Description | +--------+ + + + + | 01/04/ | Hospital | [facility] | Dannie Peraza, | | | 2019 | Encounter | [facility] OT | OT | | | | | ACUTE [address] | | | | | | [place] | | | | | | [address] | | | | | | [phone] | | | +--------+ + + + [...]
--- OUTSIDE RECORDS SUMMARY | ~2019-08-11 | XMS | Encounter Summary ---
Demographics + + + | Address | NEED ADDRESS | | | [place] [address] | + + + | Home Phone | | + + + | Preferred Language | Unknown | + + + | Marital Status | Single | + + + | Yarsani Affiliation | Unknown | + + + | Race | Unknown | + + + | Ethnic Group | Unknown | + + + Author + + + | Author | [facility] | | | and [place] | + + + | Organization | [facility] | | | [...] Team Providers + +------+ + | Care Cigar Packer Name | Role | Phone | + [...] + + | 06/23/ | Emergency | [facility] | [place] | Chest pain, | | 2016 | | [facility] | Eric Quijano MD | unspecified type | | | | CENTER [address] | [address] | (Primary Dx); | | | | [place], [place] | [place], [place] | Alcohol use; | | | | [address]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 | [address] | [place] | [phone] | | [facility] | | [address] | | | - LABORATORY | | [...] | | | | mmol/L | [facility] | | | | | | MEDICAL [...] | | GLOMERULAR FILTRATION | mL/min/1.73m2 | [facility] | | | CHINESE | RATE,ESTIMATED | | MEDICAL | | | | mL/min/1.99b9Mhsl than | | CENTER - | | [...] | | | | | mg/dL | [facility] | | | | | | MEDICAL | | | | | | CENTER - | | | | | | LABORATORY | | + + + + + + | Albumin | 3.6 | 3.2 - 5.0 g/dL | [facility] | | | | | | [facility] | | | | [...] [address] | [place] | [phone] | | [facility] | | [address] | | | - LABORATORY | | [...] [address] | [place] | [phone] | | [facility] | | [address] | | | - LABORATORY | | [...] | | | | | | [employer] | | | | | [...] ST. | [address] | [place], [place] | [phone] | | [facility] | | [address] | | | - LABORATORY | | [...] [address] | [place] | [phone] | | [facility] | | [address] | | | - LABORATORY | | [address] | [place] | [phone] | | [facility] | | [address] | | | - LABORATORY | | [...] ST. | [address] | [place], [place] | [phone] | | [facility] | | [address] | | | - LABORATORY | | [...] [address] | [place] | [phone] | | [facility] | | [address] | | | - LABORATORY | | [...] + | [facility] | [address] | [place] | [phone] | | [facility] | | [address] | | | - LABORATORY | | [...] | | | | NINFA TORRES MD ([id number]) | | | | | | on [...]
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
--- OUTSIDE RECORDS SUMMARY | ~2019-08-11 | XMS | Encounter Summary ---
Demographics + + + | Address | NEED ADDRESS | | | [place] [address] | + + + | Home Phone | | + + + | Preferred Language | Unknown | + + + | Marital Status | Single | + + + | Confucianist Affiliation | Unknown | + + + [...] Team Providers + +------+ + | Care [employer] Crimper Name | Role | Phone | + [...] | | | | CENTER [address] | SAADIA ZEE MD | Dx); Homelessness; | | | | Saadia Zee MD | [id number] | History of recent | | | | [address] | | stroke | | | | [phone] | León Ross | | | | | | MD Grey Fishman | | | | | | [place]AY[place]NN [place]LYNN [place] | | | | | | [address] | | | | | | [phone] | | | | | | | [...] + | [facility] | [address] | [place] ZeeH[place]AR[place] | [phone] | | [facility] | | [address] | | | - LABORATORY | | [...] ST. | [address] | [place], [place] | [phone] | | [facility] | | [address] | | | - LABORATORY | | [...] [address] | [place] | [phone] | | [facility] | | [address] | | | - LABORATORY | | [...] + | [facility] | [address] | Saadia Zee [place] | [phone] | | [facility] | | [address] | | | - LABORATORY | | [...] mL/min/1.73m2 | [facility] | | | MALAGASY | RATE,ESTIMATED | | MEDICAL | | | | mL/min/1.66h7Hpge than | | CENTER - | | [...] [address] | [place] | [phone] | | [facility] | | [address] | | | - LABORATORY | | [...] [address] | [place] | [phone] | | [facility] | | [address] | | | - LABORATORY | | [...]
--- OUTSIDE RECORDS SUMMARY | ~2019-08-11 | XMS | Encounter Summary ---
Demographics + + + | Address | NEED ADDRESS | | | [place] [address] | + + + | Home Phone | | + + + | Preferred Language | Unknown | + + + | Marital Status | Single | + + + | [employer] Affiliation | Unknown | + + + | Race | Unknown | + + + | Ethnic Group | Unknown | + + + Author + + + | Author | [facility] | | | and [place] | + [...] | + + +---------+ + | Deb ceci | ECON | Unknown | | + + +---------+ + | Bong Finley | ECON | Unknown | | + + +---------+ + Care Team Providers + +------+ + | Care Manager Of School Name | Role | Phone | + +------+ + | No, Physician | PCP | Unavailable | + +------+ + Reason for Visit + + + | Reason | Comments | + + + | Chest Pain | | + + + Auth/Cert +--------+--------+ + + + + | Status | Reason | Specialty | Diagnoses / | Referred By | Referred To | | | | | Procedures | Contact | Contact | +--------+--------+ + + + + | | | | Diagnoses | | | | | | | Unstable | | | | | | | angina (HCC) | | | | | | | | | | +--------+--------+ + + + + Encounter Details +--------+ + + + + | Date | Type | Department | Care Team | Description | +--------+ + + + + | 11/15/ | Hospital | [facility] | [place] | ACS (acute coronary | | 2019 - | Encounter | [facility] | León Fishman MD [address] | syndrome) (HCC) | | | | [address] [place] | [address] [place] | (Primary Dx); | | 11/18/ | | [place] [id number] | [place] [address] | Unstable angina | | 2019 | | [phone] | [phone] | ([facility]); Essential | | | | | | hypertension with | | | | | Edy Das MD | goal blood pressure | | | | | [address] | less than 130/80; | | | | | [place], [place] | NSTEMI (non-ST | | | | | [id number] | elevated myocardial | | | | | | infarction) ([facility]) | | | | | Reji Gonzales MD | | +--------+ + + + + [...] + + + | Blood Pressure | 148/90 | 11/18/2018 11:43 AM | | | | | PDT | | + + + + + | Pulse | 55 | 11/18/2018 11:43 AM | | | | | PDT | | + + + + + | Temperature | 36.3 C (97.4 F) | 11/18/2018 11:43 AM | | | | | PDT | | + + + + + | Respiratory Rate | 18 | 11/18/2018 11:43 AM | | | | | PDT | | + + + + + | Oxygen Saturation | 93% | 11/18/2018 11:43 AM | | | | | PDT | | + + + + + | Inhaled Oxygen | - | - | | | Concentration | | | | + + + + + | Weight | 89.4 kg (197 lb) | 11/17/2018 8:00 AM | | | | | PDT | | + + + + + | Height | 182.9 cm (6') | 11/15/2018 2:30 PM | | | | | PDT | | + + + + + | Body Mass Index | 26.72 | 11/15/2018 2:30 PM | | | | | PDT | | + + + + + documented in this encounter Discharge Summaries Edy Dsa MD - 11/18/2018 8:34 AM PDT DISCHARGE SUMMARY PATIENT NAME/: Dannie Win, (1960) DATE OF ADMISSION: 11/15/2018 DATE OF DISCHARGE: 11/18/2018 ADMITTING DIAGNOSIS: NSTEMI (non-ST elevated myocardial infarction) (HCC) PRIMARY CARE PROVIDER: No Physician on file DISCHARGE DIAGNOSES: Tachycardia related EKG changes DISPOSITION: Discharge to [facility] CARDIAC PROCEDURES AND FINDINGS: Final Impression/Recommendation 1. Persantine EKG is negative. 2. Abnormal Persantine sestamibi myocardial perfusion imaging study with a medium-sized, p redominantly fixed defect of a moderate severity in a proximal and mid inferior wall. 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 Normal left ventricular size and wall thickness. There is a hypokinesis of the inferior wall. Overall , left ventricular significant is moderately decreased. LVEF by gated SPECT is 37%. Conclusion 1. Mild dilatation left ventricle with mild decrease in overall contractility on the dusty ternal long axis view. 2. On parasternal long axis view mild inferior hypokinesis. 3. Ejection fraction calculated at 70% and visually around 50% 4. Normal aortic valve 5. Normal left atrium mitral valve 6. Normal right heart valves and chambers 7. Small anterior pericardial effusion. 8. Likely limited study. There appears to be some mild wall motion abnormalities on some views. 9. No significant valvular heart disease OTHER FINDINGS OF NOTE: None SUMMARY OF HISTORY AND PHYSICAL: Patient is admitted with episodes of chest pains and EKG s howing ST T changes. SUMMARIZED HOSPITAL COURSE: Patient was hospitalized and observed. His chest pain is resol eduin after nitroglycerin. He had serial troponins which peaked that 0.06. He had a noninvas calixto workup including nuclear scan showing fixed defects. He had no further chest pains. He ambulated without any problems. His blood pressure was not well controlled but he refused to take medications. He is unable to take and obtain med ications on the outside without insurance or funds. DISCHARGE EXAM: General: Cooperative and quiet Heart - regular rate and rhythm, S1 and S2 normal, no murmur, rub, or gallop. Lungs - clear to auscultation bilaterally Neurologic - Grossly normal. MEDS: Lisinopril 10 mg qd PATIENT I NSTRUCTIONS: Activity: Activity as tolerated Diet: cardiac diet Other instructions: Follow-up: With physician when established residence Time spent on discharge planning: less than 30 minutes Portions of this chart may have been created with Ocelus voice recognition software. Occasi onal wrong-word or sound-alike substitutions may have occurred due to the inherent rangel itations of voice recognition software. Please read the chart carefully and recognize, using context, where these substitutions have occurred. documented in this encounter Medications at Time [...] documented as of this encounter Progress Notes Ryann Phelan PharmD - 11/18/2018 6:39 AM PDT PHARMACY SERVICES: ADMISSION MEDICATION REVIEW Dannie Win is a 58 y.o. male admitted on 11/15/2018. Patient is a reliable historian. Location of Patient when reviewed: ED X Medical Floor Patient s prior to admit medication and over the counter (OTC) medications/herbal supplem ents list obtained from: X Verbal interview X Patient UNABLE to recall name, strength, and direction X Pharmacy list names: [facility] Vaccines up to date? 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 Provider lisinopril (PRINIVIL, ZESTRIL) 10 mg tablet Take 1 tablet by mouth Daily. Patient not takvlad ng: Reported on 11/15/2018 Not Taking 30 tablet Nell Carrera MD Medication review performed and electronically signed by Diann Llanes, Cutter Helper 2018 15:54 Reviewed by Ryann Phelan, PharmD 11/18/2018 6:37 Edy Cook MD - 11/17/2018 1:39 PM PDTNuclear scan shows fixed inferior defct. bp responsive to medical treatment. Will observer ovrleyla and dc in am/ Edy Cook MD - 11/17/2018 10:00 AM PDTFormatting of this note might be dif ferent from the original. Hospital Day: 3 DATE/TIME: 11/17/2018 10:00 58 y.o. year old male hospitalized with <principal problem not specified> which is unchange d Patient has no further episodes of chest pains. His EKGs have normalized. Bone is have no t elevated and he is awaiting a nuclear test. CURRENT INFUSIONS CURRENT MEDICATIONS aspirin 81 mg Oral Daily atenolol 50 mg Oral Daily enoxaparin 1 mg/kg Subcutaneous 2 times per day lisinopril 10 mg Oral Daily And hydroCHLOROthiazide 12.5 mg Oral Daily isosorbide mononitrate 30 mg Oral Daily I personally reviewed the above medications. OBJECTIVE: Temp: 36.5 C (97.7 F) BP: 170/80 Pulse: 63 Resp: 15 SpO2: 98 % on Min/Max Temp past 24 hours:Temp Av.9 C (98.5 F) Min: 36.5 C (97.7 F) Max: 3 7.5 C (99.5 F) Intake/Output Summary (Last 24 hours) at 11/17/18 1000 Last data filed at 11/17/18 0641 Gross per 24 hour Intake 2400 ml Output 2925 ml Net -525 ml Wt. Admission: Weight: 86.2 kg (190 lb) Wt. Current: Weight: 89.4 kg (197 lb) General: alert, appears stated age and cooperative Heart: Regular rate and rhythm Lungs: clear Abdomen: abdomen is soft without significant tenderness, masses, organomegaly or guarding Recent Results (from the past 24 hour(s)) Troponin I Result Value Ref Range Troponin I 0.04 <0.06 ng/mL NM Nuclear Stress Test (Vasodilator) Result Value Ref Range BASELINE HEART RATE 75 bpm BASELINE BLOOD PRESSURE 152/105 mmHg PEAK HEART RATE 84 PEAK BLOOD PRESSURE 162/95 mmHG Target HR 136 Percent HR 53 Recent Labs Lab 11/17/18 0357 11/16/18 0607 11/16/18 0044 11/15/18 1753 11/15/18 1143 TROPONIN 0.04 0.05 0.06* 0.07* 0.03 Xr Chest Ap Portable Result Date: 11/15/2018 EXAM: XR CHEST AP PORTABLE dated 11/15/2018 11:40 AM HISTORY: CHEST PAIN Comparison: 017. TECHNIQUE: A single portable view of the chest. FINDINGS: The lungs are symmetrically a erated. Lung volumes are low. They are clear. There are no large pleural effusions. There is no pneumothorax. The cardiac and mediastinal contours are not enlarged. No acute osseo us abnormalities. Healed fracture deformity in the left clavicle. IMPRESSION - No radiograph ic evidence for acute disease in the chest. Dictated and Signed by: Oskar Gutierrez MD Marilu ctronically signed: 11/15/2018 12:24 PM ASSESSMENT AND PLAN: 1. Presentation was chest pains and abnormal EKG. Now stabilized on medical therapy. Bloo d pressure however is still not controlled. Awaiting nuclear treadmill test. Increase his medications for blood pressure. Electronically Signed by: Edy Das MD [facility] 11/17/2018 10:00 [facility] Joey, Edy Gonzalez MD - 12:36 PM PDT Hospital Day: 2 DATE/TIME: 11/16/2018 12:36 Patient seen in follow-up after presenting with chest pains with the EKG was abnormal ST ch anges while tachycardic. Patient has no further chest pains. His heart rate has slowed down EKG has normalized. Bl ood pressure remains elevated. CURRENT INFUSIONS sodium chloride 0.9% 125 mL/hr at 11/16/18 0442 CURRENT MEDICATIONS aspirin 81 mg Oral Daily atenolol 50 mg Oral Daily enoxaparin 1 mg/kg Subcutaneous 2 times per day lisinopril 10 mg Oral Daily And hydroCHLOROthiazide 12.5 mg Oral Daily isosorbide mononitrate 30 mg Oral Daily I personally reviewed the above medications. OBJECTIVE: Temp: 37.5 C (99.5 F) BP: 135/85 Pulse: 59 Resp: 15 SpO2: 96 % on Min/Max Temp past 24 hours:Temp Av.9 C (98.5 F) Min: 36.4 C (97.5 F) Max: 3 7.5 C (99.5 F) Intake/Output Summary (Last 24 hours) at 11/16/18 1236 Last data filed at 11/16/18 0646 Gross per 24 hour Intake 3464.5 ml Output 525 ml Net 2939.5 ml Wt. Admission: Weight: 86.2 kg (190 lb) Wt. Current: Weight: 85.9 kg (189 lb 6 oz) General: alert, appears stated age and cooperative Heart: Regular rate and rhythm or S1S2 present Lungs: clear Abdomen: abdomen is soft without significant tenderness, masses, organomegaly or guarding Recent Results (from the past 24 hour(s)) Culture, MRSA Result Value Ref Range Culture Negative for MRSA by chromogenic agar method ECG 12 lead Result Value Ref Range VENTRICULAR RATE EKG 79 BPM ATRIAL RATE 79 BPM P-R INTERVAL 130 ms QRS DURATION 82 ms Q-T INTERVAL 380 ms Q-T INTERVAL (CORRECTED) 435 ms P WAVE AXIS 66 degrees QRS AXIS -20 degrees T AXIS 79 degrees INTERPRETATION TEXT Normal sinus rhythm with sinus arrhythmia Possible Left atrial enlargement Borderline ECG When compared with ECG of 15-NOV-2018 11:18, (Unconfirmed) Vent. rate has decreased BY [address] elevation in lead aVR, V1-[address] depression has improved. Confirmed by BRIAN ZIMMERMAN, NINFA ([id number]) on 11/15/2018 5:54:47 PM ECHO Complete w Contrast Result Value Ref Range BASELINE BLOOD PRESSURE 165/107 mmHg Patient Weight (lbs) 189 Patient Height 6'0" LVIDd 5.89 cm FS 27 % LA volume 84.33 mL Aortic arch 2.91 cm AV mean gradient 3.48 mmHg IVRT 100.35 msec LVOT peak erica 86.84 cm/s LVOT peak VTI 14.31 cm AV peak erica 122.25 cm/s AV VTI 19.9 cm AV peak gradient 5.98 mmHg LA Volume Index 41 mL/m2 AV LVOT Peak Gradient 3.02 mmHg AV LVOT Mean Gradient 1.49 mmHg LV Diastolic Length 4C 9.14 cm LV Jones's Biplane EF 70 % LV ED Volume (Jones's) 69.7 ml LV ED Volume Index 34 ml/m2 LV ES Volume 20.59 ml LVOT Mean Velocity 56.64 cm/s MV E' Septal Velocity 6 cm/s AV Mean Velocity 89.88 cm/s LA/Aorta Ratio 0.92 LA Major 0.199 cm LV ES Volume Index 10 ml/m2 Aortic Root Diameter 4.58 cm IVS Diastolic Thickness MM 0.96 cm LVPW Diastolic Thickness MM 0.96 cm IVS Systolic Thickness MM 1.13 cm LV Systolic Diameter MM 4.29 cm LVPW Systolic Thickness MM 1.08 cm AV Cusp Seperation MM 2.67 cm LA Systolic Diameter MM 4.2 cm TAPSE 2.3 cm Troponin I Result Value Ref Range Troponin I 0.07 (H) <0.06 ng/mL Heparin XA Result Value Ref Range HEPARIN ANTI-Xa 0.23 IU/mL Troponin I Result Value Ref Range Troponin I 0.06 (H) <0.06 ng/mL CBC no Differential Result Value Ref Range WBC 10.6 4.0 - 11.0 K/uL RBC 4.87 4.30 - 5.70 M/uL Hemoglobin 14.9 13.5 - 18.0 g/dL Hematocrit 44.5 40.0 - 51.0 % MCV 91.4 83.0 - 101.0 fL MCH 30.6 28.0 - 35.0 pg MCHC 33.5 32.0 - 36.0 g/dL RDW-CV 12.2 <15.0 % RDW-SD 40.7 35.1 - 46.3 fL Platelet Count 200 140 - 440 K/uL MPV 11.0 6.5 - 12.4 fL % nRBC 0 0 - 2 per 100 WBC's Absolute nRBC 0.00 0.00 - 0.01 K/uL Heparin XA Result Value Ref Range HEPARIN ANTI-Xa 0.15 IU/mL Protime INR Result Value Ref Range Protime 13.1 11.3 - 13.9 seconds INR 1.0 0.9 - 1.1 Extra Lavender Top Tube Result Value Ref Range Extra Lavender Top Tube Done Troponin I Result Value Ref Range Troponin I 0.05 <0.06 ng/mL Recent Labs Lab 11/16/18 0607 11/16/18 0044 11/15/18 1753 11/15/18 1143 11/15/18 1105 TROPONIN 0.05 0.06* 0.07* 0.03 0.03 Xr Chest Ap Portable Result Date: 11/15/2018 EXAM: XR CHEST AP PORTABLE dated 11/15/2018 11:40 AM HISTORY: CHEST PAIN Comparison: 017. TECHNIQUE: A single portable view of the chest. FINDINGS: The lungs are symmetrically a erated. Lung volumes are low. They are clear. There are no large pleural effusions. There is no pneumothorax. The cardiac and mediastinal contours are not enlarged. No acute osseo us abnormalities. Healed fracture deformity in the left clavicle. IMPRESSION - No radiograph ic evidence for acute disease in the chest. Dictated and Signed by: Oskar Gutierrez MD Marilu ctronically signed: 11/15/2018 12:24 PM ASSESSMENT AND PLAN: 1. Patient appears to have stabilized. Unclear if he had ischemia or related EKG changes. Troponins are equivocal. We'll start oral medications and DC IV heparin and nitroglycerin. Clear testing tomorrow t o evaluate coronary artery disease. Electronically Signed by: Edy Das MD [facility] 11/16/2018 12:36 [facility] achynadNelia Pha rmD - 11/16/2018 5:23 AM PDT HEPARIN PER PHARMACY: FOLLOW UP NOTE Dannie Win is a 58 y.o. male admitted on 11/15/2018 10:54. Heparin infusion is or dered. Recent Labs Lab 11/16/18 0405 11/16/18 0044 11/15/18 1143 HGB -- 14.9 -- -- HCT -- 44.5 -- -- PLT -- 200 -- -- INR 1.0 -- -- -- HEPANTIXA 0.15 -- < > -- PTT -- -- -- 32 < > = values in this interval not displayed. Diagnosis: ACS Protocol: CARDIAC DOSE 0.2- 0.4 units/mL Date 11/15 11/15 11/16 Time of Xa test - 1957 0400 Xa - 0.23 0.15 PTT 32 - -- Platelets 219 - - Current (units/hr) 0 1050 1050 Bolus (units) 5200 - - Hold (minutes) - - New (units/hr) 1050 - 1200 Weight at start of infusion 86.2 kg (adjustments based on this dosing weight) ASSESSMENT/PLAN: 1. Dosing plan: Any adverse events or interruptions in therapy: No per rn Bolus: None Infusion: Increase by 2 units/kg/hr to 1200 units/kg/hr Per dosing protocol 2. Discussed and coordinated with nurse 3. Weight. Admission: Weight: 86.2 kg (190 lb) Wt. Current: Weight: 85.9 kg (189 lb 6 oz) 4. Monitoring - report to attending provider if: HGB < 8 g/dL or drop greater than 2 g/dL from baseline = 16.5 g/dL HCT < 25% or drop greater than 6 points from baseline = 49.8 % PLT < 100 K/uL or drop greater than 50% from baseline = 109.5 K/uL Rate greater than 25 units/kg/hr = 2155 units/hr ? CBC without diff every other day while on Heparin. ? Xa 6hrs after infusion initiation and any rate change until 2 consecutive Xa are in range then daily. ? If bolus is 5,000 units or greater, consider ordering Xa/PTT in 8 hours ? Next anti-Xa ordered for: 11/16 @ 1130. IMPROVE Bleeding Risk Score Calculator Table: Heparin Infusion Dosing and Monitoring Per P&T approved Heparin Infusion Protocol Electronically signed by: Nelia Chavez, PharmD 11/16/2018 5:24 Tj Castelan , PharmD - 11/15/2018 11:34 AM PDTFormatting of this note might be different from the origin al. HEPARIN MONITORING AND DOSING PER PHARMACY Dannie Win is a 58 y.o. male admitted on 11/15/2018 10:54. Heparin infusion is or dered. Diagnosis: ACS Protocol: CARDIAC DOSE 0.2- 0.4 units/mL Maximums: bolus 7,000 units, infusion 1,400 unit/h r Initial assessment: Describe any recent anticoagulant use prior to heparin initiation: none Bleeding risks NO History of liver dysfunction or ETOH abuse: NO History of HIT: NO Reason for no bolus or use of Cardiac dose in non-cardiac pts: n/a Recent Labs Lab 11/15/18 1958 11/15/18 1143 11/15/18 1105 HGB -- -- 18.5* HCT -- -- 55.8* PLT -- -- 219 HEPANTIXA 0.23 -- -- PTT -- 32 -- Date 11/15 11/15 11/16 Time of Xa test - 1957 0400 Xa - 0.23 PTT 32 - Platelets 219 - Current (units/hr) 0 1050 1050 Bolus (units) 5200 - Hold (minutes) - New (units/hr) 1050 - * Weight at start of infusion 86.2 kg (adjustments based on this dosing weight) ASSESSMENT/PLAN: 1. Communicate with prescriber within 24 hours of infusion start to discuss bleeding risks, clotting risks, goals for therapy, and any other prescriber preferences. 2. DC other anticoagulants as appropriate (list): none 3. Dosing plan: Any adverse events or interruptions in therapy: No Bolus: None Infusion: Continue current infusion rate 1050 units/hr Per dosing protocol 4. Discussed and coordinated with nurse 5. Weight. Admission: Weight: 86.2 kg (190 lb) Wt. Current: Weight: 85.9 kg (189 lb 6 o z) 6. Monitoring - report to attending provider if: HGB < 8 g/dL or drop greater than 2 g/dL from baseline = 16.5 g/dL HCT < 25% or drop greater than 6 points from baseline = 49.8 % PLT < 100 K/uL or drop greater than 50% from baseline = 109.5 K/uL Rate greater than 25 units/kg/hr = 2155 units/hr ? Stat PTT, PT/INR, and CBC without diff. if not already done. Draw prior to giving heparin bolus or starting infusion, then initiate heparin therapy MIKE after labs are drawn. Consider anti-Xa if prior oral Xa inhibitor or LMWH and evaluate mary l function. ? CBC without diff every other day while on Heparin. ? Xa 6hrs after infusion initiation and any rate change until 2 consecutive Xa are in range then daily. ? If bolus is 5,000 units or greater, consider ordering Xa/PTT in 8 hours ? Next anti-Xa ordered for: 11/16 @ 0400. IMPROVE Bleeding Risk Score Calculator Table: Heparin Infusion Dosing and Monitoring Per P&T approved Heparin Infusion Protocol Electronically signed by: Tj Najera PharmAmanda 11/15/2018 20:35 documented in this encounter Plan of Treatment Not on filedocumented as of this encounter Procedures + +--------+ + + + | Procedure Name | Priori | Date/Time | Associated Diagnosis | Comments | | | ty | | | | + +--------+ + + + | NM NUCLEAR STRESS | Routin | 11/17/2018 | | Results for this | | TEST (PHARMACOLOGIC | e | 12:26 PM | | procedure are in the | | - VASODILATOR) | | PDT | | results section. | + +--------+ + + + | TROPONIN I | Routin | 11/17/2018 | | Results for this | | | e | 3:57 AM | | procedure are in the | | | | PDT | | results section. | + +--------+ + + + | TROPONIN I | Routin | 11/16/2018 | | Results for this | | | e | 6:07 AM | | procedure are in the | | | | PDT | | results section. | + +--------+ + + + | HEPARIN XA, | Routin | 11/16/2018 | | Results for this | | UNFRACTIONATED | e | 4:05 AM | | procedure are in the | | | | PDT | | results section. | + +--------+ + + + | EXTRA LAVENDER TOP | Routin | 11/16/2018 | | Results for this | | TUBE | e | 4:05 AM | | procedure are in the | | | | PDT | | results section. | + +--------+ + + + | PROTIME INR | Routin | 11/16/2018 | | Results for this | | | e | 4:05 AM | | procedure are in the | | | | PDT | | results section. | + +--------+ + + + | TROPONIN I | Routin | 11/16/2018 | | Results for this | | | e | 12:44 AM | | procedure are in the | | | | PDT | | results section. | + +--------+ + + + | CBC NO DIFFERENTIAL | Routin | 11/16/2018 | | Results for this | | | e | 12:44 AM | | procedure are in the | | | | PDT | | results section. | + +--------+ + + + | HEPARIN XA, | Routin | 11/15/2018 | | Results for this | | UNFRACTIONATED | e | 7:58 PM | | procedure are in the | | | | PDT | | results section. | + +--------+ + + + | TROPONIN I | Routin | 11/15/2018 | | Results for this | | | e | 5:53 PM | | procedure are in the | | | | PDT | | results section. | + +--------+ + + + | ECHO COMPLETE W | Routin | 11/15/2018 | | Results for this | | CONTRAST | e | 4:08 PM | | procedure are in the | | | | PDT | | results section. | + +--------+ + + + | ECG 12 LEAD | STAT | 11/15/2018 | | Results for this | | | | 2:20 PM | | procedure are in the | | | | PDT | | results section. | + +--------+ + + + | CULTURE, MRSA | Routin | 11/15/2018 | | Results for this | | | e | 1:21 PM | | procedure are in the | | | | PDT | | results section. | + +--------+ + + + | TROPONIN I | Routin | 11/15/2018 | | Results for this | | | e | 11:43 AM | | procedure are in the | | | | PDT | | results section. | + +--------+ + + + | PTT | STAT | 11/15/2018 | | Results for this | | | | 11:43 AM | | procedure are in the | | | | PDT | | results section. | + +--------+ + + + | ALCOHOL | STAT | 11/15/2018 | | Results for this | | | | 11:43 AM | | procedure are in the | | | | PDT | | results section. | + +--------+ + + + | XR CHEST AP PORTABLE | STAT | 11/15/2018 | | Results for this | | | | 11:40 AM | | procedure are in the | | | | PDT | | results section. | + +--------+ + + + | ECG 12 LEAD | STAT | 11/15/2018 | | Results for this | | | | 11:18 AM | | procedure are in the | | | | PDT | | results section. | + +--------+ + + + | LIPID PANEL | STAT | 11/15/2018 | | Results for this | | | | 11:05 AM | | procedure are in the | | | | PDT | | results section. | + +--------+ + + + | EXTRA BLUE TOP TUBE | Routin | 11/15/2018 | | Results for this | | | e | 11:05 AM | | procedure are in the | | | | PDT | | results section. | + +--------+ + + + | TROPONIN I | STAT | 11/15/2018 | | Results for this | | | | 11:05 AM | | procedure are in the | | | | PDT | | results section. | + +--------+ + + + | CBC WITH | STAT | 11/15/2018 | | Results for this | | DIFFERENTIAL | | 11:05 AM | | procedure are in the | | | | PDT | | results section. | + +--------+ + + + | B TYPE NATRIURETIC | STAT | 11/15/2018 | | Results for this | | PEPTIDE | | 11:05 AM | | procedure are in the | | | | PDT | | results section. | + +--------+ + + + | COMPREHENSIVE | STAT | 11/15/2018 | | Results for this | | METABOLIC PANEL | | 11:05 AM | | procedure are in the | | | | PDT | | results section. | + +--------+ + + + | ECG 12 LEAD | STAT | 11/15/2018 | | Results for this | | | | 10:56 AM | | procedure are in the | | | | PDT | | results section. | + +--------+ + + + documented in this encounter Results NM Nuclear Stress Test (Vasodilator) (11/17/2018 12:26 PM PDT) + +---------+ + + + | Component | Value | Ref Range | Performed | Pathologist | | | | | At | Signature | + +---------+ + + + | BASELINE | 75 | bpm | [facility] | | | HEART RATE | | | | | + +---------+ + + + | BASELINE | 152/105 | mmHg | [facility] | | | BLOOD | | | | | | PRESSURE | | | | | + +---------+ + + + | PEAK HEART | 84 | | [facility] | | | RATE | | | | | + +---------+ + + + | PEAK BLOOD | 162/95 | mmHG | [facility] | | | PRESSURE | | | | | + +---------+ + + + | Target HR | 136 | | [facility] | | + +---------+ + + + | Percent HR | 53 | | [facility] | | + +---------+ + + + | LVEF-SPECT | 37 | % | [facility] | | | NUCLEAR | | | | | | STRESS/VIAB | | | | | | ILITY | | | | | + +---------+ + + + | ST | 0.0 | mm | [facility] | | | Elevation | | | | | | (mm) | | | | | + +---------+ + + + + + | Specimen | + + | | + + + + + | Narrative | Performed At | + + + | 1. | [facility] | | Persantine EKG is negative.2. Abnormal Persantine sestamibi | | | myocardial perfusion imaging study with a medium-sized, predominantly | | | fixed defect of a moderate severity in a proximal and mid inferior | | | wall. 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 Normal left ventricular size and wall | | | thickness. There is a hypokinesis of the inferior wall. Overall, | | | left ventricular significant is moderately decreased. LVEF by gated | | | SPECT is 37%. | | + + + + +---------+ + + | Performing | Address | City/State/Zipcode | Phone Number | | Organization | | | | + +---------+ + + | [facility] | | | | + +---------+ + + Troponin I (11/17/2018 3:57 AM PDT) + +-------+ + + + | Component | Value | Ref Range | Performed | Pathologist | | | | | At | Signature | + +-------+ + + + | Troponin I | 0.04 | <0.06 ng/mL | [facility] | | | | | [...] [address] | [place] | [phone] | | [facility] | | [address] | | | - LABORATORY | | | | + + + + + Troponin I (11/16/2018 6:07 AM PDT) + +-------+ + + + | Component | Value | Ref Range | Performed | Pathologist | | | | | At | Signature | + +-------+ + + + | Troponin I | 0.05 | <0.06 ng/mL | [facility] | | | | | [...] ST. | [address] | [place], [place] | [phone] | | [facility] | | [address] | | | - LABORATORY | | | | + + + + + Extra Lavender Top Tube (11/16/2018 4:05 AM PDT) + +-------+ + + + | Component | Value | Ref Range | Performed | Pathologist | | | | | At | Signature | + +-------+ + + + | Extra | Done | | [facility] | | | Lavender | | | [facility] | | | Top Tube | [...] [address] | [place] | [phone] | | [facility] | | [address] | | | - LABORATORY | | | | + + + + + Protime INR (11/16/2018 4:05 AM PDT) + + + + + + | Component | Value | Ref Range | Performed | Pathologist | | | | | At | Signature | + + + + + + | Prothrombin | 13.1 | 11.3 - 13.9 | [facility] | [...] | | Anticoagulation Range: | | [facility] | | | | 2.0 - 3.0High [...] [address] | [place] | [phone] | | [facility] | | [address] | | | - LABORATORY | | | | + + + + + Heparin XA (11/16/2018 4:05 AM PDT) + +-------+ + + + | Component | Value | Ref Range | Performed | Pathologist | | | | | At | Signature | + +-------+ + + + | Heparin, | 0.15 | IU/mL | [facility] | | | Unfractiona | | | [facility] | | [facility] | | | [facility] | | | | | | CENTER - | | | | | | LABORATORY | | + +-------+ + + + + + | Specimen | + + | Blood | + + + + + | Narrative | Performed At | + + + | Unfractionated Heparin (UFH) Therapeutic range: 0.30 - 0.70 IU/mL | [facility] | | | [facility] | | | - LABORATORY | + + + + + + + + | Performing | Address | City/State/Zipcode | Phone Number | | Organization | | | | + + + + + | [facility] | [address] | [place] | [phone] | | [facility] | | [address] | | | - LABORATORY | | | | + + + + + CBC no Differential (11/16/2018 12:44 AM PDT) + +-------+ + + + | Component | Value | Ref Range | Performed | Pathologist | | | | | At | Signature | + +-------+ + + + | WBC | 10.6 | 4.0 - 11.0 K/uL | [facility] | | | | | | [facility] | | | | | | [facility]ICAL | | | | | | CENTER - | | | | | | LABORATORY | | + +-------+ + + + | RBC | 4.87 | 4.30 - 5.70 | [facility] | | | | | M/uL | [facility] | | | | | | [facility] | | | | | | CENTER - | | | | | | LABORATORY | | + +-------+ + + + | Hemoglobin | 14.9 | 13.5 - 18.0 | [facility] | | | | | g/dL | [facility] | | | | | | [facility] | | | | | | CENTER - | | | | | | LABORATORY | | + +-------+ + + + | Hematocrit | 44.5 | 40.0 - 51.0 % | [facility] | | | | | | [facility] | | | | | | [facility] | | | | | | CENTER - | | | | | | LABORATORY | | + +-------+ + + + | MCV | 91.4 | 83.0 - 101.0 fL | [facility] [...] +-------+ + + + | MCHC | 33.5 | 32.0 - 36.0 | [facility] | | | | | g/dL | [facility] | | | | | | MEDICAL | | | | | | CENTER - | | | | | | LABORATORY | | + +-------+ + + + | RDW-CV | 12.2 | <15.0 % | [facility] | | | | | | [facility] | | | | | | [facility]ICAL | | | | | | CENTER - | | | | | | LABORATORY | | + +-------+ + + + | RDW-SD | 40.7 | 35.1 - 46.3 fL | [facility] | | | | | | [facility] | | | | | | MEDICAL | | | | | | CENTER - | | | | | | LABORATORY | | + +-------+ + + + | Platelet | 200 | 140 - 440 K/uL | [facility] | | | Count | | | [facility] | | | | | | MEDICAL | | | | | | CENTER - | | | | | | LABORATORY | | + +-------+ + + + | MPV | 11.0 | 6.5 - 12.4 fL | [facility] | | | | | | [facility] | | | | | | [facility]ICAL | | | | | | CENTER - | | | | | | LABORATORY | | + +-------+ + + + | % nRBC | 0 | 0 - 2 per 100 | [facility] | | | | | WBC's | [facility] | | | | [...] ST. | [address] | [place], [place] | [phone] | | [facility] | | [address] | | | - LABORATORY | | | | + + + + + Troponin I (11/16/2018 12:44 AM PDT) + + + + + + | Component | Value | Ref Range | Performed | Pathologist | | | | | At | Signature | + + + + + + | Troponin I | 0.06 (H) | <0.06 ng/mL | [facility] | | | | | [...] [address] | [place] | [phone] | | [facility] | | [address] | | | - LABORATORY | | | | + + + + + Heparin XA (11/15/2018 7:58 PM PDT) + +-------+ + + + | Component | Value | Ref Range | Performed | Pathologist | | | | | At | Signature | + +-------+ + + + | Heparin, | 0.23 | IU/mL | [facility] | | | Unfractiona | | | [facility] | | | [facility] | | | MEDICAL | | | | | | CENTER - | | | | | | LABORATORY | | + +-------+ + + + + + | Specimen | + + | Blood | + + + + + | Narrative | Performed At | + + + | Unfractionated Heparin (UFH) Therapeutic range: 0.30 - 0.70 IU/mL | [facility] | | | [facility] | | | [facility] | | | - LABORATORY | + + + + + + + + | Performing | Address | City/State/Zipcode | Phone Number | | Organization | | | | + + + + + | [facility] | [address] | [place] | [phone] | | [facility] | | [address] | | | - LABORATORY | | | | + + + + + Troponin I (11/15/2018 5:53 PM PDT) + + + + + + | Component | Value | Ref Range | Performed | Pathologist | | | | | At | Signature | + + + + + + | Troponin I | 0.07 (H) | <0.06 ng/mL | [facility] | | | | | [...] [address] | [place] | [phone] | | [facility] | | [address] | | | - LABORATORY | | | | + + + + + ECHO Complete w Contrast (11/15/2018 4:08 PM PDT) + +---------+ + + + | Component | Value | Ref Range | Performed | Pathologist | | | | | At | Signature | + +---------+ + + + | BASELINE | 165/107 | mmHg | [facility] | | | BLOOD | | | | | | PRESSURE | | | | | + +---------+ + + + | Patient | 189 | | [facility] | | | Weight | | | | | | (lbs) | | | | | + +---------+ + + + | Patient | 6'0" | | [facility] | | | Height | | | | | + +---------+ + + + | LVIDd | 5.89 | cm | [facility] | | + +---------+ + + + | FS | 27 | % | [facility] | | + +---------+ + + + | LA volume | 84.33 | mL | [facility] | | + +---------+ + + + | Aortic arch | 2.91 | cm | [facility] | | + +---------+ + + + | AV mean | 3.48 | mmHg | [facility] | | | gradient | | | | | + +---------+ + + + | IVRT | 100.35 | msec | [facility] | | + +---------+ + + + | LVOT peak | 86.84 | cm/s | [facility] | | | erica | | | | | + +---------+ + + + | LVOT peak | 14.31 | cm | [facility] | | | VTI | | | | | + +---------+ + + + | AV peak erica | 122.25 | cm/s | [facility] | | + +---------+ + + + | AV VTI | 19.9 | cm | [facility] | | + +---------+ + + + | AV peak | 5.98 | mmHg | [facility] | | | gradient | | | | | + +---------+ + + + | LA Volume | 41 | mL/m2 | [facility] | | | Index | | | | | + +---------+ + + + | AV LVOT | 3.02 | mmHg | [facility] | | | Peak | | | | | | Gradient | | | | | + +---------+ + + + | AV LVOT | 1.49 | mmHg | [facility] | | | Mean | | | | | | Gradient | | | | | + +---------+ + + + | LV | 9.14 | cm | [facility] | | | Diastolic | | | | | | Length 4C | | | | | + +---------+ + + + | LV | 70 | % | [facility] | | | Jones's | | | | | | Biplane EF | | | | | + +---------+ + + + | LV ED | 69.7 | ml | [facility] | | | Volume | | | | | | (Jones's) | | | | | + +---------+ + + + | LV ED | 34 | ml/m2 | [facility] | | | Volume | | | | | | Index | | | | | + +---------+ + + + | LV ES | 20.59 | ml | [facility] | | | Volume | | | | | + +---------+ + + + | LVOT Mean | 56.64 | cm/s | [facility] | | | Velocity | | | | | + +---------+ + + + | MV E' | 6 | cm/s | [facility] | | | Septal | | | | | | Velocity | | | | | + +---------+ + + + | AV Mean | 89.88 | cm/s | [facility] | | | Velocity | | | | | + +---------+ + + + | LA/Aorta | 0.92 | | [facility] | | | Ratio | | | | | + +---------+ + + + | LA Major | 0.199 | cm | [facility] | | + +---------+ + + + | LV ES | 10 | ml/m2 | [facility] | | | Volume | | | | | | Index | | | | | + +---------+ + + + | Aortic Root | 4.58 | cm | [facility] | | | Diameter | | | | | + +---------+ + + + | IVS | 0.96 | cm | [facility] | | | Diastolic | | | | | | Thickness | | | | | | MM | | | | | + +---------+ + + + | LVPW | 0.96 | cm | [facility] | | | Diastolic | | | | | | Thickness | | | | | | MM | | | | | + +---------+ + + + | IVS | 1.13 | cm | [facility] | | | Systolic | | | | | | Thickness | | | | | | MM | | | | | + +---------+ + + + | LV Systolic | 4.29 | cm | [facility] | | | Diameter | | | | | | MM | | | | | + +---------+ + + + | LVPW | 1.08 | cm | [facility] | | | Systolic | | | | | | Thickness | | | | | | MM | | | | | + +---------+ + + + | AV Cusp | 2.67 | cm | [facility] | | | Seperation | | | | | | MM | | | | | + +---------+ + + + | LA Systolic | 4.2 | cm | [facility] | | | Diameter | | | | | | MM | | | | | + +---------+ + + + | TAPSE | 2.3 | cm | [facility] | | + +---------+ + + + | LVEF-TTE | 0 | % | [facility] | | | TRANSTHORAC | | | | | | IC ECHO | | | | | + +---------+ + + + + + | Specimen | + + | | + + + + + | Narrative | Performed At | + + + | 1. Mild | [facility] | | dilatation left ventricle with mild decrease in overall contractility | | | on the parasternal long axis view.2. On parasternal long axis view | | | mild inferior hypokinesis.3. Ejection fraction calculated at 70% and | | | visually around 50%4. Normal aortic valve5. Normal left atrium | | | mitral valve6. Normal right heart valves and chambers7. Small | | | anterior pericardial effusion.8. Likely limited study. There | | | appears to be some mild wall motion abnormalities on some views.9. | | | No significant valvular heart disease | | |abnormalities on some views. | | |9. No significant valvular heart disease | | + + + + +---------+ + + | Performing | Address | City/State/Zipcode | Phone Number | | Organization | | | | + +---------+ + + | [facility] | | | | + +---------+ + + ECG 12 lead (11/15/2018 2:20 PM PDT) + + + + + + | Component | Value | Ref Range | Performed | Pathologist | | | | | At | Signature | + + + + + + | VENTRICULAR | 79 | BPM | [facility] | | | RATE EKG | | | | | + + + + + + | ATRIAL RATE | 79 | BPM | [facility] | | + + + + + + | P-R | 130 | ms | [facility] | | | INTERVAL | | | | | + + + + + + | QRS | 82 | ms | [facility] | | | DURATION | | | | | + + + + + + | Q-T | 380 | ms | [facility] | | | INTERVAL | | | | | + + + + + + | Q-T | 435 | ms | [facility] | | | INTERVAL | | | | | | (CORRECTED) | | | | | + + + + + + | P WAVE AXIS | 66 | degrees | [facility] | | + + + + + + | QRS AXIS | -20 | degrees | [facility] | | + + + + + + | T AXIS | 79 | degrees | [facility] | | + + + + + + | INTERPRETAT | Normal sinus rhythm with | | [facility] | | | ION TEXT | sinus | | | | | | arrhythmiaPossible Left | | | | | | atrial | | | | | | enlargementBorderline | | | | | | ECGWhen compared with | | | | | | ECG of 15-NOV-2018 | | | | | | 11:18, | | | | | | (Unconfirmed)Vent. rate | | | | | | has decreased BY 42 | | | | | | BPMST elevation in lead | | | | | | aVR, V1-[address] | | | | | | depression has | | | | | | improved.Confirmed by | | | | | | NINFA TORRES MD ([id number]) | | | | | | on 11/15/2018 5:54:47 PM | | | | + + + [...] | | | + +---------+ + + Culture, MRSA (11/15/2018 1:21 PM PDT) + + + + + + | Component | Value | Ref Range | Performed | Pathologist | | | | | At | Signature | + + + + + + | Culture | Negative for MRSA by | | [facility] | | | | chromogenic agar method | | [facility] | | | [...] [address] | [place] | [phone] | | [facility] | | [address] | | | - LABORATORY | | | | + + + + + Troponin I (11/15/2018 11:43 AM PDT) + +-------+ + + + | Component | Value | Ref Range | Performed | Pathologist | | | | | At | Signature | + +-------+ + + + | Troponin I | 0.03 | <0.06 ng/mL | [facility] | | | | | [...] [address] | [place] | [phone] | | [facility] | | [address] | | | - LABORATORY | | | | + + + + + PTT (11/15/2018 11:43 AM PDT) + +-------+ + + + | Component | Value | Ref Range | Performed | Pathologist | | | | | At | Signature | + +-------+ + + + | aPTT | 32 | 22 - 36 seconds | [facility] | | | | | [...] [address] | [place] | [phone] | | [facility] | | [address] | | | - LABORATORY | | | | + + + + + Ethanol (11/15/2018 11:43 AM PDT) + +-------+ + + [...] ST. | [address] | [place] | [phone] | | [facility] | | [address] | | | - LABORATORY | | | | + + + + + XR Chest AP Portable (11/15/2018 11:40 AM PDT) + + | Specimen | + + | | + + + + + | Narrative | Performed At | + + + | EXAM: XR CHEST AP PORTABLE dated 11/15/2018 11:40 AM HISTORY: | [facility] | | CHEST PAIN Comparison: 06/23/2017. TECHNIQUE: A single | | | portable view of the chest. FINDINGS: The lungs are | | | symmetrically aerated. Lung volumes are low. They are clear. | | | There are no large pleural effusions. There is no pneumothorax. | | | The cardiac and mediastinal contours are not enlarged. No acute | | | osseous abnormalities. Healed fracture deformity in the left | | | clavicle. IMPRESSION - No radiographic evidence for acute | | | disease in the chest. Dictated and Signed by: Oskar Gutierrez MD | | | Electronically signed: 11/15/2018 12:24 PM | | + + + + + | Procedure Note | + + | [facility], Rad Results In - 11/15/2018 12:27 PM PDT EXAM: XR CHEST AP PORTABLE dated | | 11/15/2018 11:40 AMHISTORY: CHEST PAINComparison: 06/23/2017.TECHNIQUE: A single portable | | view of the chest.FINDINGS:The lungs are symmetrically aerated. Lung volumes are low. | | They are clear. There are no large pleural effusions. There is no pneumothorax. The | | cardiacand mediastinal contours are not enlarged. No acute osseous abnormalities. | | Healed fracture deformity in the left clavicle.IMPRESSION -No radiographic evidence for | | acute disease in the chest.Dictated and Signed by: Oskar Gutierrez MD Electronically | | signed: 11/15/2018 12:24 PM | |FINDINGS: | | | |The lungs are symmetrically aerated. Lung volumes are low. They are clear. | |There are no large pleural effusions. There is no pneumothorax. The cardiac | |and mediastinal contours are not enlarged. No acute osseous abnormalities. | |Healed fracture deformity in the left clavicle. | | | |IMPRESSION - | | | |No radiographic evidence for acute disease in the chest. | | | |Dictated and Signed by: Oskar Gutierrez MD | | Electronically signed: 11/15/2018 12:24 PM | + + + +---------+ + + | Performing | Address | City/State/Zipcode | Phone Number | | Organization | | | | + +---------+ + + | [facility] | | | | + +---------+ + + ECG 12 lead (11/15/2018 11:18 AM PDT) + + + + + + | Component | Value | Ref Range | Performed | Pathologist | | | | | At | Signature | + + + + + + | VENTRICULAR | 121 | BPM | [facility] | | | RATE EKG | | | | | + + + + + + | ATRIAL RATE | 121 | BPM | [facility] | | + + + + + + | P-R | 126 | ms | [facility] | | | INTERVAL | | | | | + + + + + + | QRS | 78 | ms | [facility] | | | DURATION | | | | | + + + + + + | Q-T | 356 | ms | [facility] | | | INTERVAL | | | | | + + + + + + | Q-T | 505 | ms | [facility] | | | INTERVAL | | | | | | (CORRECTED) | | | | | + + + + + + | P WAVE AXIS | 72 | degrees | [facility] | | + + + + + + | QRS AXIS | -30 | degrees | [facility] | | + + + + + + | T AXIS | 81 | degrees | [facility] | | + + + + + + | INTERPRETAT | Sinus | | [facility] | | | ION TEXT | tachycardiaPossible Left | | | | | | atrial enlargementLeft | | | | | | axis deviationST | | | | | | elevation in leads aVR, | | | | | | aVL, V1-[address] | | | | | | depression in remaining | | | | | | leads : Strongly | | | | | | consider | | | | | | ischemia/ACS/infarctionP | | | | | | attern suggesting of | | | | | | LMCA diseaseAbnormal | | | | | | ECGWhen compared with | | | | | | ECG of 15-NOV-2018 | | | | | | 10:56, (Unconfirmed)No | | | | | | significant change was | | | | | | foundConfirmed by | | | | | | NINFA TORRES MD ([id number]) | | | | | | on 11/15/2018 5:54:07 PM | | | | + + + [...] | | | + +---------+ + + Lipid Panel (11/15/2018 11:05 AM PDT) + +-------+ + + + | Component | Value | Ref Range | Performed | Pathologist | | | | | At | Signature | + +-------+ + + + | Triglycerid | 89 | <=150 mg/dL | [facility] | | | es | | | [facility] | | | | | | [facility] | | | | | | [facility]ENTER - | | | | | | LABORATORY | | + +-------+ + + + | Cholesterol | 159 | <=200 mg/dL | [facility] | | | | | | [facility] | | | | | | MED[facility] | | | | | | CENTER - | | | | | | LABORATORY | | + +-------+ + + + | HDL | 52 | 40 - 60 mg/dL | [facility] | | | | | | [facility] | | | | | | MEDICAL | | | | | | CENTER - | | | | | | LABORATORY | | + +-------+ + + + | Chol/HDL | 3.1 | | [facility] | | | Ratio | | | [facility] | | | | | | [facility] | | | | | | CENTER - | | | | | | LABORATORY | | + +-------+ + + + | LDL, | 89 | <=130 mg/dL | [facility] | | | Calculated | | | [facility] | | [...] [address] | [place] | [phone] | | [facility] | | [address] | | | - LABORATORY | | | | + + + + + Extra Blue Top Tube (11/15/2018 11:05 AM PDT) + +-------+ + + + | Component | Value | Ref Range | Performed | Pathologist | | | | | At | Signature | + +-------+ + + + | Extra Blue | Done | | [facility] | | | Top Tube | | | [facility] | | [...] + | [facility] | [address] | [place] | [phone] | | [facility] | | [address] | | | - LABORATORY | | | | + + + + + B Type Natriuretic Peptide (11/15/2018 11:05 AM PDT) + +-------+ + + + | Component | Value | Ref Range | Performed | Pathologist | | | | | At | Signature | + +-------+ + + + | BNP | 60 | <100 pg/mL | [facility] | | | | | [...] [address] | [place] | [phone] | | [facility] | | [address] | | | - LABORATORY | | | | + + + + + Troponin I (11/15/2018 11:05 AM PDT) + +-------+ + + + | Component | Value | Ref Range | Performed | Pathologist | | | | | At | Signature | + +-------+ + + + | Troponin I | 0.03 | <0.06 ng/mL | [facility] | | | | | [...] + | [facility] | [address] | [place] | [phone] | | [facility] | | [address] | | | - LABORATORY | | | | + + + + + Comprehensive Metabolic Panel (11/15/2018 11:05 AM PDT) + +---------+ + + + | Component | Value | Ref Range | Performed | Pathologist | | | | | At | Signature | + +---------+ + + + | Na | 136 | 136 - 145 | [facility] | | | | | mmol/L | [facility] | | | | | | MEDICAL | | | | | | CENTER - | | | | | | LABORATORY | | + +---------+ + + + | K | 4.0 | 3.4 - 5.1 | [facility] | | | | | mmol/L | [facility] | | | | | | [facility] | | | | | | CENTER - | | | | | | LABORATORY | | + +---------+ + + + | Cl | 100 | 98 - 107 mmol/L | [facility] | | | | | | [facility] | | | | | | [facility] | | | | | | CENTER - | | | | | | LABORATORY | | + +---------+ + + + | CO2 | 24 | 20 - 31 mmol/L | [facility] | | | | | | [facility] | | | | | | [facility] | | | | | | CENTER - | | | | | | LABORATORY | | + +---------+ + + + | Anion Gap | 12 | 3 - 16 mmol/L | [facility] | | | | | | [facility] | | | | | | [facility] | | | | | | CENTER - | | | | | | LABORATORY | | + +---------+ + + + | Glucose | 117 (H) | 60 - 106 mg/dL | [facility] | | | | | | [facility] | | | | | | [facility] | | | | | | CENTER - | | | | | | LABORATORY | | + +---------+ + + + | BUN | 11 | 9 - 23 mg/dL | [facility] | | | | | | [facility] | | | | | | [facility] | | | | | | CENTER - | | | | | | LABORATORY | | + +---------+ + + + | Creatinine | 1.20 | 0.70 - 1.30 | [facility] | | | | | mg/dL | [facility] | | | | | [facility] | | | | | | [facility] - | | | | | | LABORATORY | | + +---------+ + + + | eGFR if not | >60 | >=60 | [facility] | | | | | mL/min/1.73m2 | [facility] | | | [facility] | | | [facility] | | | | | | [facility] - | | | | | | LABORATORY | | + +---------+ + + + | Calcium | 10.1 | 8.7 - 10.4 | [facility] | | | | | mg/dL | [facility] | | | | | | [facility] | | | | | | [facility] - | | | | | | LABORATORY | | + +---------+ + + + | Albumin | 4.6 | 3.2 - 4.8 g/dL | [facility] | | | | | | [facility] | | | | | | [facility] | | | | | | C[facility] - | | | | | | LABORATORY | | + +---------+ + + + | Bilirubin | 0.6 | 0.3 - 1.2 mg/dL | [facility] | | | Total | | | [facility] | | | | | | [facility] | | | | | | CENTER - | | | | | | LABORATORY | | + +---------+ + + + | Total | 7.5 | 5.7 - 8.2 g/dL | [facility] | | | Protein | | | [facility] | | | | | | [facility] | | | | | | CENTER - | | | | | | LABORATORY | | + +---------+ + + + | AST | 26 | 0 - 34 U/L | [facility] | | | | | | [facility] | | | | | | [facility] | | | | | [facility] - | | | | | | LAB[facility]ATORY | | + +---------+ + + + | ALT | 21 | 10 - 49 U/L | [facility] | | | | | | [facility] | | | [facility] | | [facility] | | | | | [facility] - | | | | | | LAB[facility]ATORY | | + +---------+ + + + | Alkaline | 120 (H) | 46 - 116 U/L | [facility] | | | Phosphatase | | | [facility] | | | | | | [facility] | | | | | | [facility] - | | | | | | LAB[facility]ATORY | | + +---------+ + + + | Globulin | 2.9 | 2.1 - 3.8 g/dL | [facility] | | | | | | [facility] | | | | | | [facility] | | | | | [facility] - | | | | | | [facility]ATORY | | + +---------+ + + + | Albumin/Clara | 1.6 | 0.8 - 1.9 | [facility] | | | bulin Ratio | | | [facility] | | | | | | [facility] | | | | | | [facility] - | | | | | | LAB[facility]ATORY | | + +---------+ + + + | BUN/Creatin | 9.2 | | [facility] | | | ine [...] [address] | [place] | [phone] | | [facility] | | [id number] | | | - LABORATORY | | | | + + + + + CBC with Differential (11/15/2018 11:05 AM PDT) + + + + + + | Component | Value | Ref Range | Performed | Pathologist | | | | | At | Signature | + + + + + + | WBC | 14.0 (H) | 4.0 - 11.0 K/uL | [facility] | | | | | | [facility] | | | | | | [facility] | | | | [facility] - | | | | | | [facility]ATORY | | + + + + + + | RBC | 6.13 (H) | 4.30 - 5.70 | [facility] | | | | | M/uL | [facility] | | | | | | [facility] | | | | | | [facility] - | | | | | | LAB[facility]ATORY | | + + + + + + | Hemoglobin | 18.5 (H) | 13.5 - 18.0 | [facility] | | | | | g/dL | [facility] | | | | | | [facility] | | | | | | [facility] - | | | | | | LAB[facility]ATORY | | + + + + + + | Hematocrit | 55.8 (H) | 40.0 - 51.0 % | [facility] [...] + + + + | MCH | 30.2 | 28.0 - 35.0 pg | [facility] | | | | | | [facility] | | | | | | [facility] | | | | | | [facility] - | | | | | | [facility]ATORY | | + + + + + + | MCHC | 33.2 | 32.0 - 36.0 | [facility] | [...] + + + + | RDW-SD | 40.1 | 35.1 - 46.3 fL | [facility] | | | | | | [facility] | | | | | | [facility] | | | | | | [facility] - | | | | | | [facility]ATORY | | + + + + + + | Platelet | 219 | 140 - 440 K/uL | [facility] [...] + + + + | % | 83.1 (H) | 45.0 - 82.0 % | [facility] | | | Neutrophils | | | [facility] | | | | | | [facility] | | | | | | [facility] - | | | | | | LAB[facility]ATORY | | + + + + + + | % | 10.0 (L) | 20.0 - 45.0 % | [facility] | | | Lymphocytes | | | [facility] | | | | | | [facility] | | | | | | [facility] - | | | | | | LAB[facility]ATORY | | + + + + + + | % Monocytes | 5.7 | 4.0 - 12.0 % | [facility] [...] + + + + | Absolute | 11.59 (H) | 1.80 - 8.50 | [facility] | | | Neutrophils | | [facility] | [facility] | | | [facility] | | | | | | [facility] - | | | | | | LABORATORY | | + + + + + + | Absolute | 1.39 | 0.60 - 3.20 | [facility] | [...] + + + + | Absolute | 0.09 | 0.00 - 0.40 | [facility] | [...] + + + + | Absolute | 0.06 (H) | 0.00 - 0.03 | [facility] [...] | [facility] | | | | | WBC's | [facility] | | | | [...] [address] | [place] | [phone] | | [facility] | | [address] | | | - LABORATORY | | | | + + + + + ECG 12 lead (11/15/2018 10:56 AM PDT) + + + + + + | Component | Value | Ref Range | Performed | Pathologist | | | | | At | Signature | + + + + + + | VENTRICULAR | 114 | BPM | [facility] | | | RATE EKG | | | | | + + + + + + | ATRIAL RATE | 114 | BPM | [facility] | | [...] + + + + | Q-T | 364 | ms | [facility] | | | INTERVAL | | | | | + + + + + + | Q-T | 501 | ms | [facility] | | | INTERVAL | | | | | | (CORRECTED) | | | | | + + + + + + | P WAVE AXIS | 66 | degrees | [facility] | | + + + + + + | QRS AXIS | -33 | degrees | [facility] | | + + + + + + | T AXIS | 82 | degrees | [facility] | | + + + + + + | INTERPRETAT | Sinus | | [facility] | | | ION TEXT | tachycardiaPossible Left | | | | | | atrial enlargementLeft | | | | | | axis deviationST | | | | | | elevation in leads aVR, | | | | | | V1 and V2 with diffuse | | | | | | ST depression:consider | | | | | | ischemia/ACS/ | | | | | | infarctionAbnormal | | | | | | ECGWhen compared with | | | | | | ECG of 23-JUN-2017 | | | | | | 18:19,Significant | | | | | | changes have | | | | | | occurredConfirmed by | | | | | | NINFA TORRES MD ([id number]) | | | | | | on 11/15/2018 5:52:06 PM | | | | + + + [...] + | Diagnosis | + + | NSTEMI (non-ST elevated myocardial infarction) (HCC) - Primary Acute myocardial | | infarction, subendocardial infarction, episode of care unspecified | + + | Unstable angina (HCC) Intermediate coronary syndrome | + + | ACS (acute coronary syndrome) (HCC) Intermediate coronary syndrome | + + | Essential hypertension with goal blood pressure less than 130/80 | + + documented in this encounter Administered Medications + +--------+ +--------+------+------+ | Medication Order | MAR | Action | Dose | Rate | Site | | | Action | Date | | | | + +--------+ +--------+------+------+ | acetaminophen (TYLENOL) tablet | Given | 11/19/19 | 650 mg | | | | 650 mg 650 mg, Oral, EVERY 4 | | 19 9:31 | | | | | HOURS PRN, Pain, or fever >= 38.6 | | AM PDT | | | | | C (101.5 F), Starting Mon | | | | | | | 11/15/18 at 1142 | | | | | | + +--------+ +--------+------+------+ +-------+ +--------+---+---+ | Given | 11/17/19 | 650 mg | | | | | 19 5:36 | | | | | | AM PDT | | | | +-------+ +--------+---+---+ | Given | 11/16/19 | 650 mg | | | | | 19 9:34 | | | | | | PM PDT | | | | +-------+ +--------+---+---+ +---+---+ | | | +---+---+ + +-------+ +-------+---+---+ | aminophylline injection 75 mg | Given | 11/18/19 | 75 mg | | | | 75 mg, Intravenous, ONCE PRN, per | | 19 8:27 | | | | | doctor, Starting 11/17/18 at | | AM PDT | | | | | 0825, For 1 dose, Nuclear | | | | | | | Medicine | | | | | | + +-------+ +-------+---+---+ +---+---+ | | | +---+---+ + +-------+ +-------+---+---+ | aspirin chewable tablet 81 mg | Given | 11/19/19 | 81 mg | | | | 81 mg, Oral, DAILY, First dose on | | 19 9:11 | | | | | 11/16/18 at 0900 | | AM PDT | | | | + +-------+ +-------+---+---+ +-------+ +-------+---+---+ | Given | 11/18/19 | 81 mg | | | | | 19 10:32 | | | | | | AM PDT | | | | +-------+ +-------+---+---+ | Given | 11/17/19 | 81 mg | | | | | 19 9:11 | | | | | | AM PDT | | | | +-------+ +-------+---+---+ +---+---+ | | | +---+---+ + +-------+ +-------+---+---+ | atenolol (TENORMIN) tablet 50 | Given | 11/19/19 | 50 mg | | | | mg 50 mg, Oral, DAILY, First | | 19 9:12 | | | | | dose on Thu11/16/18 at 0900 | | AM PDT | | | | + +-------+ +-------+---+---+ +-------+ +-------+---+---+ | Given | 11/18/19 | 50 mg | | | | | 19 10:31 | | | | | | AM PDT | | | | +-------+ +-------+---+---+ | Given | 11/17/19 | 50 mg | | | | | 19 9:11 | | | | | | AM PDT | | | | +-------+ +-------+---+---+ +---+---+ | | | +---+---+ + +-------+ + +--------+---+ | dipyridamole (PERSANTINE) 60mg | Given | 11/18/19 | 12.6948 | 507.8 | | | in 40 mL NS syringe 0.142 | | 19 8:45 | mg/min | mL/hr | | | mg/kg/min | | AM PDT | | | | | 89.4 kg (507.792 mL/hr, rounded | | | | | | | to 507.8 mL/hr), Intravenous, | | | | | | | Administer over 4 Minutes, ONCE, | | | | | | | 11/17/18 at 0845, For 1 dose, | | | | | | | Nuclear Medicine | | | | | | + +-------+ + +--------+---+ +---+---+ | | | +---+---+ + +-------+ +-------+---+ + | enoxaparin (LOVENOX) 80 mg/0.8 | Given | 11/17/19 | 80 mg | | Abdomen- | | mL injection 80 mg 80 mg | | 19 8:39 | | | LLQ | | (rounded from 85.9 mg = 1 mg/kg | | PM PDT | | | | | | | | | | | | 85.9 kg), Subcutaneous, EVERY 12 | | | | | | | HOURS (2 times per day), First | | | | | | | dose on Thu11/16/18 at 1300 | | | | | | + +-------+ +-------+---+ + +-------+ +-------+---+ + | Given | 11/17/19 | 80 mg | | Abdomen- | | | 19 2:19 | | | LUQ | | | PM PDT | | | | +-------+ +-------+---+ + +---+---+ | | | +---+---+ + +-------+ +--------+---+---+ | heparin 1,000 units/mL | Given | 11/16/19 | 5,200 | | | | injection 5,200 Units 5,200 | | 19 11:54 | Units | | | | Units (rounded from 5,172 Units = | | AM PDT | | | | | 60 Units/kg | | | | | | | 86.2 kg), Intravenous, ONCE, Mon | | | | | | | 11/15/18 at 1140, For 1 dose, | | | | | | | Pharmacy heparin protocol, | | | | | | + +-------+ +--------+---+---+ +---+---+ | | | +---+---+ + + + + + +---+ | heparin in half-normal saline | Rate/Dos | 11/17/19 | 1,200 | 24 mL/hr | | | 50 units/mL infusion 1,200 | e Change | 19 5:31 | Units/hr | | | | Units/hr (24 mL/hr), at 24 mL/hr, | | AM PDT | | | | | Intravenous, CONTINUOUS, | | | | | | | Starting 11/15/18 at 1140, | | | | | | | Pharmacy heparin protocol; goal | | | | | | | Xa 0.2-0.4, | | | | | | + + + + + +---+ + + + + +---+ | Rate/Dose Verify | 11/16/19 | 1,050 | 21 mL/hr | | | | 19 1:15 | Units/hr | | | | | PM PDT | | | | + + + + +---+ | New Bag | 11/16/19 | 1,050 | 21 mL/hr | | | | 19 12:26 | Units/hr | | | | | PM PDT | | | | + + + + +---+ +---+---+ | | | +---+---+ + +-------+ +---------+---+---+ | hydroCHLOROthiazide tablet 12.5 | Given | 11/19/19 | 12.5 mg | | | | mg 12.5 mg, Oral, DAILY, First | | 19 9:12 | | | | | dose on Tu11/16/18 at 0900 | | AM PDT | | | | + +-------+ +---------+---+---+ +-------+ +---------+---+---+ | Given | 11/18/19 | 12.5 mg | | | | | 19 10:28 | | | | | | AM PDT | | | | +-------+ +---------+---+---+ | Given | 11/17/19 | 12.5 mg | | | | | 19 9:11 | | | | | | AM PDT | | | | +-------+ +---------+---+---+ +---+---+ | | | +---+---+ + +-------+ +-------+---+---+ | isosorbide mononitrate (IMDUR) | Given | 11/19/19 | 30 mg | | | | ER tablet 30 mg 30 mg, Oral, | | 19 9:11 | | | | | DAILY, First dose on Thu11/16/18 | | AM PDT | | | | | at 1300, Tablet may be cut where | | | | | | | scored but do not crush., | | | | | | + +-------+ +-------+---+---+ +-------+ +-------+---+---+ | Given | 11/18/19 | 30 mg | | | | | 19 10:31 | | | | | | AM PDT | | | | +-------+ +-------+---+---+ | Given | 11/17/19 | 30 mg | | | | | 19 2:19 | | | | | | PM PDT | | | | +-------+ +-------+---+---+ +---+---+ | | | +---+---+ + +-------+ +-------+---+---+ | lisinopril (PRINIVIL, ZESTRIL) | Given | 11/19/19 | 10 mg | | | | tablet 10 mg 10 mg, Oral, DAILY, | | 19 9:12 | | | | | First dose on e 11/16/18 at | | AM PDT | | | | | 0900 | | | | | | + +-------+ +-------+---+---+ +-------+ +-------+---+---+ | Given | 11/18/19 | 10 mg | | | | | 19 10:31 | | | | | | AM PDT | | | | +-------+ +-------+---+---+ | Given | 11/17/19 | 10 mg | | | | | 19 9:11 | | | | | | AM PDT | | | | +-------+ +-------+---+---+ +---+---+ | | | +---+---+ + +-------+ +--------+---+---+ | metoprolol tartrate (LOPRESSOR) | Given | 11/16/19 | 2.5 mg | | | | injection 2.5 mg 2.5 mg, | | 19 11:15 | | | | | Intravenous, ONCE, 11/15/18 at | | AM PDT | | | | | 1115, For 1 dose | | | | | | + +-------+ +--------+---+---+ +---+---+ | | | +---+---+ + +-------+ +--------+---+---+ | metoprolol tartrate (LOPRESSOR) | Given | 11/16/19 | 2.5 mg | | | | injection 2.5 mg 2.5 mg, | | 19 11:36 | | | | | Intravenous, ONCE, Thu11/15/18 at | | AM PDT | | | | | 1135, For 1 dose | | | | | | + +-------+ +--------+---+---+ +---+---+ | | | +---+---+ + +-------+ +--------+---+---+ | metoprolol tartrate (LOPRESSOR) | Given | 11/19/19 | 2.5 mg | | | | injection 2.5 mg 2.5 mg, | | 19 9:19 | | | | | Intravenous, EVERY 6 HOURS PRN, | | AM PDT | | | | | sbp > 160 hold for HR <60, | | | | | | | Starting Thu11/15/18 at 1144 | | | | | | + +-------+ +--------+---+---+ +-------+ +--------+---+---+ | Given | 11/18/19 | 2.5 mg | | | | | 19 10:32 | | | | | | AM PDT | | | | +-------+ +--------+---+---+ +---+---+ | | | +---+---+ + +-------+ +--------+---+---+ | nitroglycerin (NITROSTAT) SL | Given | 11/16/19 | 0.4 mg | | | | tablet 0.4 mg 0.4 mg, | | 19 11:22 | | | | | Sublingual, ONCE, 11/15/18 at | | AM PDT | | | | | 1115, For 1 dose, Maximum of 3 | | | | | | | doses in 15 minutes., | | | | | | + +-------+ +--------+---+---+ +-------+ +--------+---+---+ | Given | 11/16/19 | 0.4 mg | | | | | 19 11:11 | | | | | | AM PDT | | | | +-------+ +--------+---+---+ +---+---+ | | | +---+---+ + + + +---------+ +---+ | nitroglycerin in dextrose 100 | Rate/Dos | 11/17/19 | 20 | 12 mL/hr | | | mcg/mL infusion 5-250 mcg/min | e Change | 19 11:22 | mcg/min | | | | (3-150 mL/hr), at 3-150 mL/hr, | | AM PDT | | | | | Intravenous, TITRATED, Starting | | | | | | | 11/15/18 at 1150, Titration | | | | | | | Instruction: See below, Goal: SBP | | | | | | | less than 160, Initial dose: 5 | | | | | | | mcg/min, Increase rate by: 5 | | | | | | | mcg/min every 5 minutes until 20 | | | | | | | mcg/min achieved, then increase | | | | | | | by 10 mcg/min every 5 minutes., | | | | | | | Decrease rate by: 10 mcg/min | | | | | | | every 5 minutes., *: Titrate drug | | | | | | | per order as tolerated. | | | | | | | Titration may vary based on the | | | | | | | patient | | | | | | | | | | | | | | s critical condition. | | | | | | + + + +---------+ +---+ + + +---------+ +---+ | Rate/Dose Change | 11/17/19 | 30 | 18 mL/hr | | | | 19 8:06 | mcg/min | | | | | AM PDT | | | | + + +---------+ +---+ | Rate/Dose Change | 11/17/19 | 20 | 12 mL/hr | | | | 19 5:15 | mcg/min | | | | | AM PDT | | | | + + +---------+ +---+ + +---+ | | | + +---+ | ondansetron (ZOFRAN ODT) | | | disintegrating tablet 4 mg 4 mg, | | | Oral, EVERY 6 HOURS PRN, Nausea, | | | Vomiting, Starting 11/15/18 | | | at 1141, First line agent, | | + +---+ | | | + +---+ + +-------+ +-------+---+---+ | perflutren lipid microspheres | Given | 11/16/19 | 2 mLs | | | | (DEFINITY) injection 2 mL 2 mL, | | 19 4:08 | | | | | Intravenous, ONCE PRN, Other, | | PM PDT | | | | | Starting [facility] 11/15/18 at 1531, For | | | | | | | 1 dose, Echo | | | | | | + +-------+ +-------+---+---+ +---+---+ | | | +---+---+ + +---------+ +--------+-------+---+ | sodium chloride 0.9% (NS) bolus | New Bag | 11/16/19 | 1,000 | 2000 | | | 1,000 mL 1,000 mL, Intravenous, | | 19 11:22 | mLs | mL/hr | | | Administer over 30 Minutes, | | AM PDT | | | | | ONCE, [facility] 11/15/18 at 1100, For 1 | | | | | | | dose | | | | | | + +---------+ +--------+-------+---+ +---+---+ | | | +---+---+ + +---------+ +---+-------+---+ | sodium chloride 0.9% (NS) | New Bag | 11/17/19 | | 125 | | | infusion at 125 mL/hr, | | 19 1:35 | | mL/hr | | | Intravenous, CONTINUOUS, Starting | | PM PDT | | | | | 11/15/18 at 1145 | | | | | | + +---------+ +---+-------+---+ +---------+ +---+-------+---+ | New Bag | 11/17/19 | | 125 | | | | 19 4:42 | | mL/hr | | | | AM PDT | | | | +---------+ +---+-------+---+ | New Bag | 11/16/19 | | 125 | | | | 19 8:52 | | mL/hr | | | | PM PDT | | | | +---------+ +---+-------+---+ +---+---+ | | | +---+---+ + +-------+ + +---+---+ | technetium TC-99M sestamibi | Given | 11/18/19 | 10.7 | | | | (CARDIOLITE) injection 10.7 | | 19 8:26 | millicur | | | | millicurie 10.7 millicurie, | | AM PDT | ies | | | | Intravenous, ONCE PRN, Other, | | | | | | | Starting Thu11/17/18 at 0825, For | | | | | | | 1 dose, Nuclear Medicine | | | | | | + +-------+ + +---+---+ +---+---+ | | | +---+---+ + +-------+ + +---+---+ | technetium TC-99M sestamibi | Given | 11/18/19 | 35.4 | | | | (CARDIOLITE) injection 35.4 | | 19 12:26 | millicur | | | | millicurie 35.4 millicurie, | | PM PDT | ies | | | | Intravenous, ONCE PRN, Other, | | | | | | | Starting Thu11/17/18 at 1226, For | | | | | | | 1 dose, Nuclear Medicine | | | | | | + +-------+ + +---+---+ +---+---+ | | | +---+---+ documented in this encounter
--- OUTSIDE RECORDS SUMMARY | ~2019-08-11 | XMS | Encounter Summary ---
Demographics + + + | Address | NEED ADDRESS | | | [place] [address] | + + + | Home Phone | | + + + | Preferred Language | Unknown | + + + | Marital Status | Single | + + + | Mormon Affiliation | Unknown | + + + | Race | Unknown | + + + | Ethnic Group | Unknown | + + + Author + + + | Author | [facility] | | | and [place] | + + + | Organization | [facility] | | | [...] Team Providers + +------+ + | Care Home Care And Home Health Aides Teacher Name | Role | Phone | + [...] + + | 03/06/ | Emergency | [facility] | Gonzalez Boyce, | Elzbieta' keratitis, | | 2014 | | [facility] | [address] | unspecified | | | | CENTER [address] | [place], [place] | laterality (Primary | | | | [place], [place] | [address] | Dx) | | | | [address] | | | | | | [phone] | | | +--------+ + + + [...] be sent through Care Everywhere.FLASH BURN, EYE (UZBEK)documented in this encounter Medications at Time of [...]
--- OUTSIDE RECORDS SUMMARY | ~2019-08-11 | XMS | Encounter Summary ---
Demographics + + + | Address | NEED ADDRESS | | | [place] [address] | + + + | Home Phone | | + + + | Preferred Language | Unknown | + + + | Marital Status | Single | + + + | Mandaeism Affiliation | Unknown | + + + | Race | Unknown | + + + | Ethnic Group | Unknown | + + + Author + + + | Author | [facility] | | | and [place] | + + + | Organization | [facility] | | | [...] Team Providers + +------+ + | Care Industrial Relations Commissioner Name | Role | Phone | + [...] | | Tobacco | [address] | [address] | | | | | abuse | [place], | [place], | | | | | | [place] [address] | [place] [address] | | | | | | Phone: | Phone: | | | | | | [phone] | [phone] | | | | | | Fax: | Fax: | | | | | | [phone] | [phone] | +--------+ + + + + + Encounter Details +--------+---------+ + + + | Date | Type | Department | Care Team | Description | +--------+---------+ + + + | 04/07/ | Office | [facility] | Nell Carrera, | Chest pain, | | 2017 | Visit | CARDIOLOGY [address] | unspecified type | | | | [place], | [place], | (Primary Dx); | | | | [place] [address] | [place] [address] | Essential | | | | [phone] | [phone] | hypertension with | | | | [...] Due: 04/14/17 Where to go for labs: [facility]- [address] 5. [...] health until 03/03/2017 he was seen at [address] emerg[facility] department for chest pain seen [...] health until 03/03/2017 he was seen at [facility] department for chest pain seen by Vicente Bravo MD. initial workup including troponi n, BNP, CBC, metabolic and EKG were unremarkable. B. Today, patient denies any recurrent chest pain. He does report having shortness of radames th on exertion i.e. walking. There is no signs and symptoms of overt congestive heart failure. He is in a class II of [place] [employer] functional class. There is no [...] have reviewed and edited this note. Kaitlin Monrdagon [employer] Teacher 04/07/2017 I, Nell Carrera MD, personally performed the services described in this documentation, as scribed in my presence and it is both accurate and complete. Kaitlin Mondragon Med Ass t 04/07/2017 15:49 Electronically signed by: Nell Carrera MD [facility] 04/07/2017 Portions of this chart may have been created with [employer] voice recognition software. Occasi onal wrong-word or [...] NELL | | | | | | ([id number]) on 04/08/2017 | | | | | [...]
--- OUTSIDE RECORDS SUMMARY | ~2019-08-11 | XMS | Encounter Summary ---
Demographics + + + | Address | NEED ADDRESS | | | [place] [address] | + + + | Home Phone | | + + + | Preferred Language | Unknown | + + + | Marital Status | Single | + + + | Uatsdin Affiliation | Unknown | + + + | Race | Unknown | + + + | Ethnic Group | Unknown | + + + Author + + + | Author | [facility] | | | and [place] | + + + | Organization | [facility] | [...] Team Providers + +------+ + | Care Pick Up Name | Role | Phone | + [...] + + | 11/15/ | Hospital | [facility] | [place]and[place] | ACS (acute coronary | | 2019 - | Encounter | [facility] | León Fishman MD [address] | syndrome) (HCC) | | | | [address] [place] | [address] [place] | (Primary Dx); | | 11/18/ | | [place] [address] | [place] [address] | Unstable angina | | 2019 | | [phone] | [phone] | ([facility]); Essential | | | | | | hypertension with | | | | | Edy Das MD | goal blood pressure | | | | | [address] | less than 130/80; | | | | | [place], [place] | NSTEMI (non-ST | | | | | [id number] | elevated myocardial | | | | | | infarction) ([facility]) | | | | | Reji Gonzales [...] documented in this encounter Discharge Summaries Edy Das MD - 11/18/2018 8:34 AM PDT DISCHARGE SUMMARY PATIENT NAME/: Dannie Win, (1960) DATE OF ADMISSION: 11/15/2018 DATE OF DISCHARGE: 11/18/2018 ADMITTING DIAGNOSIS: NSTEMI (non-ST elevated myocardial infarction) (HCC) PRIMARY CARE PROVIDER: No Physician on file DISCHARGE DIAGNOSES: Tachycardia related EKG changes DISPOSITION: [facility] CARDIAC PROCEDURES AND FINDINGS: Final Impression/Recommendation 1. [...] this chart may have been created with [employer] voice recognition software. 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 However, patient told me he hasn' t taken his BP medication in ~8 months because he has not been able to get out to [facility] to pick them up Best possible STOPPER SETTER medication list after pharmacy review: PT REPORTED TAKING NOT TAKING Medication Sig Last Dose Dispense Doc. Provider lisinopril (PRINIVIL, ZESTRIL) 10 mg tablet Take 1 tablet by mouth Daily. Patient not takvlad ng: Reported on 11/15/2018 Not Taking 30 tablet Nell Carrera MD Medication review performed and electronically signed by Diann Llanes, [employer] 2018 15:54 Reviewed by Ryann Phelan, PharmD [...] pressure. Electronically Signed by: Edy Das MD [facility] 11/17/2018 10:00 [facility] Joey, Edy Gonzalez MD - 12:36 PM [...] has improved. Confirmed by BRIAN ZIMMERMAN, NINFA ([id number]) on 11/15/2018 5:54:47 PM ECHO Complete w [...] disease. Electronically Signed by: Edy Das MD [facility] 11/16/2018 12:36 [facility] achynadNelia Pha rmD - 11/16/2018 5:23 AM [...] [address] | [place] | [phone] | | [facility] | | [address] | | | - LABORATORY | | [...] ST. | [address] | [place], [place] | [phone] | | [facility] | | [address] | | | - LABORATORY | | [...] [address] | [place] | [phone] | | [facility] | | [address] | | | - LABORATORY | | [...] [address] | [place] | [phone] | | [facility] | | [address] | | | - LABORATORY | | [...] + | [facility] | [address] | [place] | [phone] | | [facility] | | [address] | | | - LABORATORY | | [...] ST. | [address] | [place], [place] | [phone] | | [facility] | | [address] | | | - LABORATORY | | [...] [address] | [place] | [phone] | | [facility] | | [address] | | | - LABORATORY | | [...] 0.70 IU/mL | [place] | | | [facility] | | | [facility] | | | - LABORATORY | + + + + + + + + | Performing | Address | City/State/Zipcode | Phone Number | | Organization | | | | + + + + + | [facility] | [address] | [place] | [phone] | | [facility] | | [address] | | | - LABORATORY | | [...] [address] | [place] | [phone] | | [facility] | | [address] | | | - LABORATORY | | [...] | | | | NINFA TORRES MD ([id number]) | | | | | | on [...] [address] | [place] | [phone] | | [facility] | | [address] | | | - LABORATORY | | [...] [address] | [place] | [phone] | | [facility] | | [address] | | | - LABORATORY | | [...] [address] | [place] | [phone] | | [facility] | | [address] | | | - LABORATORY | | [...] ST. | [address] | [place] | [phone] | | [facility] | | [address] | | | - LABORATORY | | [...] | | | | NINFA TORRES MD ([id number]) | | | | | | on [...] [address] | [place] | [phone] | | [facility] | | [address] | | | - LABORATORY | | [...] + | [facility] | [address] | [place] | [phone] | | [facility] | | [address] | | | - LABORATORY | | [...] [address] | [place] | [phone] | | [facility] | | [address] | | | - LABORATORY | | [...] + | [facility] | [address] | [place] | [phone] | | [facility] | | [address] | | | - LABORATORY | | [...] | | | | mmol/L | [facility] | | | | | | MEDICAL [...] | mL/min/1.73m2 | [facility] | | | [facility] | | | MEDICAL | | | [...] [address] | [place] | [phone] | | [facility] | | [address] | | | - LABORATORY | | [...] | | | | WBC's | [facility] | | | | [...] [address] | [place] | [phone] | | [facility] | | [address] | | | - LABORATORY | | [...] | | | | NINFA TORRES MD ([id number]) | | | | | | on [...] PDT | | | | | Starting [facility] 11/15/18 at 1531, For | | | [...] PDT | | | | | ONCE, [facility] 11/15/18 at 1100, For 1 | | [...]
--- OUTSIDE RECORDS SUMMARY | ~2019-08-11 | XMS | Encounter Summary ---
Demographics + + + | Address | NEED ADDRESS | | | [place] [address] | + + + | Home Phone | | + + + | Preferred Language | Unknown | + + + | Marital Status | Single | + + + | Mormonism Affiliation | Unknown | + + + [...] Team Providers + +------+ + | Care [employer] Gang Sawyer Name | Role | Phone | + [...] + + | 05/29/ | Telephone | [facility] | Nell Carrera, | Appointment (no show | | 2016 | | CARDIOLOGY [address] [place] | on 05-05-17 needs | | | | [place], | [place], | rescheduled) | | | | [place] [address] | [place] [address] | | | | | [phone] | [phone] | | | | | | | [...]
--- OUTSIDE RECORDS SUMMARY | ~2019-08-11 | XMS | Clinical Summary ---
Demographics + + + | Address | NEED ADDRESS | | | [place] [address] | + + + | Home Phone | | + + + | Preferred Language | Unknown | + + + | Marital Status | Single | + + + | Alevism Affiliation | Unknown | + + + | Race | Unknown | + + + | Ethnic Group | Unknown | + + + Author + + + | Author | [facility] | | | and [place] | + + + | Organization | [facility] | | | [...] Team Providers + +------+ + | Care Minute Clerk Name | Role | Phone | [...] | | | MD Ross, | abuse ([facility]) (Primary | | | | | León [...] + + | Performing | Address | City/State[facility] | Phone Number | | Organization | [...] [address] | [place] | [phone] | | [facility] | | [address] | | | - LABORATORY | | [...] + | [address] | [address] | [place] | [phone] | | [facility] | | [address] | | | - LABORATORY | | [...] ST. | [address] | [place], [place] | [phone] | | [facility] | | [address] | | | - LABORATORY | | [...] | | en Level | | | [facility] | | | | | | MEDICAL [...] ST. | [address] | [place] | [phone] | | [facility] | | [address] | | | - LABORATORY | | [...] [address] | [place] | [phone] | | [facility] | | [address] | | | - LABORATORY | | [...] | | MEDICAL | | | | mL/min/[id number] than | | CENTER - | | [...] [address] | [place] | [phone] | | [facility] | | [address] | | | - LABORATORY | | | | + + + + + from Last 3 Months Advance Directives + + + + + | Type | Date Recorded | Patient | Explanation | | | | Adhesion Tester | | + + + + + | Power of | | | | | [employer]ist | | | | + + + [...]
[~2019-08-11 13:45] MED LIST changes: +AMOXICILLIN500 MG; +ASPIR 8181 MG PO; +AUGMENTIN 875-1 EACH PO; +LIPITOR80 MG PO; +LISINOPRIL20 MG PO
--- NOTE | 2019-08-11 15:54 | EKG ---
[facility] [address] [facility] [place] [address] Signed Sinus rhythm with premature atrial complexes Nonspecific T wave abnormality Abnormal ECG No previous ECGs available Confirmed by MICHELINE CARRILLO DO ([id number]) on 08/11/2019 3:54:02 PM Electronically Signed By: MICHELINE CARRILLO DO 08/11/19 1554 PATIENT NAME: LACIE WEINER LIZETTE Electrocardiogram DATE OF : 56 PHYSICIAN: MICHELINE CARRILLO DO REPORT #: [id number] REPORT IS CONFIDENTIAL AND NOT TO BE RELEASED WITHOUT AUTHORIZATION
[2019-08-11] MEDS ORDERED: LISINOPRIL20 MG PO (17:17)
== END 2019-08-11 17:34 | disposition home or self-care (01) ==
LOC: ED 13:45
DX: I10 Essential (primary) hypertension (principal); R07.9 Chest pain, unspecified
CPT/HCPCS: 71045; 80053; 83735; 84484; 85025; 93005; 93010; 99285-25